=== PATIENT | male | born 1935 | race Caucasian/White ===

== ENCOUNTER 2017-06-17 22:26 | Observation (INO) | payer MEDICARE, OTHER ==
[~2017-06-17 22:26] MED LIST: ASPI81 PO; ATOR20TA42 PO; DIOV80TA4 PO; GLYB1TAB51 PO; LORT5TAB PO; TOPR50TA PO
[2017-06-17 22:28] VITALS: BP 169/83; PULSE 82; RESP 16; TEMP 98.1; O2SAT 96
[2017-06-17 22:37] VITALS: BP 170/79; PULSE 58; RESP 18; O2SAT 96
[2017-06-17 22:40] VITALS: O2SAT 96
[2017-06-17 23:00] VITALS: BP 141/68; PULSE 60; RESP 16; O2SAT 97
[2017-06-17] MEDS ORDERED: PROP10TA6 PO (23:09)
[2017-06-17] MEDS ORDERED: METF850T PO (23:09)
[2017-06-17] MEDS ORDERED: MAGNESIUM PO (23:09)
[2017-06-17] MEDS ORDERED: GLIP10TA6 PO (23:09)
[2017-06-17] MEDS ORDERED: ASPI81CH6 CHEW (23:09)
[2017-06-17] MEDS ORDERED: LOSA100T2 PO (23:09)
[2017-06-17 23:13] LABS: AUTOMATED NEUTROPHIL # 4.2 TH/MM3 (1.8-7.7); BASOPHIL # 0.1 TH/MM3 (0-0.2); BASOPHIL % 0.7 % (0.0-2.0); EOSINOPHIL # 0.5 TH/MM3 (0-0.4); HEMATOCRIT 39.2 % (39.0-51.0); HEMOGLOBIN 13.8 GM/DL (13.0-17.0); LYMPH % 31.2 % (9.0-44.0); LYMPHOCYTE # 2.4 TH/MM3 (1.0-4.8); MEAN CELL VOLUME 90.7 FL (80.0-100.0); MEAN CORPUSCULAR HGB CONC 35.3 % (32.0-36.0); MEAN PLATELET VOLUME 8.1 FL (7.0-11.0); MONO % 8.1 % (0.0-8.0); MONOCYTE # 0.6 TH/MM3 (0-0.9); PLATELET COUNT 272 TH/MM3 (150-450); RED BLOOD COUNT 4.32 MIL/MM3 (4.50-5.90); RED CELL DISTRIBUTION WIDTH 13.4 % (11.6-17.2); WHITE BLOOD COUNT 7.7 TH/MM3 (4.0-11.0)
[2017-06-17 23:18] LABS: PROTHROMBIN TIME - PATIENT 10.2 SEC (9.8-11.6)
--- NOTE | 2017-06-17 23:20 | RADRPT ---
EXAM DATE/TIME: 06/17/2017 22:59 [place] COMPARISON: No previous studies available for comparison. INDICATIONS : Chest pain. MEDICAL HISTORY : None. SURGICAL HISTORY : Coronary artery stent. ENCOUNTER: Initial ACUITY: 1 day PAIN SCORE: 7/10 LOCATION: Bilateral chest FINDINGS: Portable AP view of the chest demonstrates a normal-sized cardiac silhouette. No effusion, consolidat ion, or pneumothorax is visualized. The bones and soft tissues demonstrate no acute abnormality. CONCLUSION: No acute cardiopulmonary abnormality is identified. Cheng Jorge MD on June 17, 2017 at 23:18 Board Certified Radiologist. This report was verified electronically.
--- NOTE | 2017-06-17 23:23 | PD ---
HPI Chief Complaint: Chest Pain Time Seen by Provider: 22:35 Travel History International Travel<30 days: No Contact w/Intl Traveler<30days: No Traveled to known affect area: No History of Present Illness HPI The patient is an 82 year old male who presents to the [facility] emergency department with a history of chest pain that he reports began 45 minutes to 50 minutes prior to arrival. The patient reports that it began after he ate oatmeal. He reports that it is a tightening sensation across the lower anterior chest bilaterally. The patient denies having any new shortness of breath. He reports that he has chronic shortness of breath related to having collapsed lungs bilaterally years ago. He denies having any diaphoresis. He reports that he has had some nausea without vomiting. He reports that he has had nausea 3 times throughout the day today. He denies having any diarrhea. He reports that the pain was initially an 8 out of 10 in severity and now it is a 6 out of 10 in severity. It has been constant since the onset. The patient does have a known history of coronary artery disease. The patient reports having 2 prior MIs in the past. He has also had 2 stents placed previously. This was reportedly in the year 1999. He reports that his last stress test was 2-3 years ago. He is followed by Dr. Blum for his cardiac care. On review systems, the patient denies having any recent fevers, cough, congestion, neck pain, abdominal pain, vomiting, diarrhea, new urinary symptoms, or neurologic symptoms. [facility] Past Medical History Narrative Medical The patient's past medical history is significant for diabetes mellitus, hypertension, hyperlipidemia, history of having a collapsed lung bilaterally, history of coronary artery disease with 2 prior stents placed, history of myocardial infarction. Diabetes: Yes Patient Takes Glucophage: No Diminished Hearing: No Hypertension: Yes Respiratory: Yes (PNEUMOTHORAX X2 ) Tetanus Vaccination: Unknown Influenza Vaccination: Yes Past Surgical History Narrative Surgical The patient's past surgical history is significant for skin cancer resection, coronary artery catheterization with 2 stents placed previously, dental extractions Coronary Stent: Yes Social History Alcohol Use: Yes (1-2 beers per month) Tobacco Use: No (59 YR AGO) Substance Use: No Allergies-Medications (Allergen,Severity, Reaction): Uncoded Allergies: STATINS (Allergy, Unknown, ITCHING, 06/17/17) Reported Meds & Prescriptions Reported Meds & Active Scripts Active Reported [crestor] Metformin (Metformin HCl) 850 Mg Tab 850 Mg PO TIDPC Glipizide 10 Mg Tab 10 Mg PO BIDAC Take 30 minutes before a meal Propranolol (Propranolol HCl) 10 Mg Tab 100 Mg PO TID Losartan-Hydrochlorothiazide 100-25 Mg Tab 1 Tab PO DAILY [Magnesium] 1 Tab PO DAILY Aspirin Low Dose (Aspirin) 81 Mg Chew 81 Mg CHEW DAILY Review of Systems Except as stated in HPI: all other systems reviewed are Neg General / Constitutional: No: Fever Eyes: No: Visual changes HENT: No: Headaches, Rhinorrhea, Congestion Cardiovascular: Positive: Chest Pain or Discomfort Respiratory: Positive: Shortness of Breath (chronic shortness of breath), No: Cough Gastrointestinal: No: Nausea, Vomiting, Diarrhea, Abdominal Pain Genitourinary: No: Dysuria Musculoskeletal: No: Pain Skin: No Rash Neurologic: No: Weakness, Focal Abnormalities, Change in Mentation, Slurred Speech, Sensory Disturbance Psychiatric: No: Depression Endocrine: No: Polydipsia Hematologic/Lymphatic: No: Easy Bruising Physical Exam Narrative General: The patient is a well-developed well-nourished male in no acute distress. Head and Neck exam: Head is normocephalic atraumatic. Eyes: EOMI, pupils are equal round and reactive to light. Nose: Midline septum with pink mucous membranes Mouth: Dentition unremarkable. Moist mucus membranes. Posterior oropharynx is not erythematous. No tonsillar hypertrophy. Uvula midline. Airway patent. Neck: No palpable lymphadenopathy. No nuchal rigidity. No thyromegaly. Cardiovascular: Regular rate and rhythm without murmurs, gallops, or rubs. Lungs: Clear to auscultation bilaterally. No wheezes, rhonchi, or rales. Abdomen: Soft, without tenderness to palpation in all 4 quadrants of the abdomen. No guarding, rebound, or rigidity. Normal bowel sounds are audible. No tenderness on palpation of McBurney's point. Negative Souza's sign. Extremities: No clubbing, cyanosis, or edema. 2+ pulses in all 4 extremities. No calf tenderness on palpation. Back: No spinous process tenderness to palpation. No costovertebral angle tenderness to palpation. Neurologic Exam: Grossly nonfocal. Skin Exam: No rash noted. Intact skin that is warm and dry. Data Data Last Documented VS Vital Signs Date Time Temp Pulse Resp B/P (MAP) Pulse Ox O2 Delivery O2 Flow Rate FiO2 06/18/17 01:00 71 16 92/54 (67) 99 Room Air 06/17/17 22:28 98.1 Orders Orders Electrocardiogram (06/17/17 22:50) Complete Blood Count With Diff (06/17/17 22:50) Comprehensive Metabolic Panel (06/17/17 22:50) Creatine Kinase (Cpk) (06/17/17 22:50) Ckmb (Isoenzyme) Profile (06/17/17 22:50) Troponin I (06/17/17 22:50) B-Type Natriuretic Peptide (06/17/17 22:50) Prothrombin Time / Inr (Pt) (06/17/17 22:50) Act Partial Throm Time (Ptt) (06/17/17 22:50) Lipase (06/17/17 22:50) Urinalysis - C+S If Indicated (06/17/17 22:50) Magnesium (Mg) (06/17/17 22:50) Chest, Single Ap (06/17/17 22:50) Iv Access Insert/Monitor (06/17/17 22:50) Ecg Monitoring (06/17/17 22:50) Oximetry (06/17/17 22:50) Nitroglycerin 2% Oint (Nitroglycerin 2% (06/17/17 23:30) Nitroglycerin Sl (Nitrostat Sl) (06/17/17 23:30) Famotidine Inj (Pepcid Inj) (06/17/17 23:30) Ondansetron Inj (Zofran Inj) (06/17/17 23:30) Activity Bed Rest With Brp (06/18/17 02:00) Vital Signs (Adult) Q4H (06/18/17 02:00) Cardiac Rhythm .As Directed (06/18/17 02:00) Notify Dr: Other .PRN (06/18/17 02:00) Notify Parameters (06/18/17 02:00) Resp Oxygen Nasal Cannula (06/18/17 ) Ckmb (Isoenzyme) Profile (06/18/17 02:00) Ckmb (Isoenzyme) Profile (06/18/17 05:00) Troponin I (06/18/17 02:00) Troponin I (06/18/17 05:00) Electrocardiogram (06/18/17 02:00) Electrocardiogram (06/18/17 05:00) ^ Obtain (06/18/17 02:00) Sodium Chloride 0.9% Flush (Ns Flush) (06/18/17 02:00) Sodium Chloride 0.9% Flush (Ns Flush) (06/18/17 09:00) Commercial Finance Analyst / Telemetry BEV.Q8H (06/18/17 02:00) Admit Order (Ed Use Only) (06/18/17 02:00) Labs Laboratory Tests Test 06/17/17 22:50 06/18/17 02:00 White Blood Count 7.7 TH/MM3 Red Blood Count 4.32 MIL/MM3 Hemoglobin 13.8 GM/DL Hematocrit 39.2 % Mean Corpuscular Volume 90.7 FL Mean Corpuscular Hemoglobin 32.0 PG Mean Corpuscular Hemoglobin Concent 35.3 % Red Cell Distribution Width 13.4 % Platelet Count 272 TH/MM3 Mean Platelet Volume 8.1 FL Neutrophils (%) (Auto) 54.0 % Lymphocytes (%) (Auto) 31.2 % Monocytes (%) (Auto) 8.1 % Eosinophils (%) (Auto) 6.0 % Basophils (%) (Auto) 0.7 % Neutrophils # (Auto) 4.2 TH/MM3 Lymphocytes # (Auto) 2.4 TH/MM3 Monocytes # (Auto) 0.6 TH/MM3 Eosinophils # (Auto) 0.5 TH/MM3 Basophils # (Auto) 0.1 TH/MM3 CBC Comment DIFF FINAL Differential Comment Prothrombin Time 10.2 SEC Prothromb Time International Ratio 1.0 RATIO Activated Partial Thromboplast Time 24.4 SEC Blood Urea Nitrogen 27 MG/DL Creatinine 1.57 MG/DL Random Glucose 185 MG/DL Total Protein 8.0 GM/DL Albumin 3.8 GM/DL Calcium Level 9.3 MG/DL Magnesium Level 1.7 MG/DL Alkaline Phosphatase 99 U/L Aspartate Amino Transf (AST/SGOT) 72 U/L Alanine Aminotransferase (ALT/SGPT) 45 U/L Total Bilirubin 0.4 MG/DL Sodium Level 138 MEQ/L Potassium Level 3.8 MEQ/L Chloride Level 100 MEQ/L Carbon Dioxide Level 28.2 MEQ/L Anion Gap 10 MEQ/L Estimat Glomerular Filtration Rate 43 ML/MIN Total Creatine Kinase 49 U/L Troponin I LESS THAN 0.02 NG/ML B-Type Natriuretic Peptide 23 PG/ML Lipase 160 U/L Urine Color YELLOW Urine Turbidity CLEAR Urine pH 5.0 Urine Specific [place] 1.018 Urine Protein TRACE mg/dL Urine Glucose (UA) 300 mg/dL Urine Ketones NEG mg/dL Urine Occult Blood NEG Urine Nitrite NEG Urine Bilirubin NEG Urine Urobilinogen 2.0 MG/DL Urine Leukocyte Esterase NEG Urine RBC 1 /hpf Urine WBC LESS THAN 1 /hpf Urine Squamous Epithelial Cells <1 /hpf Urine Hyaline Casts 1 /lpf Urine Mucus FEW /lpf Microscopic Urinalysis Comment CULT NOT INDICATED MDM Medical Decision Making Medical Screen Exam Complete: Yes Emergency Medical Condition: Yes Medical Record Reviewed: Yes Interpretation(s) Last Impressions Myocardial Perfusion Scan Nuc Med 06/18/17 0000 Signed Impressions: Service Date/Time: Sunday, June 18, 2017 13:13 - CONCLUSION: 1. Large size moderate to marked severity reversible defect involving the entire anterior wall and potentially the apex. Ischemia is not excluded. RISK CATEGORY: High (>3%% Annual Mortality Rate) Noe Nichole MD Chest X-Ray 06/17/17 2250 Signed Impressions: Service Date/Time: Saturday, June 17, 2017 22:59 - CONCLUSION: No acute cardiopulmonary abnormality is identified. Cheng Jorge MD Differential Diagnosis Acute coronary syndrome, versus dyspepsia, versus acid reflux, versus pancreatitis, versus biliary colic, versus gastritis Narrative Course During the course of the patients emergency department visit, the patients history, examination, and differential diagnosis were reviewed with the patient. The patient was placed on a hall monitor with oximetry and frequent blood pressure monitoring. The patient had IV access obtained and blood work sent for analysis. The patient had an EKG done on arrival that shows a sinus rhythm heart rate of 74, inferior TX that appears to be old with Q-wave in lead 3, aVF, QRS duration is 107 ms, QTC [address] segment elevation is noted. T waves are inverted in V1. The patient was initially provided nitroglycerin 1 inch the chest wall, nitroglycerin sublingual every 5 minutes 3 when necessary chest pain. The patient took 2 adult dosed aspirin prior to arrival. The patient was given famotidine 20 mg IV, Zofran 4 mg IV for nausea. The patients laboratory studies were reviewed and remarkable for A CBC that shows a white count of 7.7, hemoglobin 13.8, platelets 272 with 8.1 monocytes, CMP is remarkable for a BUN of 27, creatinine 1.57, glucose 185, AST 72, cardiac enzymes initial set are within normal limits, BNP is 23, lipase 160. PT 10.2, PTT 24.4. Urinalysis is unremarkable. Radiology studies were reviewed and remarkable for a chest x-ray that shows no acute cardiopulmonary disease. The patients results were discussed with the patient, including the plan of care. I explained that further testing and/ or monitoring is indicated based on the patients history, examination, and/ or laboratory findings. Therefore, I recommended admission for additional evaluation. The patient expressed understanding and was agreeable with this plan. The patient was admitted to the hospital in stable condition and sent to a bed under the care of chest pain center. Diagnosis Primary Impression: Chest pain, rule out acute myocardial infarction Admitting Information Admitting Physician Requests: Neema Oswald MD Jun 17, 2017 23:23
[2017-06-17 23:24] LABS: ALBUMIN 3.8 GM/DL (3.4-5.0); ALT (GPT) 45 U/L (12-78); AST (GOT) 72 U/L (15-37); BICARBONATE 28.2 MEQ/L (21.0-32.0); BLOOD UREA NITROGEN 27 MG/DL (7-18); CALCIUM 9.3 MG/DL (8.5-10.1); CHLORIDE 100 MEQ/L (98-107); CREATININE 1.57 MG/DL (0.60-1.30); GLOMERULAR FILTRATION RATE 43 ML/MIN (>89); GLUCOSE,RANDOM 185 MG/DL (74-106); MAGNESIUM 1.7 MG/DL (1.5-2.5); SODIUM (NA) 138 MEQ/L (136-145)
[2017-06-17 23:28] LABS: ALKALINE PHOSPHATASE 99 U/L (45-117); TOTAL BILIRUBIN ADULT 0.4 MG/DL (0.2-1.0); TROPONIN I LESS THAN 0.02 NG/ML (0.02-0.05)
[2017-06-17] MEDS ORDERED: FAMOTIDINE 20 MG/2 ML VIAL IV PUSH SCH (23:30)
[2017-06-17] MEDS ORDERED: ONDANSETRON HCL 4 MG/2 ML VIAL IV ONE (23:30)
[2017-06-17] MEDS ORDERED: NITROGLYCERIN 2% OINT 1 GM PACKET TOPICAL ONE (23:30)
[2017-06-17] MEDS ORDERED: NITROGLYCERIN 0.4 MG SL 25 TABS/BTL SL PRN (23:30)
[2017-06-18] VITALS (15 sets, daily range): BP systolic 92–139; BP diastolic 54–86; PULSE 60–90; RESP 16–18; TEMP 97.4–98.7; O2SAT 94–99
[2017-06-18] MEDS ORDERED: SODIUM CHLORIDE 0.9% FLUSH 10 ML FLUSH IV FLUSH PRN (02:00)
[2017-06-18 02:36] LABS: BILIRUBIN, URINE NEG (NEG); BLOOD, URINE NEG (NEG); GLUCOSE,URINE 300 mg/dL (NEG); HYALINE CAST, URINE 1 /lpf (RARE); KETONE, URINE NEG (NEG); MUCUS URINE FEW /lpf (OCC); NITRITE,URINE NEG (NEG); SQUAMOUS EPITHELIAL CELL URINE <1 /hpf (0-5); URINE COLOR YELLOW (YELLW/STRAW); URINE LEUKOCYTE ESTERASE NEG (NEG)
[2017-06-18 02:48] LABS: TROPONIN I LESS THAN 0.02 NG/ML (0.02-0.05)
[2017-06-18 05:24] LABS: TROPONIN I LESS THAN 0.02 NG/ML (0.02-0.05)
[2017-06-18] MEDS ORDERED: GLUCAGON 1 MG/ML VIAL OTHER PRN (07:45)
[2017-06-18] MEDS ORDERED: DEXTROSE 50% IN WATER 50 ML VIAL(D50) IV PUSH PRN (07:45)
[2017-06-18] MEDS: INSULIN ASPART SUPPLEMENTAL SCALE SQ SCH ×3 (08:00→21:18)
--- NOTE | 2017-06-18 11:24 | HHI.HP ---
[facility] Primary Care Physician Paramjit Guthrie MD Chief Complaint Chest pain History of Present Illness This is an 82-year-old male that presents to ED with a complaint of developing a discomfort last night. He has history of hypertension, diabetes, and CAD. He states that 3 MIs. He had 2 stents in 1999. He currently follows Dr. Blum and saw her a few months ago. Believes his last stress test was a few years ago that was okay. States that last night while at home he developed a discomfort. Describes the discomfort as a tightness across the entire chest. Seemed to worsen as time went on. He states he was given sublingual nitroglycerin in the ED which did not change his symptoms. States that eventually the symptoms resolved within about 2 hours. He had no associated shortness of breath, nausea, or diaphoresis. States that it does not feel similar to when he needed stents in 1999. Currently denies chest discomfort. Denies recent fevers or chills. Denies recent illness. States he has been compliant with his medications. Review of Systems General: Patient denies fevers, chills recent, and recent travel HEENT: Patient denies headache, sore throat, difficulty swallowing. Cardiovascular: Has the chest discomfort as mentioned above. Denies sensation of heart beating rapidly or irregularly. No syncope. Denies diaphoresis. Respiratory: Denies shortness of breath or inspirational chest discomfort. Denies coughing wheezing or hemoptysis. GI: Patient denies nausea, vomiting, diarrhea, abdominal pain, bloody stools. Musculoskeletal: Patient denies joint pain or edema. Denies calf pain or edema. Neurovascular: Patient denies numbness, tingling, weakness in extremities. Denies headache. Endocrine: Denies polyuria and polydipsia. Hematologic: Denies easy bruising. Skin: Denies rash or itching. Past Family Social History Allergies: Uncoded Allergies: STATINS (Allergy, Unknown, ITCHING, 06/17/17) Past Medical History CAD. Has had 2 stents. Hypertension, diabetes, hyperlipidemia. Past Surgical History Has had cardiac catheterizations. Had stents in 1999. Reported Medications Reported Meds & Active Scripts Active Reported Metformin (Metformin HCl) 850 Mg Tab 850 Mg PO TIDPC Glipizide 10 Mg Tab 10 Mg PO BIDAC Take 30 minutes before a meal Propranolol (Propranolol HCl) 10 Mg Tab 100 Mg PO TID Losartan-Hydrochlorothiazide 100-25 Mg Tab 1 Tab PO DAILY [Magnesium] 1 Tab PO DAILY Aspirin Low Dose (Aspirin) 81 Mg Chew 81 Mg CHEW DAILY Active Ordered Medications Current Medications Medications (Trade) Dose Ordered Sig/Gómez Route Start Time Stop Time Status Last Admin (Nitrostat Sl) 0.4 mg Q5M PRN SL 06/17/17 23:30 06/17/17 23:50 (Pepcid Inj) 20 mg NOW IV PUSH 06/17/17 23:30 06/17/17 23:50 (NS Flush) 2 ml UNSCH PRN IV FLUSH 06/18/17 02:00 (NS Flush) 2 ml BID IV FLUSH 06/18/17 09:00 (D50w (Vial) Inj) 50 ml UNSCH PRN IV PUSH 06/18/17 07:45 (Glucagon Inj) 1 mg UNSCH PRN OTHER 06/18/17 07:45 (NovoLOG SUPPLEMENTAL SCALE) 1 ACHS SLIDING SCALE SQ 06/18/17 08:00 (Inderal) 100 mg TID PO 06/18/17 09:00 UNV Non-Formulary Medication 1 tab DAILY PO 06/18/17 09:00 UNV Family History There is family history of CAD. Social History Quit smoking 60 years ago. States he smoked less than a half a pack a day for 10 years. Has an occasional beer. Denies illicit drugs. He has been for 61 years. Physical Exam Vital Signs Vital Signs Date Time Temp Pulse Resp B/P (MAP) Pulse Ox O2 Delivery O2 Flow Rate FiO2 06/18/17 09:03 96 21 06/18/17 08:00 97.4 67 18 128/66 (86) 96 06/18/17 04:15 97.6 68 18 132/65 (87) 95 06/18/17 03:33 06/18/17 03:00 68 16 138/65 (89) 97 Room Air 06/18/17 01:00 71 16 92/54 (67) 99 Room Air 06/18/17 00:10 63 16 120/58 (78) 98 Room Air 06/18/17 00:00 60 16 104/62 (76) 97 Room Air 06/17/17 23:00 60 16 141/68 (92) 97 Room Air 06/17/17 22:40 96 Room Air 06/17/17 22:37 58 18 170/79 (109) 96 06/17/17 22:28 98.1 82 16 169/83 (111) 96 Room Air Physical Exam GENERAL: This is a well-nourished, well-developed patient, in no apparent distress. Patient speaks in clear complete sentences. Patient is pleasant. HEENT: Head is atraumatic and normocephalic. Neck is supple without lymphadenopathy and trachea is midline. No JVD. Right carotid bruit. CARDIOVASCULAR: Grade 2 systolic murmur left sternal border. Regular rate and rhythm without gallops, or rubs. RESPIRATORY: Clear to auscultation. Breath sounds equal bilaterally. No wheezes , rales, or rhonchi. Chest wall is nontender. No use of accessory muscles. GASTROINTESTINAL: Abdomen is nontender, nondistended. Abdomen soft. No obvious pulsatile mass or bruit. No CVA tenderness. Strong femoral pulses bilaterally. Normal bowel sounds in all quadrants. MUSCULOSKELETAL: Patient is moving upper and lower extremities freely. No calf tenderness or edema, no Homans sign. Strong pulses in upper and lower extremities. NEUROLOGICAL: Patient is alert and oriented. Cranial nerves 2-12 are grossly intact. No focal deficits and speech is clear. SKIN: No rash and turgor is normal. Laboratory Laboratory Tests Test 06/17/17 22:50 06/18/17 02:00 06/18/17 02:15 06/18/17 04:10 White Blood Count 7.7 Red Blood Count 4.32 Hemoglobin 13.8 Hematocrit 39.2 Mean Corpuscular Volume 90.7 Mean Corpuscular Hemoglobin 32.0 Mean Corpuscular Hemoglobin Concent 35.3 Red Cell Distribution Width 13.4 Platelet Count 272 Mean Platelet Volume 8.1 Neutrophils (%) (Auto) 54.0 Lymphocytes (%) (Auto) 31.2 Monocytes (%) (Auto) 8.1 Eosinophils (%) (Auto) 6.0 Basophils (%) (Auto) 0.7 Neutrophils # (Auto) 4.2 Lymphocytes # (Auto) 2.4 Monocytes # (Auto) 0.6 Eosinophils # (Auto) 0.5 Basophils # (Auto) 0.1 CBC Comment DIFF FINAL Differential Comment Prothrombin Time 10.2 Prothromb Time International Ratio 1.0 Activated Partial Thromboplast Time 24.4 Blood Urea Nitrogen 27 Creatinine 1.57 Random Glucose 185 Total Protein 8.0 Albumin 3.8 Calcium Level 9.3 Magnesium Level 1.7 Alkaline Phosphatase 99 Aspartate Amino Transf (AST/SGOT) 72 Alanine Aminotransferase (ALT/SGPT) 45 Total Bilirubin 0.4 Sodium Level 138 Potassium Level 3.8 Chloride Level 100 Carbon Dioxide Level 28.2 Anion Gap 10 Estimat Glomerular Filtration Rate 43 Total Creatine Kinase 49 40 33 Troponin I LESS THAN 0.02 LESS THAN 0.02 LESS THAN 0.02 B-Type Natriuretic Peptide 23 Lipase 160 Urine Color YELLOW Urine Turbidity CLEAR Urine pH 5.0 Urine Specific [place] 1.018 Urine Protein TRACE Urine Glucose (UA) 300 Urine Ketones NEG Urine Occult Blood NEG Urine Nitrite NEG Urine Bilirubin NEG Urine Urobilinogen 2.0 Urine Leukocyte Esterase NEG Urine RBC 1 Urine WBC LESS THAN 1 Urine Squamous Epithelial Cells <1 Urine Hyaline Casts 1 Urine Mucus FEW Microscopic Urinalysis Comment CULT NOT INDICATED Result Diagram: 06/17/17224906/17/172249 Imaging Last 48 hours Impressions Chest X-Ray 06/17/172249 Signed Impressions: Service Date/Time: Saturday, June 17, 2017 22:59 - CONCLUSION: No acute cardiopulmonary abnormality is identified. Cheng Jorge MD Course EKGs are sinus rhythm without significant ST segment depressions or elevations. Caprini VTE Risk Assessment Caprini VTE Risk Assessment: Mod/High Risk (score >= 2) Caprini Risk Assessment Model Point Value = 1 Point Value = 2 Point Value = 3 Point Value = 5 Age 41-60 Minor surgery BMI > 25 kg/m2 Swollen legs Varicose veins or History of unexplained or recurrent spontaneous Oral contraceptives or hormone replacement Sepsis (< 1 month) Serious lung disease, including pneumonia (< 1 month) Abnormal pulmonary function Acute myocardial infarction Congestive heart failure (< 1 month) History of inflammatory bowel disease Medical patient at bed rest Age 61-74 Arthroscopic surgery Major open surgery (> 45 min) Laparoscopic surgery (> 45 min) Malignancy Confined to bed (> 72 hours) Immobilizing plaster cast Central venous access Age >= 75 History of VTE Family history of VTE Factor V Leiden Prothrombin [id number] Lupus anticoagulant Anticardiolipin antibodies Elevated serum homocysteine Heparin-induced thrombocytopenia Other congenital or acquired thrombophilia Stroke (< 1 month) Elective arthroplasty Hip, pelvis, or leg fracture Acute spinal cord injury (< 1 month) Prophylaxis Regimen Total Risk Factor Score Risk Level Prophylaxis Regimen 0-1 Low Early ambulation 2 Moderate Order ONE of the following: *Sequential Compression Device (SCD) *Heparin 5000 units SQ BID 3-4 Higher Order ONE of the following medications: *Heparin 5000 units SQ TID *Enoxaparin/Lovenox 40 mg SQ daily (WT < 150 kg, CrCl > 30 mL/min) *Enoxaparin/Lovenox 30 mg SQ daily (WT < 150 kg, CrCl > 10-29 mL/min) *Enoxaparin/Lovenox 30 mg SQ BID (WT < 150 kg, CrCl > 30 mL/min) AND/OR *Sequential Compression Device (SCD) 5 or more Highest Order ONE of the following medications: *Heparin 5000 units SQ TID (Preferred with Epidurals) *Enoxaparin/Lovenox 40 mg SQ daily (WT < 150 kg, CrCl > 30 mL/min) *Enoxaparin/Lovenox 30 mg SQ daily (WT < 150 kg, CrCl > 10-29 mL/min) *Enoxaparin/Lovenox 30 mg SQ BID (WT < 150 kg, CrCl > 30 mL/min) AND *Sequential Compression Device (SCD) Assessment and Plan Assessment and Plan * Chest pain: Patient has had serial cardiac enzymes and EKGs for ruling out purposes. He has been seen by Dr. Noe Juarez of cardiology in the chest pain center and will undergo a Lexiscan. 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 Return to ED for interval issues. Dr. Blum is aware of patient and she will be notified if stress test is abnormal. * Hypertension: Continue current medication. * Diabetes: Patient will be on sliding scale insulin coverage. Resume medication at discharge. Follow diabetic diet. * Hyperlipidemia: Patient had not been taking statins for a while. States it made him itch. Recently he was placed on Crestor and has been taking it for 1 week and has had no issues. Patient to continue the medication follow-up with PCP. * CAD: This will be reassessed with stress testing. Patient is stable at this time. He is agreeable to this plan. Felipe Taavrez Jun 18, 2017 11:24
[2017-06-18] MEDS: SODIUM CHLORIDE 0.9% FLUSH 10 ML FLUSH IV FLUSH SCH ×2 (11:51→21:00)
[2017-06-18] MEDS ORDERED: LOSARTAN 50 MG TAB PO SCH (12:45)
[2017-06-18] MEDS ORDERED: HYDROCHLOROTHIAZIDE 25 MG TAB PO SCH (12:45)
[2017-06-18] MEDS ORDERED: PROPRANOLOL HCL 10 MG TAB PO SCH (13:00)
[2017-06-18] MEDS ORDERED: REGADENOSON INJ 0.4 MG/5 ML SYR ONE (13:14)
--- NOTE | 2017-06-18 14:28 | EKG ---
Date Performed: 06/18/2017 Time Performed: 02:13:12 PTAGE: 82 years EKG: Sinus rhythm INFERIOR MYOCARDIAL INFARCTION ABNORMAL ECG NO PREVIOUS TRACING DOCTOR: Noe Juaerz Interpretating Date/Time 06/18/2017 14:26:29
--- NOTE | 2017-06-18 14:29 | EKG ---
Date Performed: 06/17/2017 Time Performed: 22:40:28 PTAGE: 82 years EKG: Sinus rhythm INFERIOR MYOCARDIAL INFARCTION ABNORMAL ECG NO PREVIOUS TRACING DOCTOR: Noe Juarez Interpretating Date/Time 06/18/2017 14:27:27
--- NOTE | 2017-06-18 14:30 | EKG ---
Date Performed: 06/18/2017 Time Performed: 05:15:45 PTAGE: 82 years EKG: Sinus rhythm INFERIOR MYOCARDIAL INFARCTION ABNORMAL ECG PREVIOUS TRACING : 06/18/2017 02.13 Since previous tracing, no significant change noted DOCTOR: oNe Juarez Interpretating Date/Time 06/18/2017 14:28:41
--- NOTE | 2017-06-18 14:30 | TR ---
Date Performed: 06/18/2017 Time Performed: 13:32:48 DOCTOR: Noe Juarez DRUG LIST: CLINICAL HISTORY: CHEST PAIN REASON FOR TEST: CHEST PAIN REASON FOR ENDING: OBSERVATION: CONCLUSION: Lexiscan stress test was performed under standard four minute protocol. Radionuclid e was injected one minute prior to ending the test. No electrocardiographic abormalities were present to suggest ischemia. Nuclear imaging and interpretation are pending. COMMENTS:
--- NOTE | 2017-06-18 14:58 | RADRPT ---
EXAM DATE/TIME: 06/18/2017 13:13 [place] COMPARISON: No previous studies available for comparison. INDICATIONS : Substernal chest pain with nausea. Angina. Coronary artery disease. DOSE: 25.5 mCi Tc99m Myoview at stress. 8.5 mCi Tc99m Myoview at rest. 0.4 mg Lexiscan STRESS SYMPTOMS: None noted. EJECTION FRACTION: > 70% MEDICAL HISTORY : Hypertension. Diabetes mellitus type 2. Myocardial infarction. SURGICAL HISTORY : Coronary artery stent. ENCOUNTER: Initial ACUITY: 1 day PAIN SCALE: 6/10 LOCATION: Substernal chest TECHNIQUE: The patient underwent pharmacologic stress with infusion of prescribed dose. Continuous ECG tracing was monitored during stress. Gated SPECT imaging was performed after stress and conventional SPECT i maging was performed at rest. The examination was performed on a SPECT/CT scanner, both attenuation and non-corrected datasets were reviewed. FINDINGS: DISTRIBUTION: The maximum perfused segment at stress is in the septal wall. PERFUSION STUDY: There is a large size moderate to marked severity reversible defect involving the entire anterior wal l. This also extends the apex. Ischemia is not excluded. GATED STUDY: There is intact wall motion and thickening without hypokinetic or dyskinetic segments. CONCLUSION: 1. Large size moderate to marked severity reversible defect involving the entire anterior wall and po tentially the apex. Ischemia is not excluded. RISK CATEGORY: High (>3% Annual Mortality Rate) Noe Nichole MD on June 18, 2017 at 14:52 Board Certified Radiologist. This report was verified electronically.
[2017-06-18] MEDS ORDERED: crestor (15:17)
[2017-06-18] MEDS ORDERED: ASPIRIN 325 MG TAB PO SCH (15:45)
[2017-06-18] MEDS ORDERED: SODIUM CHLOR 0.9% 1000 ML INJ 1,000 ML IV SCH (16:00)
[2017-06-18] MEDS ORDERED: HEPARIN-NS/PF FLUSH BAG 1,000 ML IV FLUSH ONE (16:45)
[2017-06-18] MEDS ORDERED: VERAPAMIL HCL 5 MG/2 ML VIAL ONE (16:45)
[2017-06-18] MEDS ORDERED: HEPARIN SODIUM - IV 10,000 UNITS/10 ML VIAL ONE (16:45)
[2017-06-18] MEDS ORDERED: NITROGLYCERIN INJ 5 ML ONE (16:46)
[2017-06-18] MEDS ORDERED: MIDAZOLAM HCL 2 MG/2 ML VIAL ONE (16:52)
[2017-06-18] MEDS ORDERED: TICAGRELOR 90 MG TAB PO ONE (18:00)
--- NOTE | 2017-06-18 18:12 | CATHPROC ---
[employer] HIS Report Study Information Study Number Admission Scheduled Start Study Start [id number] Jun 18 2017 2:01AM 06/18/2017 Jun 18 2017 4:37PM [place] [facility] Cardiac Catheterization Admit Source Facility Department Emergency department [facility] - Customer Support Coordinator Physician and Clinical Staff Initial MD Waters, Tip Beebe RN, Sarah Yusuf RN Other cathlab, cathlab Recorder Pool Emerson RCIS(BS) Scrub Snehal Cummings RT(R) Procedures Performed Procedure Location (Site) Vessel Name Coronary Angiograms LCA Left Coronary Coronary Angiograms RCA Right Coronary Drug Eluting Inflatio CIRC Prox CIRC L Heart Cath PTCA CIRC Prox CIRC Wire insertion Radial (right) Radial Art. Equipment Time Workers Compensation Coordinator Description Size Mfg Part Number Used/Scraped WIRE, BALANCE MIDDLEWEIGHT [id number] 17:27 [employer] 190CM Used 190CM *[id number] WIRE, BALANCE MIDDLEWEIGHT [id number] 17:24 [employer] 300CM Used 300CM *[id number] WIRE, WHISPER W/HYDROCOAT [id number] 17:35 [employer] 190CM Used 190CM *[id number] TRANSDUCER, TRUWAVE [id number] 16:39 SMALLS ROBERTSON * Used W/STOCKCOCK *[id number] *[id number] 16:39 [employer] INDUSTRIES PACK, CCL CUSTOM * Used *[id number] 16:39 Garpun SUPPORT, ARTERIAL ADULT 34900 *[id number] Used [id number] 17:26 MEDTRONIC BALLOON, 2.5 X 10MM EUPHORA 10MM Used *[id number] BALLOON, 2.75 X 6MM NC [id number] 17:49 MEDTRONIC 6MM Used EUPHORA *[id number] 17:06 MEDTRONIC JR 4.0 DXTERITY CATHETER FR 5 Used *[id number] 17:43 MEDTRONIC STENT, 2.75 12MM JESS 2.75 12MM Used *[id number] 17:23 MEDTRONIC/AVE EBU 3.5 Z2 GUIDE CATHETER FR 6 Used *[id number] 17:20 iPrint 30 ISAIAH INDEFLATOR Used *[id number] BAND, RADIAL COMPRESSION TR [id number] 17:58 [employer] MEDICAL 29CM Used LARGE 29 *[id number] 16:39 [employer] MEDICAL WIRE, EXCHANGE 260CM 3MMJ 260CM Used *[id number] 16:39 NAMIC MANIFOLD, 4 PORT * Used *[id number] 16:39 NYCOMED OMNIPAQUE, 350 MG, 150ML 150ML [id number] Used [id number] 16:39 CENTENO MEDICAL BLANKET,WARM AIR CCL * Used *[id number] SHEATH, FR6 TRANSRADIAL [id number] 16:39 TERPerfectO MEDICAL FR 6 Used SLENDER 10CM *[id number] Equipment Model, Serial, Lot Number and Expiration Data Description Model Number Serial Number Lot Number Expiration Date STENT, 2.75 12MM JESS [id number] 01-11-2019 History: Current Medications Medication Dosage/Unit Route Frequency Last Date/Time Taken ASA Statins (any) Beta Dominga History: Allergies Allergy Reaction STATINS ITCHING History: Risk Factors Family History of Hypertension Dyslipidemia Previous MT Previous Heart Failure Premature CAD No Yes Yes Yes No Prior Valve Prior PCI Prior PCIDate Prior CABG Surgery No Yes 05/12/1999 No Cerebrovascular Peripheral Artery Chronic Lung On Dialysis Diabetes Diabetes Therapy Disease Disease Disease No No No No Yes Oral History: Symptoms/Diagnosis Selection Items Chest pain History: CV Disease Selection Items Known CAD History: Stress Tests Stress or Imaging Studies Performed Yes Standard Exercise Stress Test No Stress Echo No Stress Test SPECT Stress Test SPECT Result Stress Test SPECT Ischemia Risk/Extent Yes Positive Intermediate Stress Test CMR No Cardiac CTA Coronary Calcium Score No No History: Other Disease Selection Items CAD HTN History: MT/CV Data Previous Cath Date 05/12/1999 History: Other Current Smoker Method Quit Packs a Day Years Used Pack Years No Cigarettes 60 Years Ago 1 5 5 Labs Hgb (g/dl) Hct (%) WBC (l/cumm) Platelets (thousands) 11.60-17.00 35.00-51.00 4.00-11.00 150.00-450.00 13.8 39.2 7.7 272 Glucose (mg/dl) BUN (mg/dl) Creatinine (mg/dl) BUN:Creatinine (1:x) 74.00-106.00 7.00-18.00 0.50-1.30 10.00-20.00 185 27 1.5 18 Na (meq/l) K (meq/l) 136.00-145.00 3.50-5.10 138 3.8 INR (PTT:PT) 0.90-1.10 1 Troponin I (ng/ml) CPK (u/l) CPK-MB (ng/ML) 0.02-0.05 26.00-308.00 0.50-3.60 0.02 33 Not Drawn Medication Medication Total Dose (Bolus/Oral) Medication Total Dosage/Unit 1% XYLOCAINE 3 mL BRILINTA 180 mg FENTANYL 25 mcg HEPARIN 5500 units RADIAL COCKTAIL 5 mL (Bolus) VERSED 0.5 mg Medications (Bolus/Oral) Medication Time Given Dosage/Unit Administered By Reason 1% XYLOCAINE 06/18/2017 5:06:50 PM 3 mL Tip Waters 3 mL 1% XYLOCAINE given in lab by Tip Waters in Right Radial via Subcutaneous. VERSED 06/18/2017 5:07:56 PM 0.5 mg Sarah Ya 0.5 mg VERSED given in lab by Sarah Ya RN in Right Forearm via Peripheral IV. Ordered by Tip Mari FENTANYL 06/18/2017 5:08:06 PM 25 mcg Sarah Ya 25 mcg FENTANYL given in lab by Sarah Ya RN in Right Forearm via Peripheral IV. Ordered by Tip Lopes Ntg 200mcg Verapamil 2.5mg Heparin RADIAL COCKTAIL 06/18/2017 5:08:30 PM 5 mL (Bolus) Tip Waters 3000U 5 mL (Bolus) RADIAL COCKTAIL given in lab by Tip Waters in Right Radial via Radial. Using [S olution Name]. Reason: Ntg 200mcg Verapamil 2.5mg Heparin 4000U. HEPARIN 06/18/2017 5:24:34 PM 5500 units Sarah Ya 5500 units HEPARIN given in lab by Sarah Ya RN in Right Forearm via Peripheral IV. Ordered by Tip Waters BRILINTA 06/18/2017 6:05:02 PM 180 mg Sarah Ya 180 mg BRILINTA given in lab by Sarah Ya RN via Oral. Ordered by Tip Waters Medication (Drip) Medication Time Given Dosage/Unit Concentration/Unit Diluent (ml) Solution IV Solutions 06/18/2017 4:37:50 PM 0 mL (IV) 500 NaCl .9 Patient arrived on IV Solutions given by cathlab, cathlab in Right Forearm via Peripheral IV. Pump/Dr ip Flow = 20 ml/hr using NaCl .9. Ordered by Tip Waters Initial Case Assessment Cardiovascular HR Rhythm NIBP Chest Pain 77 nsr 143/88 0 Edema Present Skin color Skin None Normal Warm Dry Circulatory - Right Pulses Dorsalis Pedis Femoral Radial 2 2 2 Scale (0,1,2,3,4,d) Circulatory - Left Pulses Dorsalis Pedis Femoral Radial 2 2 Scale (0,1,2,3,4,d) Neurological State Oriented to time-place- Alert Moves all extremities person Respiration - General Respiration Rate SpO2 (%) (B/min) 15 99 Final Case Assessment Cardiovascular HR Rhythm NIBP Chest Pain 70 nsr 146/86 0 Edema Present Skin color Skin None Normal Warm Dry Circulatory - Right Pulses Dorsalis Pedis Femoral Radial 2 2 2 Scale (0,1,2,3,4,d) Circulatory - Left Pulses Dorsalis Pedis Femoral Radial 2 2 Scale (0,1,2,3,4,d) Neurological State Oriented to time-place- Alert Moves all extremities person Respiration - General Respiration Rate SpO2 (%) (B/min) 15 99 Chronological Log Time Study Chronological Log 16:30:00 Patient arrived via Bed. 16:30:24 Patient Name, D.O.B, / Armband Verified By R.N. 16:30:26 Consent signed by the physician and the patient and verified by the Customer Support Coordinator staff. 16:37:32 Pre-op and post- op instructions given; patient acknowledges understanding of instructions. 16:37:33 Verbal Stimulation=2 Physical Stimulation=2 Airway=2 Respiration=2 TOTAL=8. (0=absent, 1=li mited, 2=present) 16:37:41 Presedation assessment performed by Customer Support Coordinator RN. 16:37:42 Immediate Presedation assesment performed by physician. 16:37:42 Patient has been NPO for More than 6Hrs. 16:37:43 Skin Breakdown- none per patient 16:37:44 Patient Warmer Placed on the Table. 16:37:44 Guicho Prominences Protected 16:37:46 A # 20 IV was noted in the Forearm (right). Grade = 0 Patient arrived on IV Solutions given by cathlab, cathlab in Right Forearm via Peripheral IV. P ump/Drip Flow = 20 ml/hr 16:37:50 using NaCl .9. Ordered by Tip Waters 16:37:50 History and physical on the chart or being dictated. Vitals capture started with the following parameters, Patient=Adult, Interval=5 min, Initial Pr fzpowr=784 mmHg, 16:42:08 Deflation Rate=5 mmHg, Cuff placed on Left Arm 16:42:11 Reference ECG taken 16:43:21 HR=88 bpm, ONEB=055/84 mmhg, SpO2=96.0 %, Resp=14 B/min, Pain=0, Eb=10, Agosto=2 Assessment: Initial Case, HR=77 BPM, Rhythm=nsr, FYDI=111/88 mmhg, Chest Pain=0, Edema=None, Co alessandro=Normal, Skin = Warm, Dry Right Pulses: Rahat Ped=2, Femoral=2, Radial=2 16:44:00 Left Pulses: Rahat Ped=2, Femoral=2 Neurological: State=Alert, Ox3, DE DIOS Respiration: Resp=15 B/min, SpO2=99 % 16:47:45 HR=77 bpm, IYNO=627/88 mmhg, SpO2=97.0 %, Resp=11 B/min, Pain=0, Eb=10, Agosto=2 16:52:44 HR=77 bpm, JNQT=675/84 mmhg, SpO2=96.0 %, Resp=13 B/min, Pain=0, Eb=10, Agosto=2 16:56:10 Right Radial and groin(s) prepped with 2% chlorhexidine, and draped after a 3 min. waiting time. 16:57:43 HR=74 bpm, GFFN=616/89 mmhg, SpO2=97.0 %, Resp=10 B/min, Pain=0, Eb=10, Gaosto=2 16:59:15 MD arrived. 16:59:17 Contrast Scanned 16:59:18 Immediate Presedation assesment performed by physician. 17:02:44 HR=77 bpm, VLRJ=419/92 mmhg, SpO2=97 %, Resp=12 B/min, Pain=0, Eb=10, Agosto=2 17:04:41 Pressure channel 1 zeroed. Time Out. Correct patient, correct procedure, correct physician, power injector not loaded with contrast with surgical 17:06:03 team present. Time Out Concurred by MD and individual staff in procedure. 17:06:23 Case Start 17:06:26 Verbal Stimulation=2 Physical Stimulation=2 Airway=2 Respiration=2 TOTAL=8. (0=absent, 1=li mited, 2=present) 17:06:50 3 mL 1% XYLOCAINE given in lab by Tip Waters in Right Radial via Subcutaneous. 17:07:47 HR=75 bpm, SUKY=216/78 mmhg, SpO2=97.0 %, Resp=17 B/min, Pain=0, Eb=10, Agosto=2 0.5 mg VERSED given in lab by Sarah Ya, RN in Right Forearm via Peripheral IV. Ordered Tip Bee 17:07:56 G. 25 mcg FENTANYL given in lab by Sarah aY, RAHUL in Right Forearm via Peripheral IV. Ordered by Tip Waters 17:08:06 G. 17:08:16 Access site was Right Radial Artery. A SHEATH, FR6 TRANSRADIAL SLENDER 10CM FR 6 was advanced into the Radial (right) using the Perc utaneous 17:08:22 technique. 5 mL (Bolus) RADIAL COCKTAIL given in lab by Tip Waters in Right Radial via Radial. Us ing [Solution Name]. 17:08:30 Reason: Ntg 200mcg Verapamil 2.5mg Heparin 4000U. A JR 4.0 DXTERITY CATHETER FR 5 was advanced over a wire. OMNIPAQUE, 350 MG, 150ML 150ML was us ed for 17:08:47 injections. 17:12:44 HR=91 bpm, RTWY=110/78 mmhg, SpO2=94.0 %, Resp=11 B/min, Pain=0, Eb=10, Agosto=2 Recorded Pressure: LV, HR=93, Condition=Condition 1 17:12:51 (Left Ventricle) LV 113/-1/2 Recorded Pressure: LV, Ao, HR=92, Condition=Condition 1 17:13:05 (Left Ventricle) LV 113/-2/1, (Aorta) Ao 112/66/87 Recorded Pressure: Ao, HR=91, Condition=Condition 1 17:13:16 (Aorta) Ao 108/66/85 17:15:43 The RCA was injected and visualized at various angles. OMNIPAQUE, 350 MG, 150ML 150ML used . After removing the current catheter a JL 3.5 INFINITI CATHETER FR 5 was advanced over a WIRE, E XCHANGE 260CM 17:17:12 3MMJ 260CM. 17:17:41 HR=83 bpm, JVZC=406/73 mmhg, SpO2=96.0 %, Resp=14 B/min, Pain=0, Eb=10, Agosto=2 17:19:08 The LCA was injected and visualized at various angles. OMNIPAQUE, 350 MG, 150ML 150ML used . 17:22:45 HR=74 bpm, BDDJ=504/72 mmhg, SpO2=95.0 %, Resp=10 B/min, Pain=0, Eb=10, Agosto=2 After removing the current catheter a EBU 3.5 Z2 GUIDE CATHETER FR 6 was advanced over a WIRE, EXCHANGE 17:23:48 260CM 3MMJ 260CM. 5500 units HEPARIN given in lab by Sarah Ya, RN in Right Forearm via Peripheral IV. Orde red by Jt, 17:24:34 Tip Brooks 17:27:48 HR=74 bpm, PGTX=626/71 mmhg, SpO2=97.0 %, Resp=10 B/min, Pain=0, Eb=10, Agosto=2 17:28:20 A WIRE, BALANCE MIDDLEWEIGHT 190CM 190CM was inserted via Radial (right). 17:32:47 HR=73 bpm, VFMW=084/78 mmhg, SpO2=95.0 %, Resp=10 B/min, Pain=0, Eb=10, Agosto=2 17:36:53 A WIRE, WHISPER W/HYDROCOAT 190CM 190CM was inserted via Radial (right). 17:37:50 HR=70 bpm, JSLV=821/74 mmhg, SpO2=95 %, Resp=9 B/min, Pain=0, Eb=10, Agosto=2 17:39:47 Interventional wire has crossed the lesion A BALLOON, 2.5 X 10MM EUPHORA 10MM was inserted over WIRE, WHISPER W/HYDROCOAT 190CM 190CM via the 17:39:51 CIRC Prox. 17:40:27 BMW Wire removed 17:41:20 Activated Clotting Time Drawn A BALLOON, 2.5 X 10MM EUPHORA 10MM over a WIRE, WHISPER W/HYDROCOAT 190CM 190CM in the CIRC Pro x 17:41:32 was inflated using a 30 ISAIAH INDEFLATOR at 12 isaiah for 30 sec. 17:42:40 Balloon Removed. 17:42:47 HR=72 bpm, PSRY=200/86 mmhg, SpO2=99.0 %, Resp=11 B/min, Pain=0, Eb=10, Agosto=2 A STENT, 2.75 12MM JESS 2.75 12MM was advanced through a EBU 3.5 Z2 GUIDE CATHETER FR 6 over a WIRE, 17:44:16 WHISPER W/HYDROCOAT 190CM 190CM. 17:45:19 ACT (Normal Range 90-180) = 291 A STENT, 2.75 12MM JESS 2.75 12MM was deployed using a 30 ISAIAH INDEFLATOR at 14 atmospheres for 30 seconds 17:45:26 in the CIRC Prox. 17:46:11 Delivery device removed 17:48:33 HR=70 bpm, OYCK=746/89 mmhg, UrW7=841.0 %, Resp=15 B/min, Pain=0, Eb=10, Agosto=2 A BALLOON, 2.75 X 6MM NC EUPHORA 6MM was inserted over WIRE, WHISPER W/HYDROCOAT 190CM 190CM vi a the 17:49:04 CIRC Prox. 17:51:30 Balloon Removed. 17:52:19 A WIRE, BALANCE MIDDLEWEIGHT 190CM 190CM was inserted via Radial (right). 17:52:25 Interventional wire has crossed the lesion A BALLOON, 2.75 X 6MM NC EUPHORA 6MM was inserted over WIRE, WHISPER W/HYDROCOAT 190CM 190CM vi a the 17:52:50 CIRC Prox. 17:52:55 HR=71 bpm, YTXI=904/82 mmhg, SpO2=99.0 %, Resp=12 B/min 17:53:18 Wire removed A BALLOON, 2.75 X 6MM NC EUPHORA 6MM over a WIRE, WHISPER W/HYDROCOAT 190CM 190CM in the CIRC P nino 17:53:49 was inflated using a 30 ISAIAH INDEFLATOR at 16 isaiah for 16 sec. A BALLOON, 2.75 X 6MM NC EUPHORA 6MM over a WIRE, WHISPER W/HYDROCOAT 190CM 190CM in the CIRC P nino 17:54:34 was inflated using a 30 ISAIAH INDEFLATOR at 16 isaiah for 10 sec. A BALLOON, 2.75 X 6MM NC EUPHORA 6MM over a WIRE, WHISPER W/HYDROCOAT 190CM 190CM in the CIRC P nino 17:55:25 was inflated using a 30 ISAIAH INDEFLATOR at 18 isaiah for 14 sec. 17:56:30 Balloon Removed. 17:57:45 Wire removed 17:57:52 HR=70 bpm, YJRL=175/86 mmhg, SpO2=99.0 %, Resp=12 B/min, Pain=0, Eb=10, Agosto=2 17:58:01 Catheter was removed 17:59:51 Case End Assessment: Final Case, HR=70 BPM, Rhythm=nsr, QNFF=837/86 mmhg, Chest Pain=0, Edema=None, [place] r=Normal, Skin = Warm, Dry Right Pulses: Rahat Ped=2, Femoral=2, Radial=2 18:00:37 Left Pulses: Rahat Ped=2, Femoral=2 Neurological: State=Alert, Ox3, DE DIOS Respiration: Resp=15 B/min, SpO2=99 % 18:00:52 Catheter(s) removed without difficulty Radial Compression Device Used. 12 mLs of air placed in BAND, RADIAL COMPRESSION TR LARGE 29 2 9CM. Affected 18:00:53 hand 99 % O2 saturation. 18:01:02 Sterile dressing applied to site 18:01:03 No case complications noted. 18:01:03 Cine recording checked. 18:01:04 Bedside Report will be given. 18:01:05 Implantable Device card placed in patient's chart. 18:01:06 Contrast Scanned 18:01:07 Verbal Stimulation=2 Physical Stimulation=2 Airway=2 Respiration=2 TOTAL=8. (0=absent, 1=l imited, 2=present) 18:01:15 A Left Heart Cath was performed. 18:02:53 HR=67 bpm, XQRR=970/80 mmhg, SpO2=99.0 %, Resp=12 B/min, Pain=0, Eb=10, Agosto=2 18:05:02 180 mg BRILINTA given in lab by Sarah Ya RN via Oral. Ordered by Tip Waters 18:05:39 Vitals capture stopped. 18:10:59 Patient moved to [facility] End Study - Contrast Media Used In Study Contrast Total Opened (mL) Total Used (mL) Total Wasted (mL) Omnipaque 85 85 0 End Study - Maximum Contrast Load Max Contrast Load (mL) 316.7 End Study - Radiation Exposure Fluoro Time (minutes) 13.6 End Study - Patient Disposition Complications Transferred To Interventional Outcome No Telemetry Bed successful
[2017-06-18] MEDS: SODIUM CHLOR 0.9% 1000 ML INJ 1,000 ML IV SCH (18:33)
[2017-06-18] MEDS ORDERED: oxyCODONE/ACETAMINOPHEN 5 MG/325 MG TAB PO PRN (18:45)
[2017-06-18] MEDS ORDERED: ACETAMINOPHEN 325 MG TAB PO PRN (18:45)
[2017-06-18] MEDS ORDERED: MISC INFORMATION XX ONE (18:45)
[2017-06-18] MEDS ORDERED: MORPHINE SULFATE 4 MG/ML INJ IV PUSH PRN (18:45)
[2017-06-18] MEDS ORDERED: oxyCODONE/ACETAMINOPHEN 10 MG/325 MG TAB PO PRN (18:45)
[2017-06-18] MEDS: PROPRANOLOL HCL 20 MG TAB PO SCH (21:18)
[2017-06-19] VITALS (14 sets, daily range): BP systolic 114–146; BP diastolic 71–88; PULSE 61–88; RESP 16–20; TEMP 97.7; O2SAT 96–97
[2017-06-19] MEDS: SODIUM CHLOR 0.9% 1000 ML INJ 1,000 ML IV SCH (04:33)
[2017-06-19 05:54] LABS: AUTOMATED NEUTROPHIL # 4.5 TH/MM3 (1.8-7.7); BASOPHIL % 0.7 % (0.0-2.0); EOSINOPHIL # 0.4 TH/MM3 (0-0.4); EOSINOPHIL % 5.4 % (0.0-4.0); HEMATOCRIT 39.7 % (39.0-51.0); LYMPHOCYTE # 1.5 TH/MM3 (1.0-4.8); MEAN CELL VOLUME 92.2 FL (80.0-100.0); MEAN CORPUSCULAR HEMOGLOBIN 32.5 PG (27.0-34.0); MEAN CORPUSCULAR HGB CONC 35.2 % (32.0-36.0); MONO % 8.1 % (0.0-8.0); MONOCYTE # 0.6 TH/MM3 (0-0.9); NEUT % 64.8 % (16.0-70.0); PLATELET COUNT 259 TH/MM3 (150-450); RED BLOOD COUNT 4.31 MIL/MM3 (4.50-5.90); RED CELL DISTRIBUTION WIDTH 12.8 % (11.6-17.2)
[2017-06-19 06:01] LABS: CALCIUM 9.6 MG/DL (8.5-10.1); CREATININE 1.53 MG/DL (0.60-1.30)
--- NOTE | 2017-06-19 06:28 | MA ---
cc: TIP GUTIERREZ DO DATE OF PROCEDURE June 18, 2017 PROCEDURE Left heart catheterization, coronary angiogram, [facility] drug-eluting stent (2.75 x 12) to left circumflex, moderate sedation, 50 minutes PREPROCEDURE DIAGNOSIS Abnormal stress test, coronary artery disease, chest pain. POSTPROCEDURE DIAGNOSIS Unstable angina/coronary artery disease status post [place] drug-eluting stent (2.75 x 12) to left circumflex. MEDICATIONS 1. Versed 0.5 mg. 2. Fentanyl 25 mcg. 3. Verapamil 2.5 mg. 4. Nitro 200 mcg. 5. Heparin 9500 units. 6. Brilinta 180 mg. CONTRAST USED 85 cc. FLUOROSCOPY 13.6 minutes. MODERATE SEDATION 50 minutes. ESTIMATED BLOOD LOSS 10 cc. PROCEDURAL SUMMARY Rafael Morales is a pleasant 82-year-old male who sees my partner Dr. Blum in the office and presented with chest pain concerning for coronary insufficiency. He underwent stress testing which was called anterior ischemia. I reviewed the films and overall imaging is poor showing decreased uptake throughout all the fournier in comparison to the rest imaging. Overall I believe it is difficult to ascertain from the imaging if there is truly ischemia in any of the fournier. In discussing with Mr. Morales, his chest pain was definitely concerning and I felt that his next option should be cardiac catheterization. The risks, benefits and alternatives were explained to him and he consented as such. He was brought to lab and prepped in the usual sterile fashion. The right radial artery was accessed using a modified Seldinger technique and placement of a 5/6 Divehi Slender Sheath. This was easily aspirated and flushed. A JR-4 was advanced over a J-wire to the ascending aorta and across the aortic valve for measurement of left ventricular pressure. This was pulled back across the aortic valve showing no significant gradient of aortic stenosis. JR-4 was used for selective angiography of the right coronary artery system. This was exchanged out for a JL-3.5 which was used for selective angiography of the left coronary artery system. Please see intervention below for further notes. FINDINGS LEFT MAIN: Normal-sized vessel with adequate reflux. It bifurcates into an LAD and circumflex. LAD: Normal-sized vessel with mild disease in the proximal portion. The midportion has a stent which is patent with 30% in-stent restenosis. Distal of this there is diffuse 40-50% disease in the tmy-vd-tgvjgg portion of the LAD. The LAD gives off two major diagonals with no significant disease. LEFT CIRCUMFLEX Normal-sized vessel with a 95% stenosis in the proximal portion. It gives off two major obtuse marginals, one at the level of the stenosis and the other distally with no significant disease. RCA: Normal-sized vessel was diffuse 30% disease throughout the proximal portion. The midportion has a stent which is patent with 30% in-stent restenosis. LVEDP: 1. INTERVENTION Stress test showed possible anterior ischemia but the LAD obviously looked like it had diffuse disease distally but not felt to be as significant as the left circumflex by any means. He did have chest pain which was concerning for coronary insufficiency and with the significance of disease of his left circumflex at 95%, I felt that this should be intervened on. An EBU guide was engaged into the left main. A BMW was attempted to advance across the lesion but was unable to due to the transition point on the BMW. So, a moderate support Whisper wire was then advanced into the distal obtuse marginal. A compliant balloon (2.5 x 10) was then inflated over the lesion. An [facility] drug-eluting stent (2.75 x 12) was then inflated over the lesion. I was unable to get a Non-Compliant balloon past the front edge of the stent due to the angle of the takeoff and so a BMW wire was used as a kelsey wire and the Non-Compliant balloon (2.75 x 6) was then advanced and inflated over the length of the stent. Final angiogram shows a well opposed stent with no perforations or dissections and DORA-3 flow down the first obtuse marginal with no disruption of the coronary anatomy. Wire and guide were removed. A radial band was placed over the arteriotomy site for hemostasis. The patient was loaded with 180 mg of Brilinta. 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 IMPRESSION 1. Unstable angina/coronary artery disease status post Corbin drug-eluting stent (2.75 x 12). 2. Abnormal stress test with overall showing possible anterior ischemia, although review of the imaging shows poor uptake throughout most of the fournier and felt that overall this was a poor imaging study to determine his ischemic territories. 3. Diabetes mellitus. 4. Hyperlipidemia. RECOMMENDATIONS 1. Mr. Morales underwent PCI of his left circumflex with a drug-eluting stent and will be placed on aspirin and Brilinta therapy. 2. He is currently on beta luna and statin therapy and this will be continued. 3. We will hold off on adding FREDERIC inhibitor therapy due to his chronic kidney disease. If kidney function is stabilized, this could be reconsidered in the outpatient setting. 4. He will be watched overnight and if stable be discharged home tomorrow with a plan for followup with Dr. Blum in the near future. 5. His metformin will need to be held for 48 hours postprocedure. 6. Further recommendations will be made based on the hospital course. Thank you for allowing me to see Rafael Morales. If there are any questions, please do not hesitate to call. Tip Gutierrez DO VGP/SSB /6:13 PM /6:06 AM
--- NOTE | 2017-06-19 06:44 | MB ---
cc: TRAMAINE WATERS DO DATE OF CONSULTATION June 18, 2017 REASON FOR CONSULTATION Unstable angina, abnormal stress test. HISTORY OF PRESENT ILLNESS Rafael Morales is a pleasant 82-year-old male who sees my partner Dr. Blum in the office and presented to [facility] on June 18, 2017, due to chest pain. He states that last night after eating some oatmeal he sat down and started getting pain across the center his chest which was a tightness. It seemed to worsen as time went on and he eventually took some sublingual nitroglycerin in the emergency room which seemed to make the pain somewhat better. The pain ended up resolving around 2 hours after this while in the emergency room. He denies shortness of breath, nausea or diaphoresis with the episode. In seeing him, he is currently resting without chest pain or shortness of breath. PAST MEDICAL HISTORY 1. Coronary artery disease. 2. Hypertension. 3. Diabetes mellitus. 4. Hyperlipidemia. PAST SURGICAL HISTORY Previous cardiac catheterization (1999) with stenting of his RCA and LAD. ALLERGIES PREVIOUS STATINS, although attempting to take Crestor at this time. MEDICATIONS 1. Propranolol 100 mg t.i.d. 2. Losartan/hydrochlorothiazide 100/25 mg daily. 3. Aspirin 81 mg daily. 4. Metformin 850 mg t.i.d. 5. Glipizide 100 mg b.i.d. 6. Crestor unknown dose. FAMILY HISTORY Denies premature coronary artery disease or sudden cardiac within the family. SOCIAL HISTORY The patient previously smoked but quit 60 years ago. He smoked less than half a pack per day for 10 years. He occasionally will drink a beer. He denies any drug abuse. REVIEW OF SYSTEMS 14-systems were reviewed including osteopathic pertinent positives and negatives above, otherwise negative. PHYSICAL EXAMINATION VITAL SIGNS: Temperature 97.8, heart rate 70, blood pressure 123/71, respirations 18, pulse ox 94% on room air. IN GENERAL: The patient appears well, in no acute distress. Alert, awake and oriented x3. Extraocular muscles intact. Mucous membranes moist. NECK: Supple. No JVD at 45 degrees. No carotid bruits heard bilaterally. Carotid upstroke is brisk in nature. HEART: Regular rate and rhythm. Positive first and second heart sounds with no noted murmurs, gallops or rubs. LUNGS: Clear to auscultation bilaterally. No wheezes, rales or rhonchi. Abdomen: Soft, nontender, nondistended. No organomegaly noted. EXTREMITIES: No clubbing, cyanosis or edema. Femoral and distal pulses intact bilaterally. NEUROLOGICALLY: No focal deficits. SKIN: Warm, dry and intact. OSTEOPATHIC: No kyphoscoliosis, lordosis or paraspinal tender points. LABORATORY FINDINGS Hemoglobin 13.8, hematocrit 39.2, platelets 272. Potassium 3.8, BUN 27, creatinine 1.57. Troponin negative x3. IMPRESSIONS 1. Chest pain concerning for coronary insufficiency. 2. History of coronary artery disease. 3. Abnormal stress test. 4. Hypertension. 5. Diabetes mellitus. 6. Hyperlipidemia. 7. Chronic kidney disease verses acute kidney injury. RECOMMENDATIONS 1. Mr. Morales presented with what sounded like unstable angina with significant chest pain at rest. He did undergo stress testing and overall stress testing is poor, imaging showing decreased uptake throughout the whole left ventricle in comparison to the rest testing. Overall this was called anterior ischemia and I see what they are discussing but I find it difficult to determine any ischemia based on this as I think it is overall a poor imaging study. 2. Because of this, I will recommend cardiac catheterization as he has what sounds like significant chest pain and a stress test which overall I think it is difficult to diagnose ischemia. The risks, benefits and alternatives were explained to him and he consented as such. 3. We do not have a previous creatinine here. I attempted to call Dr. Guthrie, his primary care physician, to get a previous creatinine but they were closed at the time. I did get a previous creatinine from around a year ago from our office where his creatinine was around 1.4 and so I believe this is most likely his baseline. He will be lightly hydrated. 4. His metformin will need to be held 48 hours postprocedure. 5. Further recommendations will be made based on the hospital course. Thank you for allowing me to see Rafael Morales. If there are any questions, sujit do not hesitate to call. Tramaine Waters DO VGP/SSB /6:25 PM /6:17 AM
[2017-06-19] MEDS: INSULIN ASPART SUPPLEMENTAL SCALE SQ SCH (08:00)
[2017-06-19] MEDS ORDERED: TICAGRELOR 90 MG TAB PO SCH (09:00)
[2017-06-19] MEDS ORDERED: ASPIRIN 81 MG CHEW TAB CHEW SCH (09:00)
[2017-06-19] MEDS: SODIUM CHLORIDE 0.9% FLUSH 10 ML FLUSH IV FLUSH SCH (09:48)
[2017-06-19] MEDS: PROPRANOLOL HCL 20 MG TAB PO SCH (09:52)
[2017-06-19] MEDS ORDERED: BRIL90TA PO (11:10)
--- NOTE | 2017-06-19 11:15 | HHI.DS ---
Discharge Summary Admission Date Jun 18, 2017 at 02:01 Discharge Date: Jun 19, 2017 Admitting Diagnosis cp r/o MS (1) Unstable angina ICD Code: I20.0 - Unstable angina (2) Coronary artery disease ICD Code: I25.10 - Atherosclerotic heart disease of [place] coronary artery without angina pectoris Procedures Heart catheterization Brief History - From Admission This is an 82-year-old male that presents to ED with a complaint of developing a discomfort last night. He has history of hypertension, diabetes, and CAD. He states that 3 MIs. He had 2 stents in 1999. He currently follows Dr. Blum and saw her a few months ago. Believes his last stress test was a few years ago that was okay. States that last night while at home he developed a discomfort. Describes the discomfort as a tightness across the entire chest. Seemed to worsen as time went on. He states he was given sublingual nitroglycerin in the ED which did not change his symptoms. States that eventually the symptoms resolved within about 2 hours. He had no associated shortness of breath, nausea, or diaphoresis. States that it does not feel similar to when he needed stents in 1999. Currently denies chest discomfort. Denies recent fevers or chills. Denies recent illness. States he has been compliant with his medications. CBC/BMP: 06/19/17 0435 06/19/17 0435 Significant Findings Laboratory Tests Test 06/17/17 22:50 06/18/17 02:00 06/18/17 02:15 06/18/17 04:10 Red Blood Count 4.32 MIL/MM3 (4.50-5.90) Monocytes (%) (Auto) 8.1 % (0.0-8.0) Eosinophils (%) (Auto) 6.0 % (0.0-4.0) Eosinophils # (Auto) 0.5 TH/MM3 (0-0.4) Blood Urea Nitrogen 27 MG/DL (7-18) Creatinine 1.57 MG/DL (0.60-1.30) Random Glucose 185 MG/DL (74-106) Aspartate Amino Transf (AST/SGOT) 72 U/L (15-37) Estimat Glomerular Filtration Rate 43 ML/MIN (>89) Troponin I LESS THAN 0.02 NG/ML LESS THAN 0.02 NG/ML LESS THAN 0.02 NG/ML Urine Glucose (UA) 300 mg/dL (NEG) Urine Mucus FEW /lpf (OCC) Total Creatine Kinase 33 U/L (39-308) Test 06/19/17 04:35 Red Blood Count 4.31 MIL/MM3 (4.50-5.90) Monocytes (%) (Auto) 8.1 % (0.0-8.0) Eosinophils (%) (Auto) 5.4 % (0.0-4.0) Blood Urea Nitrogen 25 MG/DL (7-18) Creatinine 1.53 MG/DL (0.60-1.30) Random Glucose 242 MG/DL (74-106) Estimat Glomerular Filtration Rate 44 ML/MIN (>89) Hospital Course Andrew is an 82-year-old male. He was admitted secondary to unstable angina. He has a history of 2 stents placed in year 1999. Stress testing was suspicious for ischemia. He had a cardiac heart catheter here and this demonstrated no focal defect but diffuse coronary artery disease with patent stents. He was placed on Proventil and is continued on aspirin, statin, beta luna. Patient symptoms are now resolved and he's been cleared by cardiology for discharge to home today. Patient is medically stable and cleared for discharge home today. Pt Condition on Discharge: Stable Discharge Disposition: Discharge Home Discharge Time: <= 30 minutes Discharge Instructions DIET: Follow Instructions for: Heart Healthy Diet Activities you can perform: Regular-No Restrictions Follow up Referrals: Cardiology - 2 Weeks PCP Follow-up - 2 Weeks New Medications: Ticagrelor (Brilinta) 90 Mg Tab 90 MG PO BID for Blood Clot Prevention, #60 TAB Continued Medications: Aspirin (Aspirin Low Dose) 81 Mg Chew 81 MG CHEW DAILY, TAB 0 Refills Glipizide (Glipizide) 10 Mg Tab 10 MG PO BIDAC for Blood Sugar Management, #60 TAB 0 Refills Take 30 minutes before a meal Losartan-Hydrochlorothiazide (Losartan-Hydrochlorothiazide) 100-25 Mg Tab 1 TAB PO DAILY for Blood Pressure Management, #30 TAB 0 Refills Metformin (Metformin) 850 Mg Tab 850 MG PO TIDPC for Blood Sugar Management, TAB 0 Refills Propranolol (Propranolol) 10 Mg Tab 100 MG PO TID, #60 TAB 0 Refills [crestor] () [Magnesium] () 1 TAB PO DAILY Derrek Rodriguez MD Jun 19, 2017 11:15
[2017-06-19] MEDS ORDERED: ROSU40 PO (11:45)
--- NOTE | 2017-06-19 11:47 | PD.CARD.PN ---
Subjective Subjective Remarks No events overnight Doing well, no complaints Objective Medications Current Medications Medications (Trade) Dose Ordered Sig/Gómez Route Start Time Stop Time Status Last Admin (Nitrostat Sl) 0.4 mg Q5M PRN SL 06/17/17 23:30 06/17/17 23:50 (Pepcid Inj) 20 mg NOW IV PUSH 06/17/17 23:30 06/17/17 23:50 (NS Flush) 2 ml UNSCH PRN IV FLUSH 06/18/17 02:00 (NS Flush) 2 ml BID IV FLUSH 06/18/17 09:00 06/19/17 09:48 (D50w (Vial) Inj) 50 ml UNSCH PRN IV PUSH 06/18/17 07:45 (Glucagon Inj) 1 mg UNSCH PRN OTHER 06/18/17 07:45 (NovoLOG SUPPLEMENTAL SCALE) 1 ACHS SLIDING SCALE SQ 06/18/17 08:00 06/19/17 08:00 (Cozaar) 100 mg DAILY PO 06/18/17 12:45 Future Hold 06/18/17 15:24 (Hydrodiuril) 25 mg DAILY PO 06/18/17 12:45 Future Hold 06/18/17 15:24 (Inderal) 100 mg TID PO 06/18/17 18:00 06/19/17 09:52 (Tylenol) 325 mg Q4H PRN PO 06/18/17 18:45 (Percocet 5-325 Mg) 1 tab Q4H PRN PO 06/18/17 18:45 (Percocet 10-325 Mg) 1 tab Q4H PRN PO 06/18/17 18:45 (Morphine Inj) 2 mg Q30M PRN IV PUSH 06/18/17 18:45 (Brilinta) 90 mg BID PO 06/19/17 09:00 06/19/17 09:47 (Aspirin Chew) 81 mg DAILY CHEW 06/19/17 09:00 06/19/17 09:47 Vital Signs / I&O Vital Signs Date Time Temp Pulse Resp B/P (MAP) Pulse Ox O2 Delivery O2 Flow Rate FiO2 06/19/17 07:49 68 16 114/76 (89) 97 06/19/17 06:04 63 06/19/17 05:01 61 06/19/17 04:00 64 06/19/17 03:00 97.7 64 145/88 (107) 96 06/19/17 03:00 63 06/19/17 02:00 66 06/19/17 01:00 62 06/19/17 00:16 97.7 67 146/82 (103) 96 06/19/17 00:00 88 06/18/17 23:00 63 06/18/17 22:00 74 06/18/17 21:00 90 06/18/17 20:00 84 06/18/17 19:00 76 06/18/17 19:00 98.4 89 139/86 (103) 96 06/18/17 18:23 68 06/18/17 18:17 98.7 74 18 130/69 (89) 97 06/18/17 12:32 97.8 70 18 123/71 (88) 94 I/O 06/18/17 06/18/17 06/18/17 06/19/17 06/19/17 06/19/17 07:00 15:00 23:00 07:00 15:00 23:00 Intake Total 0 ml 480 ml Output Total 750 ml 950 ml Balance -750 ml -470 ml Intake Oral 0 ml 480 ml Output Urine Total 750 ml 950 ml Physical Exam GENERAL: NAD, AAOx3 SKIN: Warm and dry. HEAD: Atraumatic. Normocephalic. EYES: Pupils equal and round. No scleral icterus. No injection or drainage. ENT: No nasal bleeding or discharge. Mucous membranes pink and moist. NECK: Trachea midline. No JVD. CARDIOVASCULAR: Regular rate and rhythm. RESPIRATORY: No accessory muscle use. Clear to auscultation. Breath sounds equal bilaterally. GASTROINTESTINAL: Abdomen soft, non-tender, nondistended. Hepatic and splenic margins not palpable. MUSCULOSKELETAL: Extremities without clubbing, cyanosis, or edema. No obvious deformities. Right radial no hematoma, neurovascularly intact NEUROLOGICAL: Awake and alert. No obvious cranial nerve deficits. Motor grossly within normal limits. Five out of 5 muscle strength in the arms and legs. Normal speech. PSYCHIATRIC: Appropriate mood and affect; insight and judgment normal. Laboratory Laboratory Tests Test 06/19/17 04:35 White Blood Count 7.0 TH/MM3 Red Blood Count 4.31 MIL/MM3 Hemoglobin 14.0 GM/DL Hematocrit 39.7 % Mean Corpuscular Volume 92.2 FL Mean Corpuscular Hemoglobin 32.5 PG Mean Corpuscular Hemoglobin Concent 35.2 % Red Cell Distribution Width 12.8 % Platelet Count 259 TH/MM3 Mean Platelet Volume 8.0 FL Neutrophils (%) (Auto) 64.8 % Lymphocytes (%) (Auto) 21.0 % Monocytes (%) (Auto) 8.1 % Eosinophils (%) (Auto) 5.4 % Basophils (%) (Auto) 0.7 % Neutrophils # (Auto) 4.5 TH/MM3 Lymphocytes # (Auto) 1.5 TH/MM3 Monocytes # (Auto) 0.6 TH/MM3 Eosinophils # (Auto) 0.4 TH/MM3 Basophils # (Auto) 0.0 TH/MM3 CBC Comment DIFF FINAL Differential Comment Blood Urea Nitrogen 25 MG/DL Creatinine 1.53 MG/DL Random Glucose 242 MG/DL Calcium Level 9.6 MG/DL Sodium Level 137 MEQ/L Potassium Level 3.8 MEQ/L Chloride Level 100 MEQ/L Carbon Dioxide Level 32.0 MEQ/L Anion Gap 5 MEQ/L Estimat Glomerular Filtration Rate 44 ML/MIN Assessment and Plan Problem List: (1) HTN (hypertension) ICD Codes: I10 - Essential (primary) hypertension (2) HLD (hyperlipidemia) ICD Codes: E78.5 - Hyperlipidemia, unspecified (3) CKD (chronic kidney disease) ICD Codes: N18.9 - Chronic kidney disease, unspecified (4) Coronary artery disease ICD Codes: I25.10 - Atherosclerotic heart disease of [place] coronary artery without angina pectoris (5) Unstable angina ICD Codes: I20.0 - Unstable angina Assessment and Plan 1) PCI of LCx ASA/Brilinta Con't BB/Statin Currently on ARB, will have to watch Creatinine outpt with PCP 2) DM Hold metformin until tomorrow 3) If Brilinta too expensive will call Dr. CURRY or myself to change to Plavix 4) Cardiovascularly stable for discharge Will follow up with Dr. CURRY in 2-4 weeks Tip Waters DO Jun 19, 2017 11:47
== END 2017-06-19 13:58 | disposition home or self-care (01) ==
LOC: NEPE 22:26 → NEDA 06-18 02:01 → NEDH 06-18 06:01 → NEPGCP 06-18 11:56 → HCIS 06-18 16:11
PROVIDERS: ADMIT Hospitalist; ATTEND Hospitalist
DX: I25.110 Atherosclerotic heart disease of native coronary artery with unstable angina pectoris (principal); I21.19 ST elevation (STEMI) myocardial infarction involving other coronary artery of inferior wall; I12.9 Hypertensive chronic kidney disease with stage 1 through stage 4 chronic kidney disease, or unspecified chronic kidney disease; N18.9 Chronic kidney disease, unspecified; E11.22 Type 2 diabetes mellitus with diabetic chronic kidney disease; E78.5 Hyperlipidemia, unspecified; I25.2 Old myocardial infarction; Z87.891 Personal history of nicotine dependence; Z79.84 Long term (current) use of oral hypoglycemic drugs; Z79.82 Long term (current) use of aspirin
CPT/HCPCS: 71045; 78452; 80048; 80053; 81001; 82550; 82948; 83690; 83735; 83880; 84484; 85002; 85025; 85610; 85730; 92928; 93005; 93017; 93458; 96372; 96374; 96375; 99152; 99153; 99285; A9502; C1725; C1769; C1874; C1887; C1893; G0378; J1644; J1815; J2250; J2405; J2785; J3010; J7030

== ENCOUNTER 2017-12-03 10:55 | Observation (INO) ==
[2017-12-03 11:48] LABS: Baso # (Auto) 0.1 th/mm3 (0.0-0.2); Baso % (Auto) 0.6 % (0.0-2.0); Eos # (Auto) 1.2 th/mm3 (0.0-0.4); Eos % (Auto) 10.5 % (0.0-4.0); Hematocrit 35.7 % (39.0-51.0); Hemoglobin 12.2 gm/dL (13.0-17.0); Lymph # (Auto) 1.3 th/mm3 (1.0-4.8); Lymph % (Auto) 11.6 % (9.0-44.0); Mean Corpuscular HGB Conc 34.1 % (32.0-36.0); Mean Corpuscular Hemoglobin 30.9 pg (27.0-34.0); Mean Corpuscular Volume 90.6 fL (80.0-100.0); Mean Platelet Volume 7.4 fL (7.0-11.0); Mono # (Auto) 0.8 th/mm3 (0.0-0.9); Neut # (Auto) 8.1 th/mm3 (1.8-7.7); Neut % (Auto) 70.3 % (16.0-70.0); Platelet Count 362 th/mm3 (150-450); Red Blood Count 3.94 mil/mm3 (4.50-5.90); Red Cell Distribution Width 12.8 % (11.6-17.2); White Blood Count 11.5 th/mm3 (4.0-11.0)
--- NOTE | 2017-12-03 11:59 | ED ---
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 Patient states that symptoms came on gradually. He states that he has been feeling "just more tired than usual." He states that he can only walk about 50 feet before losing his breath. He states that his blood glucose usually runs around 110 but in the last week or so it has been around 200. He denies headaches, dizziness, chest pain, palpitations, abdominal pain, nausea, vomiting, changes in bowel habits, dysuria, leg pain or back pain. He has a 37-[id number]-iyol smoking history, quit 60 years ago. He endorses compliance with his daily medications. He saw his primary care last week and states that the lab work "all came back fine." He is followed by Dr. Blum, cardiology. He is followed by Dr. Guthrie, primary care provider. He states that he has had the pneumonia vaccine and he did receive this years flu vaccine. Related Data Home Medications Medication Instructions Recorded Confirmed aspirin [Aspirin Low Dose] 81 mg PO DAILY 12/03/17 12/03/17 clopidogrel [Plavix] 75 mg PO DAILY 12/03/17 12/03/17 glipizide 10 mg PO BID 12/03/17 12/03/17 losartan-hydrochlorothiazide 1 tab PO DAILY 12/03/17 12/03/17 metformin 850 mg PO TID 12/03/17 12/03/17 multivitamin 1 tab PO DAILY 12/03/17 12/03/17 propranolol 120 mg PO DAILY 12/03/17 12/03/17 tamsulosin 12/03/17 12/03/17 Allergies Allergy/AdvReac Type Severity Reaction Status Date / Time No Known Allergies Allergy Unverified 12/03/17 17:30 Review of Systems Except as stated in HPI: all other systems reviewed are negative [facility] Medical History Medical History CAD (coronary artery disease) (Acute) Diabetes (Acute) HBP (high blood pressure) (Acute) Family History Family History Mother Cardiac abnormality Father Emphysema lung Social History Social History Substance History: No History of Abuse Second Hand Smoke Exposure: No Smoking Status: Former smoker Tobacco Type: Cigarettes How Often Do You Have a Drink Containing Alcohol: 2 to 4 times a month Recent Travel in [facility] within the Last 8 Weeks: No Recent Out of Country Travel within the Last 8 Weeks: No Exam Narrative Exam Narrative: GENERAL: Well-nourished, well-developed, pleasant white male in no acute distress. SKIN: Focused skin assessment warm/dry. HEAD: Atraumatic. Normocephalic. EYES: Pupils equal and round. No scleral icterus. No injection or drainage. ENT: No nasal bleeding or discharge. Mucous membranes pink and moist. NECK: Trachea midline. No JVD. CARDIOVASCULAR: Regular rate and rhythm. No murmur appreciated. RESPIRATORY: No accessory muscle use. Clear to auscultation bilaterally. Breath sounds diminished in the upper lobes bilaterally. GASTROINTESTINAL: Abdomen soft, non-tender, nondistended. Hepatic and splenic margins not palpable. MUSCULOSKELETAL: No obvious deformities. No clubbing. No cyanosis. No edema. Walks with a normal gait. Homans sign negative bilaterally. NEUROLOGICAL: Awake and alert. No obvious cranial nerve deficits. Motor grossly within normal limits. Normal speech. PSYCHIATRIC: Appropriate mood and affect; insight and judgment normal. 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 Symptoms onset gradually. Patient's afebrile, BP 106/58, respiratory rate 22 and O2 sats 96% on room air on presentation. On exam there are decreased breath sounds in the upper lobes of the lungs bilaterally but exam is otherwise reassuring. EKG: Rate 79, sinus rhythm. LA interval 167, QRS 107, QTc 395 ms. Normal axis. Q waves in 2 3 aVF, similar to previous EKG of 06/29. Reviewed by Dr. Hickey. Troponin negative 1. CXR: Right upper lobe infiltrate most characteristic of pneumonia. Mild patchy opacity left lung base per radiology read. D dimer: 0.46 BNP: 24 CBC: WBC 11.5. Hemoglobin 12.2. INR 1.0. CMP: BUN 34, creatinine 2.08. Record review reveals BUN of 25 with creatinine 1.53 on 06/19/17. Blood cultures were obtained. Patient was administered 1 L normal saline, 1 g Rocephin and 500 mg azithromycin IV. I discussed the patient, workup and plan with Dr. Hickey who is in agreement with observation and admission. I discussed the results of the workup with the patient and his . They are agreeable to the plan. I spoke with who agrees to accept the patient to the medicine service. Please see medicine notes for disposition. Differential Diagnosis Differential Diagnosis: PNA versus PE versus anemia versus metabolic derangement versus other Medical Records Medical records reviewed: Yes I reviewed the patient's medical records. Heart cath on 06/18/17 reveals diffuse CAD without focal deficit and patent stents. Lab Data Result diagrams: 12/04/17 07:10 12/04/17 16:07 Lab Results 12/03/17 12/03/17 12/03/17 Range/Units 11:19 11:19 11:19 WBC 11.5 H (4.0-11.0) th/mm3 RBC 3.94 L (4.50-5.90) mil/mm3 Hgb 12.2 L (13.0-17.0) gm/dL Hct 35.7 L (39.0-51.0) % MCV 90.6 (80.0-100.0) fL MCH 30.9 (27.0-34.0) pg MCHC 34.1 (32.0-36.0) % RDW 12.8 (11.6-17.2) % Plt Count 362 (150-450) th/mm3 MPV 7.4 (7.0-11.0) fL Neut % (Auto) 70.3 H (16.0-70.0) % Lymph % (Auto) 11.6 (9.0-44.0) % Bent % (Auto) 7.0 (0.0-8.0) % Eos % (Auto) 10.5 H (0.0-4.0) % Baso % (Auto) 0.6 (0.0-2.0) % Neut # (Auto) 8.1 H (1.8-7.7) th/mm3 Lymph # (Auto) 1.3 (1.0-4.8) th/mm3 Bent # (Auto) 0.8 (0.0-0.9) th/mm3 Eos # (Auto) 1.2 H (0.0-0.4) th/mm3 Baso # (Auto) 0.1 (0.0-0.2) th/mm3 WBC Differential . Differential Comment Auto diff final D-Dimer Quant (PE/DVT) (0.00-0.50) mg/L FEU Sodium 135 L (136-145) meq/L Potassium 4.3 (3.5-5.1) meq/L Chloride 100 (98-107) meq/L Carbon Dioxide 26.5 (21.0-32.0) meq/L Anion Gap 9 (5-15) meq/L BUN 34 H (7-18) mg/dL Creatinine 2.08 H (0.60-1.30) mg/dL Estimated GFR 31 L (>89) mL/min POC Glucose (68-110) mg/dl Random Glucose 257 H (74-106) mg/dL Hemoglobin A1c (4.3-6.0) % Calcium 9.6 (8.5-10.1) mg/dL Total Bilirubin 0.5 (0.2-1.0) mg/dL AST 16 (15-37) U/L ALT 28 (12-78) U/L Alkaline Phosphatase 102 (45-117) U/L Troponin I Less than 0.02 L (0.02-0.05) ng/mL B-Natriuretic Peptide 24 (0-100) pg/mL Total Protein 8.4 H (6.4-8.2) g/dL Albumin 3.1 L (3.4-5.0) g/dL 12/03/17 12/03/17 12/03/17 Range/Units 12:30 20:25 21:15 WBC (4.0-11.0) th/mm3 RBC (4.50-5.90) mil/mm3 Hgb (13.0-17.0) gm/dL Hct (39.0-51.0) % MCV (80.0-100.0) fL MCH (27.0-34.0) pg MCHC (32.0-36.0) % RDW (11.6-17.2) % Plt Count (150-450) th/mm3 MPV (7.0-11.0) fL Neut % (Auto) (16.0-70.0) % Lymph % (Auto) (9.0-44.0) % Bent % (Auto) (0.0-8.0) % Eos % (Auto) (0.0-4.0) % Baso % (Auto) (0.0-2.0) % Neut # (Auto) (1.8-7.7) th/mm3 Lymph # (Auto) (1.0-4.8) th/mm3 Bent # (Auto) (0.0-0.9) th/mm3 Eos # (Auto) (0.0-0.4) th/mm3 Baso # (Auto) (0.0-0.2) th/mm3 WBC Differential Differential Comment D-Dimer Quant (PE/DVT) 0.46 (0.00-0.50) mg/L FEU Sodium 136 (136-145) meq/L Potassium 4.4 (3.5-5.1) meq/L Chloride 101 (98-107) meq/L Carbon Dioxide 27.1 (21.0-32.0) meq/L Anion Gap 8 (5-15) meq/L BUN 31 H (7-18) mg/dL Creatinine 1.80 H (0.60-1.30) mg/dL Estimated GFR 36 L (>89) mL/min POC Glucose 289 H (68-110) mg/dl Random Glucose 351 H (74-106) mg/dL Hemoglobin A1c (4.3-6.0) % Calcium 8.8 D (8.5-10.1) mg/dL Total Bilirubin (0.2-1.0) mg/dL AST (15-37) U/L ALT (12-78) U/L Alkaline Phosphatase (45-117) U/L Troponin I (0.02-0.05) ng/mL B-Natriuretic Peptide (0-100) pg/mL Total Protein (6.4-8.2) g/dL Albumin (3.4-5.0) g/dL 12/04/17 12/04/17 12/04/17 Range/Units 03:14 07:10 07:10 WBC 11.9 H (4.0-11.0) th/mm3 RBC 3.84 L (4.50-5.90) mil/mm3 Hgb 11.7 L (13.0-17.0) gm/dL Hct 34.3 L (39.0-51.0) % MCV 89.4 (80.0-100.0) fL MCH 30.5 (27.0-34.0) pg MCHC 34.1 (32.0-36.0) % RDW 12.5 (11.6-17.2) % Plt Count 348 (150-450) th/mm3 MPV 7.3 (7.0-11.0) fL Neut % (Auto) 65.8 (16.0-70.0) % Lymph % (Auto) 16.0 (9.0-44.0) % Bent % (Auto) 8.4 H (0.0-8.0) % Eos % (Auto) 9.3 H (0.0-4.0) % Baso % (Auto) 0.5 (0.0-2.0) % Neut # (Auto) 7.8 H (1.8-7.7) th/mm3 Lymph # (Auto) 1.9 (1.0-4.8) th/mm3 Bent # (Auto) 1.0 H (0.0-0.9) th/mm3 Eos # (Auto) 1.1 H (0.0-0.4) th/mm3 Baso # (Auto) 0.1 (0.0-0.2) th/mm3 WBC Differential . Differential Comment Auto diff final D-Dimer Quant (PE/DVT) (0.00-0.50) mg/L FEU Sodium 137 (136-145) meq/L Potassium 4.1 (3.5-5.1) meq/L Chloride 101 (98-107) meq/L Carbon Dioxide 27.6 (21.0-32.0) meq/L Anion Gap 8 (5-15) meq/L BUN 23 H (7-18) mg/dL Creatinine 1.55 H (0.60-1.30) mg/dL Estimated GFR 43 L (>89) mL/min POC Glucose 183 H (68-110) mg/dl Random Glucose 168 H D (74-106) mg/dL Hemoglobin A1c (4.3-6.0) % Calcium 9.1 (8.5-10.1) mg/dL Total Bilirubin 0.4 (0.2-1.0) mg/dL AST 18 (15-37) U/L ALT 31 (12-78) U/L Alkaline Phosphatase 95 (45-117) U/L Troponin I (0.02-0.05) ng/mL B-Natriuretic Peptide (0-100) pg/mL Total Protein 8.0 (6.4-8.2) g/dL Albumin 2.8 L (3.4-5.0) g/dL 12/04/17 12/04/17 12/04/17 Range/Units 08:45 13:02 16:07 WBC (4.0-11.0) th/mm3 RBC (4.50-5.90) mil/mm3 Hgb (13.0-17.0) gm/dL Hct (39.0-51.0) % MCV (80.0-100.0) fL MCH (27.0-34.0) pg MCHC (32.0-36.0) % RDW (11.6-17.2) % Plt Count (150-450) th/mm3 MPV (7.0-11.0) fL Neut % (Auto) (16.0-70.0) % Lymph % (Auto) (9.0-44.0) % Bent % (Auto) (0.0-8.0) % Eos % (Auto) (0.0-4.0) % Baso % (Auto) (0.0-2.0) % Neut # (Auto) (1.8-7.7) th/mm3 Lymph # (Auto) (1.0-4.8) th/mm3 Bent # (Auto) (0.0-0.9) th/mm3 Eos # (Auto) (0.0-0.4) th/mm3 Baso # (Auto) (0.0-0.2) th/mm3 WBC Differential Differential Comment D-Dimer Quant (PE/DVT) (0.00-0.50) mg/L FEU Sodium 139 (136-145) meq/L Potassium 4.3 (3.5-5.1) meq/L Chloride 104 (98-107) meq/L Carbon Dioxide 28.1 (21.0-32.0) meq/L Anion Gap 7 (5-15) meq/L BUN 24 H (7-18) mg/dL Creatinine 1.63 H (0.60-1.30) mg/dL Estimated GFR 41 L (>89) mL/min POC Glucose 249 H 329 H (68-110) mg/dl Random Glucose 243 H (74-106) mg/dL Hemoglobin A1c (4.3-6.0) % Calcium 8.7 (8.5-10.1) mg/dL Total Bilirubin (0.2-1.0) mg/dL AST (15-37) U/L ALT (12-78) U/L Alkaline Phosphatase (45-117) U/L Troponin I (0.02-0.05) ng/mL B-Natriuretic Peptide (0-100) pg/mL Total Protein (6.4-8.2) g/dL Albumin (3.4-5.0) g/dL 12/04/17 12/04/17 Range/Units 16:07 18:21 WBC (4.0-11.0) th/mm3 RBC (4.50-5.90) mil/mm3 Hgb (13.0-17.0) gm/dL Hct (39.0-51.0) % MCV (80.0-100.0) fL MCH (27.0-34.0) pg MCHC (32.0-36.0) % RDW (11.6-17.2) % Plt Count (150-450) th/mm3 MPV (7.0-11.0) fL Neut % (Auto) (16.0-70.0) % Lymph % (Auto) (9.0-44.0) % Bent % (Auto) (0.0-8.0) % Eos % (Auto) (0.0-4.0) % Baso % (Auto) (0.0-2.0) % Neut # (Auto) (1.8-7.7) th/mm3 Lymph # (Auto) (1.0-4.8) th/mm3 Bent # (Auto) (0.0-0.9) th/mm3 Eos # (Auto) (0.0-0.4) th/mm3 Baso # (Auto) (0.0-0.2) th/mm3 WBC Differential Differential Comment D-Dimer Quant (PE/DVT) (0.00-0.50) mg/L FEU Sodium (136-145) meq/L Potassium (3.5-5.1) meq/L Chloride (98-107) meq/L Carbon Dioxide (21.0-32.0) meq/L Anion Gap (5-15) meq/L BUN (7-18) mg/dL Creatinine (0.60-1.30) mg/dL Estimated GFR (>89) mL/min POC Glucose 183 H (68-110) mg/dl Random Glucose (74-106) mg/dL Hemoglobin A1c 8.9 H (4.3-6.0) % Calcium (8.5-10.1) mg/dL Total Bilirubin (0.2-1.0) mg/dL AST (15-37) U/L ALT (12-78) U/L Alkaline Phosphatase (45-117) U/L Troponin I (0.02-0.05) ng/mL B-Natriuretic Peptide (0-100) pg/mL Total Protein (6.4-8.2) g/dL Albumin (3.4-5.0) g/dL Imaging Data Radiologist's impression: Chest X-Ray 12/03/17 11:15 CONCLUSION: 1. New infiltrate in the right upper lobe most characteristic of pneumonia. 2. Mild patchy opacity at the left lung base. Discharge Plan Discharge Disposition Patient Disposition: 30 Still Patient Discharge Details Diagnosis: Community acquired pneumonia Physicians Team ED Provider: Korina Hickey ED Midlevel Provider: Silvina Garcia Primary Care Provider: Paramjit Guthrie Attending Provider: Cynthia Townsend ED Status: Left Department Discharge Information Discharge Date/Time: 12/03/17 17:05
--- NOTE | 2017-12-03 12:10 | XR ---
EXAM DATE: 12/03/2017 12:05 PM EDT AGE/SEX: 82 years / Male INDICATIONS: . Shortness of breath. CLINICAL DATA: This is the patient's initial encounter. Patient reports that signs and symptoms have been present for 1 month and indicates a pain score of 0/10. MEDICAL/SURGICAL HISTORY: Hypertension. Collapse of left lung. . Stents. COMPARISON: [facility] – [place], CHEST SINGLE AP, 06/17/2017. . FINDINGS: PA and lateral views the chest were obtained and demonstrate new patchy infiltrate in the right upper lobe. There is mild patchy opacity in the left lung base. There is no effusion. The heart size remai ns within normal limits. CONCLUSION: 1. New infiltrate in the right upper lobe most characteristic of pneumonia. 2. Mild patchy opacity at the left lung base. Electronically signed by: Jose M Ware MD 12/03/2017 12:09 PM EDT
[2017-12-03 12:21] LABS: Anion Gap 9 meq/L (5-15); Blood Urea Nitrogen 34 mg/dL (7-18); Carbon Dioxide 26.5 meq/L (21.0-32.0); Chloride 100 meq/L (98-107); Potassium 4.3 meq/L (3.5-5.1); Sodium 135 meq/L (136-145)
[2017-12-03 12:22] LABS: Alanine Aminotransferase 28 U/L (12-78); Albumin 3.1 g/dL (3.4-5.0); Alkaline Phosphatase 102 U/L (45-117); Aspartate Aminotransferase 16 U/L (15-37); Calcium 9.6 mg/dL (8.5-10.1); Glomerular Filtration Rate 31 mL/min (>89); Glucose,Random 257 mg/dL (74-106); Total Protein 8.4 g/dL (6.4-8.2)
[2017-12-03] MEDS ORDERED: Azithromycin Inj 500 MG in Sodium Chlor 0.9% Inj 250 ML IV.SIG ONE (12:23)
[2017-12-03] MEDS ORDERED: Sod Chloride 0.9% Inj 1,000 ML IV.SIG ONE (12:23)
[2017-12-03] MEDS ORDERED: Acetaminophen 325 MG Tablet PO PRN (14:39)
[2017-12-03] MEDS ORDERED: Dextrose 50% in Water 50 ML Vial IV.PUSH PRN (14:45)
[2017-12-03] MEDS: Sod Chloride 0.9% Inj 1,000 ML IV.CONT SCH ×2 (15:00→23:28)
[2017-12-03] MEDS: Insulin NovoLOG Aspart Correctional Sugar Inj SQ SCH ×2 (17:08→20:47)
--- NOTE | 2017-12-03 19:09 | ECG ---
Date Performed: 12/03/2017 Time Performed: 11:34:20 PTAGE: 82 years EKG: Sinus rhythm INFERIOR MYOCARDIAL INFARCTION ABNORMAL ECG Since the PREVIOUS TRACING , no significant change noted DOCTOR: George Erwin Interpretating Date/Time 12/03/2017 19:08:15
--- NOTE | 2017-12-03 20:31 | P.HPIM ---
History of Present Illness Service: [facility] Primary Care Physician: Paramjit Guthrie MD Chief Complaint: shortness of breath, chills History of Present Illness: Mr. Morales 82 yo with PMH CAD (prior stenting), HTN, DM, HTN who presents to [facility] with shortness of breath and chills for the past 1.5 weeks. Patient states that he started feeling chills and sweating last week when driving back from visiting his son. Over the past week, patient started feeling more short of breath. Due to these symptoms, patient obtained labs with his PCP several days prior which were reassuring. Due to persistent and worsening shortness of breath and chills, he decided to seek care. Patient states that his cough is nonproductive. He elinor not mention specific sick contacts. He reports prior "collapsed lung" years prior but only a distant smoking history when he quit at age ~21. Patient has not had recent pneumonia; he reports receiving typical vaccines for his age. Regarding patient's cardiac history, he reports prior stenting but no recent chest pain. He does not get leg swelling. Patient reports taking ASA, Plavix, Propanolol, and ARB/HCTZ, but not a statin. Patient also reports difficulty with urinating unless he takes Tamsulosin ( supplemented history). Patient does not report headache, visual changes, abnormal bowel movements, urinary changes. Patient has still had normal appetite until he felt poorly. - Diagnosis (1) CAD (coronary artery disease) (2) T2DM (type 2 diabetes mellitus) (3) Community acquired pneumonia Review of Systems All other systems reviewed negative except as stated in HPI Constitutional: Reports chills, Reports fatigue, Reports malaise Cardiovascular: Denies chest pain, Denies chest pain with activity Respiratory: Reports shortness of breath, Reports wheezing Musculoskeletal: Reports body aches, Denies abnormal walking Neurologic: Denies frequent falls, Denies headache(s) Hematologic/Lymphatic: Denies easy bleeding, Denies easy bruising PMFSH - History History Provided By: Patient - Medical History Medical History: Medical History (Last Updated 12/03/17 @ 17:31 by Yu Joseph RN) CAD (coronary artery disease) Diabetes HBP (high blood pressure) Myocardial infarction - Surgical History Surgical History: Surgical History (Last Reviewed 12/03/17 @ 17:31 by Yu Joseph RN) History of heart artery stent - Family History Family History: Family History (Last Updated 12/03/17 @ 20:39 by Peter Grove MD) Mother Cardiac abnormality Father Emphysema lung - Tobacco History Second Hand Smoke Exposure: No Tobacco Use In Past 30 Days: No Smoking Status: Former smoker Tobacco Type: Cigarettes - Alcohol History How Often Do You Have a Drink Containing Alcohol: 2 to 4 times a month - Substance Use History Substance History: No History of Abuse - Travel History Recent Travel in the [place] Within the Last 8 Weeks: No Recent Travel Out of the Country Within the Last 8 Weeks: No - Immunization History Tetanus Immunization: >5 Years Hx Influenza Vaccine This Season: Yes Medications and Allergies Active Medications: Active Medications Acetaminophen (Tylenol) 650 mg PO Q4H PRN PRN Reason: Temp > 100.4 Aspirin (Ecotrin) 81 mg PO DAILY [facility] Clopidogrel Bisulfate (Plavix) 75 mg PO DAILY [facility] Dextrose (D50w Vial) 50 ml IV.PUSH UNSCH PRN PRN Reason: PER HYPOGLYCEMIA PROTOCOL Enoxaparin Sodium (Lovenox Inj) 30 mg SQ Q24H [facility] Glipizide (Glucotrol) 10 mg PO BID [facility] Glucagon (Glucagon Inj) 1 mg OTHER PRN PRN PRN Reason: for Hypoglycemia Protocol Hydrochlorothiazide (Hydrodiuril) 25 mg PO DAILY [facility] Sodium Chloride (Ns Inj) 1,000 mls @ 125 mls/hr IV.CONT .Q8H ANETA Last Admin: 12/03/17 15:00 Dose: 125 mls/hr Azithromycin 250 mg/ Sodium (Chloride) 250 mls @ 250 mls/hr IV.SIG Q24H [facility] Ceftriaxone Sodium 1,000 mg/ (Sodium Chloride) 100 mls @ 200 mls/hr IV.SIG Q24H [facility] Insulin Aspart (Novolog Insulin Correctional Sugar Inj) 0 unit SQ ACHS AND 3AM ANETA; Protocol Last Admin: 12/03/17 17:08 Dose: 1 unit Losartan Potassium (Cozaar) 100 mg PO DAILY [facility] Multivitamins (Theragran) 1 tab PO DAILY [facility] Propranolol HCl (Inderal La) 120 mg PO DAILY [facility] Senna/Docusate Sodium (Grace-Colace) 1 tab PO BID [facility] Tamsulosin HCl (Flomax) 0.4 mg PO DAILY [facility] Allergies Allergy/AdvReac Type Severity Reaction Status Date / Time No Known Allergies Allergy Unverified 12/03/17 17:30 Home Medications Medication Instructions Recorded Confirmed Type aspirin [Aspirin Low Dose] 81 mg PO DAILY 12/03/17 12/03/17 History clopidogrel [Plavix] 75 mg PO DAILY 12/03/17 12/03/17 History glipizide 10 mg PO BID 12/03/17 12/03/17 History losartan-hydrochlorothiazide 1 tab PO DAILY 12/03/17 12/03/17 History metformin 850 mg PO TID 12/03/17 12/03/17 History multivitamin 1 tab PO DAILY 12/03/17 12/03/17 History propranolol 120 mg PO DAILY 12/03/17 12/03/17 History tamsulosin 12/03/17 12/03/17 History Exam Vital signs: Vital Signs 12/03/17 11:03 12/03/17 11:14 12/03/17 11:15 Temperature 97.6 F 97.8 F Pulse Rate 85 77 79 Respiratory Rate 22 22 Blood Pressure 121/58 L 106/58 L Pulse Oximetry 96 96 97 12/03/17 13:40 12/03/17 14:33 12/03/17 14:37 Temperature 98.0 F 97.9 F Pulse Rate 70 74 Respiratory Rate 20 18 Blood Pressure 111/60 118/60 Pulse Oximetry 98 98 97 12/03/17 16:54 12/03/17 18:11 12/03/17 19:46 Temperature 97.8 F Pulse Rate 76 77 85 Respiratory Rate 20 18 Blood Pressure 128/80 140/67 Pulse Oximetry 98 97 Intake & Output 12/03/17 12/03/17 12/04/17 06:59 18:59 06:59 Intake Total 1350 / 1350 Output Total 900 / 900 Balance 450 / 450 Weight 87.997 kg Intake: IV 1350 / 1350 Azithromycin Inj 500 MG In NS 250 / 250 Inj 250 ML @ 250 mls/hr IV.SIG ONCE ONE Rx#:[id number] NS Inj 1,000 ML @ Wide Open IV. 1000 / 1000 SIG BOLUS ONE Rx#:[id number] Rocephin Inj 1,000 MG In NS Inj 100 / 100 100 ML @ 200 mls/hr IV.SIG ONCE ONE Rx#:[id number] Output: Urine 900 / 900 Other: # Voids 1 Date of Last Bowel Movement 12/03/17 Narrative: General: No acute distress Skin: No visible lesions Neck: no appreciated thyromegaly HEENT: EOMI; PERRLA. Throat clear; normal oral mucosa. Nose w/o drainage Lymph: no appreciated cervical or supraclavicular lymphadenopathy Pulmonary: CTAB but decreased breath sounds; no obvious asymmetry. Normal rate CV: Regular rate and rhythm. Normal peripheral perfusion Abdomen: Soft, nontender, nondistended MSK: Grossly normal motor function and range of motion. Patient seen ambulating ; seems generally stable without antalgia Neuro: Grossly normal CN. grossly normal peripheral motor/sensory function Results - Labs CBC & Chem 7: 12/03/17 11:19 12/03/17 11:19 Labs: Short CBC 12/03/17 Range/Units 11:19 WBC 11.5 H (4.0-11.0) th/mm3 Hgb 12.2 L (13.0-17.0) gm/dL Hct 35.7 L (39.0-51.0) % Plt Count 362 (150-450) th/mm3 BMP 12/03/17 11:19 Sodium 135 L Potassium 4.3 Chloride 100 Carbon Dioxide 26.5 BUN 34 H Creatinine 2.08 H Calcium 9.6 Cardiac Enzymes 12/03/17 Range/Units 11:19 Troponin I Less than 0.02 L (0.02-0.05) ng/mL Liver Function 12/03/17 Range/Units 11:19 Total Bilirubin 0.5 (0.2-1.0) mg/dL AST 16 (15-37) U/L ALT 28 (12-78) U/L Alkaline Phosphatase 102 (45-117) U/L Albumin 3.1 L (3.4-5.0) g/dL - Imaging Impressions Chest X-Ray 12/03/17 11:15 CONCLUSION: 1. New infiltrate in the right upper lobe most characteristic of pneumonia. 2. Mild patchy opacity at the left lung base. Caprini VTE Risk Assessment Caprini VTE Risk Assessment: Moderate/High Risk (score >= 2) Caprini Risk Assessment Model: Point Value = 1 Point Value = 2 Point Value = 3 Point Value = 5 Age 41-60 Minor surgery BMI > 25 kg/m2 Swollen legs Varicose veins or History of unexplained or recurrent spontaneous Oral contraceptives or hormone replacement Sepsis (< 1 month) Serious lung disease, including pneumonia (< 1 month) Abnormal pulmonary function Acute myocardial infarction Congestive heart failure (< 1 month) History of inflammatory bowel disease Medical patient at bed rest Age 61-74 Arthroscopic surgery Major open surgery (> 45 min) Laparoscopic surgery (> 45 min) Malignancy Confined to bed (> 72 hours) Immobilizing plaster cast Central venous access Age >= 75 History of VTE Family history of VTE Factor V Leiden Prothrombin [id number] Lupus anticoagulant Anticardiolipin antibodies Elevated serum homocysteine Heparin-induced thrombocytopenia Other congenital or acquired thrombophilia Stroke (< 1 month) Elective arthroplasty Hip, pelvis, or leg fracture Acute spinal cord injury (< 1 month) Prophylaxis Regimen: Total Risk Factor Score Risk Level Prophylaxis Regimen 0-1 Low Early ambulation 2 Moderate Order ONE of the following: *Sequential Compression Device (SCD) *Heparin 5000 units SQ BID 3-4 Higher Order ONE of the following medications: *Heparin 5000 units SQ TID *Enoxaparin/Lovenox 40 mg SQ daily (WT < 150 kg, CrCl > 30 mL/min) *Enoxaparin/Lovenox 30 mg SQ daily (WT < 150 kg, CrCl > 10-29 mL/min) *Enoxaparin/Lovenox 30 mg SQ BID (WT < 150 kg, CrCl > 30 mL/min) AND/OR *Sequential Compression Device (SCD) 5 or more Highest Order ONE of the following medications: *Heparin 5000 units SQ TID (Preferred with Epidurals) *Enoxaparin/Lovenox 40 mg SQ daily (WT < 150 kg, CrCl > 30 mL/min) *Enoxaparin/Lovenox 30 mg SQ daily (WT < 150 kg, CrCl > 10-29 mL/min) *Enoxaparin/Lovenox 30 mg SQ BID (WT < 150 kg, CrCl > 30 mL/min) AND *Sequential Compression Device (SCD) Assessment and Plan - Assessment (1) CAD (coronary artery disease) Code(s): I25.10 - Atherosclerotic heart disease of [place] coronary artery without angina pectoris Status: Acute (2) T2DM (type 2 diabetes mellitus) Code(s): E11.9 - Type 2 diabetes mellitus without complications Status: Acute (3) Community acquired pneumonia Code(s): J18.9 - Pneumonia, unspecified organism Status: Acute - Plan Mr. Morales is a 82 yo M with PMH CAD, HTN, T2DM who presents with symptoms suggestive of pneumonia: Pneumonia Impression: Shortness of breath, cough, chills in association with lung infiltrate. Prior collapsed young and very distant tobacco abuse; likely noncontributory to baseline pulmonary status. report of Albuterol usage previously in EMR CXR on admission- new infiltrate in right upper lobe most characteristic of pneumonia. Mild patchy opacity at left lung base Labs: WBC 11.5 (70% neutrophils). D-dimer 0.46. Troponin 0.02. -Continue to monitor saturations and give O2 as needed -Sputum culture ordered -Urine legionella and strep pneumo antigens ordered --Will continue empiric antibiotics -Rocephin and Azithromycin -Will give incentive spirometry -Will give PRN Duonebs since prior Albuterol use in EMR Cardiac CAD Impression: No symptoms at this time. Per EMR, cath in 06/2017 with diffuse coronary disease with patent stents; also prior stenting in 1999. No prior echo available in [facility] -Continue home Brilinta 90mg BID -Aspirin 81mg, Losartan/HCTZ -Was on statin at home; will clarify -Will monitor on telemetry HTN Impression: Normal BP/hypotensive on admission -Will monitor and continue home medications CKD w/ JAKY Impression: Cr 2.08; baseline ~1.5 per EMR 06/2017. -Will give IV NS at 125ml/hr and watch for signs of fluid overload -Will repeat BMP BPH Impression: reported difficulty voiding until taking Tamsulosin -Restarted Tamsulosin Endocrine Impression: Glucose 257 on admission. On home Metformin -Will give SS Novolog while inpatient -Continue home Glipizide 10mg BID PT Consulted DVT PPX -Will give Enoxaparin 30mg daily Code Status: Full code H&P: Quality - VTE Deep Vein Thrombosis/Pulmonary Embolism Present on Admission: No (3) Community acquired pneumonia Qualifiers: Laterality: right Lung location: upper lobe of lung Qualified Code(s): J18.1 - Lobar pneumonia, unspecified organism
[2017-12-03] MEDS: Enoxaparin Inj 30 MG/0.3 ML Syringe SQ SCH (20:46)
[2017-12-03] MEDS: Senna/Docusate Sodium 8.6/50 MG Tablet PO SCH (20:48)
[2017-12-03] MEDS: glipiZIDE 10 MG Tablet PO SCH (21:32)
[2017-12-03 22:06] LABS: Calcium 8.8 mg/dL (8.5-10.1); Carbon Dioxide 27.1 meq/L (21.0-32.0); Potassium 4.4 meq/L (3.5-5.1)
[2017-12-04] MEDS: Insulin NovoLOG Aspart Correctional Sugar Inj SQ SCH ×5 (03:23→22:41)
[2017-12-04 07:39] LABS: Baso # (Auto) 0.1 th/mm3 (0.0-0.2); Baso % (Auto) 0.5 % (0.0-2.0); Eos # (Auto) 1.1 th/mm3 (0.0-0.4); Eos % (Auto) 9.3 % (0.0-4.0); Hematocrit 34.3 % (39.0-51.0); Hemoglobin 11.7 gm/dL (13.0-17.0); Lymph # (Auto) 1.9 th/mm3 (1.0-4.8); Mean Corpuscular HGB Conc 34.1 % (32.0-36.0); Mean Corpuscular Hemoglobin 30.5 pg (27.0-34.0); Mean Corpuscular Volume 89.4 fL (80.0-100.0); Mean Platelet Volume 7.3 fL (7.0-11.0); Mono % (Auto) 8.4 % (0.0-8.0); Neut # (Auto) 7.8 th/mm3 (1.8-7.7); Neut % (Auto) 65.8 % (16.0-70.0); Platelet Count 348 th/mm3 (150-450); Red Blood Count 3.84 mil/mm3 (4.50-5.90); Red Cell Distribution Width 12.5 % (11.6-17.2); White Blood Count 11.9 th/mm3 (4.0-11.0)
[2017-12-04 07:58] LABS: Alanine Aminotransferase 31 U/L (12-78); Albumin 2.8 g/dL (3.4-5.0); Anion Gap 8 meq/L (5-15); Aspartate Aminotransferase 18 U/L (15-37); Blood Urea Nitrogen 23 mg/dL (7-18); Calcium 9.1 mg/dL (8.5-10.1); Carbon Dioxide 27.6 meq/L (21.0-32.0); Chloride 101 meq/L (98-107); Glomerular Filtration Rate 43 mL/min (>89); Glucose,Random 168 mg/dL (74-106); Potassium 4.1 meq/L (3.5-5.1); Sodium 137 meq/L (136-145)
[2017-12-04 08:09] LABS: Alkaline Phosphatase 95 U/L (45-117)
[2017-12-04] MEDS: hydroCHLOROthiazide 25 MG Tablet PO SCH (08:49)
[2017-12-04] MEDS: glipiZIDE 10 MG Tablet PO SCH ×2 (08:49→21:12)
[2017-12-04] MEDS: Senna/Docusate Sodium 8.6/50 MG Tablet PO SCH ×2 (08:50→20:57)
[2017-12-04] MEDS ORDERED: Non-Formulary Drug (Losartan-Hydrochlorothiazide [Losartan-Hydrochlorothiazide] 1 TAB) PO SCH (09:00)
[2017-12-04] MEDS: Sod Chloride 0.9% Inj 1,000 ML IV.CONT SCH ×3 (09:23→21:14)
--- NOTE | 2017-12-04 09:58 | P.PN ---
Subjective Interval history: Follow-up visit community-acquired pneumonia. Patient seen and examined today. at the bedside. Reports she is doing fairly well. States that he has no shortness of breath. Able to tolerate sitting up and eating breakfast. Denies pain and discomfort. Denies SOB/ dyspnea. Denies chest pain, palpitations, headaches, dizziness. Denies fevers, n/v/d. Denies dysuria. Physical Exam Vital signs: Vital Signs 12/03/17 11:03 12/03/17 11:14 12/03/17 11:15 Temperature 97.6 F 97.8 F Pulse Rate 85 77 79 Respiratory Rate 22 22 Blood Pressure 121/58 L 106/58 L Pulse Oximetry 96 96 97 12/03/17 13:40 12/03/17 14:33 12/03/17 14:37 Temperature 98.0 F 97.9 F Pulse Rate 70 74 Respiratory Rate 20 18 Blood Pressure 111/60 118/60 Pulse Oximetry 98 98 97 12/03/17 16:54 12/03/17 18:11 12/03/17 19:46 Temperature 97.8 F Pulse Rate 76 77 85 Respiratory Rate 20 18 Blood Pressure 128/80 140/67 Pulse Oximetry 98 97 12/03/17 23:35 12/03/17 23:41 12/04/17 03:40 Temperature 99.2 F 99.6 F Pulse Rate 81 60 Respiratory Rate 18 18 Blood Pressure 132/71 127/66 Pulse Oximetry 94 L 94 L 95 12/04/17 08:00 Temperature 98.1 F Pulse Rate 81 Respiratory Rate 18 Blood Pressure 135/63 Pulse Oximetry 94 L Intake & Output 12/03/17 12/04/17 12/04/17 18:59 06:59 18:59 Intake Total 1350 / 1350 1120 / 1120 1000 / 1000 Output Total 900 / 900 500 / 500 Balance 450 / 450 620 / 620 1000 / 1000 Weight 87.997 kg 87.997 kg Intake: IV 1350 / 1350 1000 / 1000 1000 / 1000 NS Inj 1,000 ML @ 125 mls/hr IV 1000 / 1000 1000 / 1000 .CONT .Q8H ANETA Rx#:[id number] Azithromycin Inj 500 MG In NS 250 / 250 Inj 250 ML @ 250 mls/hr IV.SIG ONCE ONE Rx#:[id number] NS Inj 1,000 ML @ Wide Open IV. 1000 / 1000 SIG BOLUS ONE Rx#:[id number] Rocephin Inj 1,000 MG In NS Inj 100 / 100 100 ML @ 200 mls/hr IV.SIG ONCE ONE Rx#:[id number] Oral 120 / 120 Output: Urine 900 / 900 500 / 500 Other: # Voids 1 Date of Last Bowel Movement 12/03/17 Narrative: GENERAL: This is a well-nourished, well-developed patient, in no apparent distress. SKIN: Warm and dry HEENT: Normocephalic. Pupils equal round and reactive. Nose without bleeding. Airway patent. NECK: Trachea midline. CARDIOVASCULAR: Regular rate and rhythm without murmurs, gallops, or rubs. RESPIRATORY: Decreased breath sounds. No wheezes, rales, or rhonchi. GASTROINTESTINAL: Abdomen soft, non-tender, nondistended. Bowel Sounds normoactive x4. MUSCULOSKELETAL: Extremities without clubbing, cyanosis, or edema. NEUROLOGICAL: Awake and alert. Oriented to place, person. No focal neuro deficit. Moves all extremities. Normal speech. Results - Labs CBC & Chem 7: 12/04/17 07:10 12/04/17 07:10 Laboratory Results - last 24 hr 12/03/17 12/03/17 12/03/17 11:19 11:19 11:19 WBC 11.5 H RBC 3.94 L Hgb 12.2 L Hct 35.7 L MCV 90.6 MCH 30.9 MCHC 34.1 RDW 12.8 Plt Count 362 MPV 7.4 Neut % (Auto) 70.3 H Lymph % (Auto) 11.6 Nance % (Auto) 7.0 Eos % (Auto) 10.5 H Baso % (Auto) 0.6 Neut # (Auto) 8.1 H Lymph # (Auto) 1.3 Nance # (Auto) 0.8 Eos # (Auto) 1.2 H Baso # (Auto) 0.1 WBC Differential . Differential Comment Auto diff final D-Dimer Quant (PE/DVT) Sodium 135 L Potassium 4.3 Chloride 100 Carbon Dioxide 26.5 Anion Gap 9 BUN 34 H Creatinine 2.08 H Estimated GFR 31 L POC Glucose Random Glucose 257 H Calcium 9.6 Total Bilirubin 0.5 AST 16 ALT 28 Alkaline Phosphatase 102 Troponin I Less than 0.02 L B-Natriuretic Peptide 24 Total Protein 8.4 H Albumin 3.1 L 07/25/18 07/25/18 07/25/18 12:30 20:25 21:15 WBC RBC Hgb Hct MCV MCH MCHC RDW Plt Count MPV Neut % (Auto) Lymph % (Auto) Nance % (Auto) Eos % (Auto) Baso % (Auto) Neut # (Auto) Lymph # (Auto) Nance # (Auto) Eos # (Auto) Baso # (Auto) WBC Differential Differential Comment D-Dimer Quant (PE/DVT) 0.46 Sodium 136 Potassium 4.4 Chloride 101 Carbon Dioxide 27.1 Anion Gap 8 BUN 31 H Creatinine 1.80 H Estimated GFR 36 L POC Glucose 289 H Random Glucose 351 H Calcium 8.8 D Total Bilirubin AST ALT Alkaline Phosphatase Troponin I B-Natriuretic Peptide Total Protein Albumin 12/04/17 12/04/17 12/04/17 03:14 07:10 07:10 WBC 11.9 H RBC 3.84 L Hgb 11.7 L Hct 34.3 L MCV 89.4 MCH 30.5 MCHC 34.1 RDW 12.5 Plt Count 348 MPV 7.3 Neut % (Auto) 65.8 Lymph % (Auto) 16.0 Nance % (Auto) 8.4 H Eos % (Auto) 9.3 H Baso % (Auto) 0.5 Neut # (Auto) 7.8 H Lymph # (Auto) 1.9 Nance # (Auto) 1.0 H Eos # (Auto) 1.1 H Baso # (Auto) 0.1 WBC Differential . Differential Comment Auto diff final D-Dimer Quant (PE/DVT) Sodium 137 Potassium 4.1 Chloride 101 Carbon Dioxide 27.6 Anion Gap 8 BUN 23 H Creatinine 1.55 H Estimated GFR 43 L POC Glucose 183 H Random Glucose 168 H D Calcium 9.1 Total Bilirubin 0.4 AST 18 ALT 31 Alkaline Phosphatase 95 Troponin I B-Natriuretic Peptide Total Protein 8.0 Albumin 2.8 L 12/04/17 08:45 WBC RBC Hgb Hct MCV MCH MCHC RDW Plt Count MPV Neut % (Auto) Lymph % (Auto) Nance % (Auto) Eos % (Auto) Baso % (Auto) Neut # (Auto) Lymph # (Auto) Nance # (Auto) Eos # (Auto) Baso # (Auto) WBC Differential Differential Comment D-Dimer Quant (PE/DVT) Sodium Potassium Chloride Carbon Dioxide Anion Gap BUN Creatinine Estimated GFR POC Glucose 249 H Random Glucose Calcium Total Bilirubin AST ALT Alkaline Phosphatase Troponin I B-Natriuretic Peptide Total Protein Albumin - Imaging Impressions Chest X-Ray 12/03/17 11:15 CONCLUSION: 1. New infiltrate in the right upper lobe most characteristic of pneumonia. 2. Mild patchy opacity at the left lung base. Assessment and Plan - Assessment (1) CAD (coronary artery disease) Code(s): I25.10 - Atherosclerotic heart disease of [place] coronary artery without angina pectoris Status: Acute (2) T2DM (type 2 diabetes mellitus) Code(s): E11.9 - Type 2 diabetes mellitus without complications Status: Acute (3) Community acquired pneumonia Code(s): J18.9 - Pneumonia, unspecified organism Status: Acute - Plan 82 yo with PMH CAD (prior stenting), HTN, DM, HTN who presents to [place] ED with shortness of breath and chills for the past 1.5 weeks. Community-acquired pneumonia -Initial symptomatology include shortness of breath, cough, chills -History of collapsed lung, history of tobacco abuse -Chest x-ray showed new infiltrate in right upper lobe most characteristic of pneumonia. Mild patchy opacity at left lung base -Continue IV ceftriaxone, IV azithromycin -Duo nebs as needed, scheduled -Symbicort, Mucinex -Incentive spirometry -Supplemental oxygen if needed, keep O2 sat greater than 90% -Urine Legionella, urine strep, Sputum culture ordered, follow-up results -Physical therapy eval and treat -If results of been negative, patient significantly improve the switch over to p.o. antibiotics HTN, controlled CAD, hx -Continue home medication losartan, hydrochlorothiazide, aspirin -Monitor BP trend Acute kidney injury on chronic kidney disease -Baseline reviewed per EMR -IV fluids for hydration -Improving creatinine -Monitor renal indicis BPH -Continue tamsulosin DM 2 -Hold off home medication metformin for now, elevated creatinine -Insulin sliding scale. Monitor Accu-Cheks -Patient is eating well, continue glipizide twice daily DVT prop Lovenox Code Status: Full code Discussed Condition With: Patient, nursing, Dr. Townsend Discharge Planning: Plan to Dc home when clinically improved (3) Community acquired pneumonia Qualifiers: Laterality: right Lung location: upper lobe of lung Qualified Code(s): J18.1 - Lobar pneumonia, unspecified organism
[2017-12-04] MEDS ORDERED: Azithromycin Inj 250 MG in Sodium Chlor 0.9% Inj 250 ML IV.SIG SCH (13:00)
[2017-12-04 17:30] LABS: Calcium 8.7 mg/dL (8.5-10.1); Carbon Dioxide 28.1 meq/L (21.0-32.0); Potassium 4.3 meq/L (3.5-5.1)
[2017-12-04 17:59] LABS: Hemoglobin A1c 8.9 % (4.3-6.0)
[2017-12-04] MEDS: Enoxaparin Inj 30 MG/0.3 ML Syringe SQ SCH (20:58)
[2017-12-04] MEDS: guaiFENesin 600 MG ER Tablet PO SCH (20:58)
[2017-12-05] MEDS: Insulin NovoLOG Aspart Correctional Sugar Inj SQ SCH ×2 (03:31→08:43)
[2017-12-05 07:44] LABS: Baso % (Auto) 0.5 % (0.0-2.0); Eos # (Auto) 1.2 th/mm3 (0.0-0.4); Eos % (Auto) 14.1 % (0.0-4.0); Hemoglobin 10.9 gm/dL (13.0-17.0); Lymph # (Auto) 1.6 th/mm3 (1.0-4.8); Lymph % (Auto) 18.6 % (9.0-44.0); Mean Corpuscular HGB Conc 35.1 % (32.0-36.0); Mean Corpuscular Hemoglobin 30.9 pg (27.0-34.0); Mean Corpuscular Volume 88.1 fL (80.0-100.0); Mean Platelet Volume 7.4 fL (7.0-11.0); Mono # (Auto) 0.7 th/mm3 (0.0-0.9); Mono % (Auto) 8.4 % (0.0-8.0); Neut # (Auto) 4.9 th/mm3 (1.8-7.7); Neut % (Auto) 58.4 % (16.0-70.0); Platelet Count 296 th/mm3 (150-450); Red Blood Count 3.52 mil/mm3 (4.50-5.90); Red Cell Distribution Width 12.7 % (11.6-17.2); White Blood Count 8.4 th/mm3 (4.0-11.0)
--- NOTE | 2017-12-05 08:31 | P.PN ---
Subjective Interval history: Follow-up pneumonia Physical Exam Vital signs: Vital Signs 12/04/17 12:00 12/04/17 14:32 12/04/17 15:36 Temperature 97.7 F 97.7 F Pulse Rate 63 65 75 Respiratory Rate 18 16 Blood Pressure 125/64 118/64 Pulse Oximetry 96 96 12/04/17 19:22 12/04/17 23:21 12/05/17 03:23 Temperature 98.3 F 99.1 F 98.6 F Pulse Rate 66 65 83 Respiratory Rate 20 19 18 Blood Pressure 114/57 L 135/71 133/69 Pulse Oximetry 95 94 L 95 12/05/17 04:00 12/05/17 08:00 12/05/17 08:05 Temperature 98.6 F 98.4 F Pulse Rate 83 68 66 Respiratory Rate 18 18 Blood Pressure 133/69 120/68 Pulse Oximetry 95 Intake & Output 12/04/17 12/05/17 12/05/17 18:59 06:59 18:59 Intake Total 1350 / 1350 Balance 1350 / 1350 Intake: IV 1350 / 1350 NS Inj 1,000 ML @ 125 mls/hr IV 1000 / 1000 .CONT .Q8H ANETA Rx#:[id number] Azithromycin Inj 250 MG In NS 250 / 250 Inj 250 ML @ 250 mls/hr IV.SIG Q24H ANETA Rx#:[id number] Rocephin Inj 1,000 MG In NS Inj 100 / 100 100 ML @ 200 mls/hr IV.SIG Q24H ANETA Rx#:[id number] Other: # Voids 9 Date of Last Bowel Movement 12/03/17 12/03/17 Narrative: GENERAL: This is a well-nourished, well-developed patient, in no apparent distress. SKIN: Warm and dry CARDIOVASCULAR: Regular rate and rhythm without murmurs, gallops, or rubs. RESPIRATORY: Decreased breath sounds. No wheezes, rales, or rhonchi. GASTROINTESTINAL: Abdomen soft, non-tender, nondistended. Bowel Sounds normoactive x4. MUSCULOSKELETAL: Extremities without clubbing, cyanosis, or edema. NEUROLOGICAL: Awake and alert. Oriented to place, person. No focal neuro deficit. Moves all extremities. Normal speech. Results - Labs CBC & Chem 7: 12/05/17 06:19 12/04/17 16:07 Laboratory Results - last 24 hr 12/04/17 12/04/17 12/04/17 08:45 13:02 16:07 WBC RBC Hgb Hct MCV MCH MCHC RDW Plt Count MPV Neut % (Auto) Lymph % (Auto) [place] % (Auto) Eos % (Auto) Baso % (Auto) Neut # (Auto) Lymph # (Auto) [place] # (Auto) Eos # (Auto) Baso # (Auto) WBC Differential Differential Comment Sodium 139 Potassium 4.3 Chloride 104 Carbon Dioxide 28.1 Anion Gap 7 BUN 24 H Creatinine 1.63 H Estimated GFR 41 L POC Glucose 249 H 329 H Random Glucose 243 H Hemoglobin A1c Calcium 8.7 12/04/17 12/04/17 12/04/17 16:07 18:21 20:54 WBC RBC Hgb Hct MCV MCH MCHC RDW Plt Count MPV Neut % (Auto) Lymph % (Auto) [place] % (Auto) Eos % (Auto) Baso % (Auto) Neut # (Auto) Lymph # (Auto) [place] # (Auto) Eos # (Auto) Baso # (Auto) WBC Differential Differential Comment Sodium Potassium Chloride Carbon Dioxide Anion Gap BUN Creatinine Estimated GFR POC Glucose 183 H 240 H Random Glucose Hemoglobin A1c 8.9 H Calcium 12/05/17 12/05/17 12/05/17 03:21 06:19 08:05 WBC 8.4 RBC 3.52 L Hgb 10.9 L Hct 31.0 L MCV 88.1 MCH 30.9 MCHC 35.1 RDW 12.7 Plt Count 296 MPV 7.4 Neut % (Auto) 58.4 Lymph % (Auto) 18.6 Baker % (Auto) 8.4 H Eos % (Auto) 14.1 H Baso % (Auto) 0.5 Neut # (Auto) 4.9 Lymph # (Auto) 1.6 Baker # (Auto) 0.7 Eos # (Auto) 1.2 H Baso # (Auto) 0.0 WBC Differential . Differential Comment Auto diff final Sodium Potassium Chloride Carbon Dioxide Anion Gap BUN Creatinine Estimated GFR POC Glucose 141 H 147 H Random Glucose Hemoglobin A1c Calcium Microbiology 12/03/17 11:45 Blood - Line Aerobic Blood Culture - Preliminary No growth in 1 day 12/03/17 11:45 Blood - Line Anaerobic Blood Culture - Preliminary No growth in 1 day 12/03/17 12:30 Blood - Line Aerobic Blood Culture - Preliminary No growth in 1 day 12/03/17 12:30 Blood - Line Anaerobic Blood Culture - Preliminary No growth in 1 day - Imaging ITS Impressions Chest X-Ray 12/03/17 11:15 CONCLUSION: 1. New infiltrate in the right upper lobe most characteristic of pneumonia. 2. Mild patchy opacity at the left lung base. - Procedures none Assessment and Plan - Assessment (1) CAD (coronary artery disease) Code(s): I25.10 - Atherosclerotic heart disease of [place] coronary artery without angina pectoris Status: Acute (2) T2DM (type 2 diabetes mellitus) Code(s): E11.9 - Type 2 diabetes mellitus without complications Status: Acute (3) Community acquired pneumonia Code(s): J18.9 - Pneumonia, unspecified organism Status: Acute - Plan 82 yo with PMH CAD (prior stenting), HTN, DM, HTN who presents to [facility] ED with shortness of breath and chills for the past 1.5 weeks. Community-acquired pneumonia -Initial symptomatology include shortness of breath, cough, chills -History of collapsed lung, history of tobacco abuse -Chest x-ray showed new infiltrate in right upper lobe most characteristic of pneumonia. Mild patchy opacity at left lung base -Continue IV ceftriaxone, IV azithromycin since 12/04 -Duo nebs as needed, scheduled -Symbicort, Mucinex -Incentive spirometry -Supplemental oxygen if needed, keep O2 sat greater than 90% -Urine Legionella, urine strep, Sputum culture ordered, follow-up results -Physical therapy eval and treat no HC recommended -If results of been negative, patient significantly improve the switch over to p.o. antibiotics HTN, controlled CAD, hx -Continue home medication losartan, hydrochlorothiazide, aspirin -Monitor BP trend Chronic kidney disease stage 3 -dc IV fluids for hydration -Improving creatinine -Monitor renal indicis BPH -Continue tamsulosin DM 2 -Hold off home medication metformin for now, elevated creatinine -Insulin sliding scale. Monitor Accu-Cheks -Patient is eating well, continue glipizide twice daily. Uncontrolled a1c 8.9 diabetic education DVT prop Lovenox (3) Community acquired pneumonia Qualifiers: Laterality: right Lung location: upper lobe of lung Qualified Code(s): J18.1 - Lobar pneumonia, unspecified organism
[2017-12-05 08:39] LABS: Carbon Dioxide 28.8 meq/L (21.0-32.0); Potassium 3.9 meq/L (3.5-5.1)
[2017-12-05] MEDS: Senna/Docusate Sodium 8.6/50 MG Tablet PO SCH (08:42)
[2017-12-05] MEDS: guaiFENesin 600 MG ER Tablet PO SCH (08:42)
[2017-12-05] MEDS: hydroCHLOROthiazide 25 MG Tablet PO SCH (08:42)
[2017-12-05] MEDS: glipiZIDE 10 MG Tablet PO SCH (08:42)
[2017-12-05] MEDS: Sod Chloride 0.9% Inj 1,000 ML IV.CONT SCH (08:43)
[2017-12-05] MEDS ORDERED: Azithromycin 250 MG Tablet PO SCH (12:00)
--- NOTE | 2017-12-05 12:08 | P.DS ---
Date of admission: 12/03/17 13:53 Primary care physician: Paramjit Guthrie MD Brief History from admission: Mr. Morales 82 yo with PMH CAD (prior stenting), HTN, DM, HTN who presents to [facility] with shortness of breath and chills for the past 1.5 weeks. Patient states that he started feeling chills and sweating last week when driving back from visiting his son. Over the past week, patient started feeling more short of breath. Due to these symptoms, patient obtained labs with his PCP several days prior which were reassuring. Due to persistent and worsening shortness of breath and chills, he decided to seek care. Patient states that his cough is nonproductive. He elinor not mention specific sick contacts. He reports prior "collapsed lung" years prior but only a distant smoking history when he quit at age ~21. Patient has not had recent pneumonia; he reports receiving typical vaccines for his age. Regarding patient's cardiac history, he reports prior stenting but no recent chest pain. He does not get leg swelling. Patient reports taking ASA, Plavix, Propanolol, and ARB/HCTZ, but not a statin. Patient also reports difficulty with urinating unless he takes Tamsulosin ( supplemented history). Patient does not report headache, visual changes, abnormal bowel movements, urinary changes. Patient has still had normal appetite until he felt poorly. DS: Diagnosis - Discharge Diagnosis (1) CAD (coronary artery disease) Status: Acute (2) T2DM (type 2 diabetes mellitus) Status: Acute (3) Community acquired pneumonia Status: Acute DS: Medications - Discharge Medications Prescriptions: azithromycin 250 mg PO DAILY #2 tab cefuroxime axetil 500 mg PO Q12HR #9 tab DS: Summary Hospital Course: 82 yo with PMH CAD (prior stenting), HTN, DM, HTN who presents to [facility] ED with shortness of breath and chills for the past 1.5 weeks. Community-acquired pneumonia. He is clinically stable ambulating with good exercise tolerance on room air. Switch to p.o. Ceftin and Zithromax total of 7 day treatment. Blood cultures negative. Repeat chest x-ray in 6 weeks. HTN, controlled CAD, hx -Continue home medication losartan, hydrochlorothiazide, aspirin -Monitor BP trend Chronic kidney disease stage 3. Stable BPH. Stable continue tamsulosin DM 2. Uncontrolled A1c 8.9. Provided diabetic education. Increase glipizide to 50 mg twice a day. Discontinue metformin secondary to chronic kidney disease. Outpatient follow-up DVT prop Lovenox - Time Spent with Patient Total time spent providing and/or coordinating discharge services: Greater than 30 minutes - Quality: VTE Deep Vein Thrombosis/Pulmonary Embolism Present on Admission: No Exam Vital signs: Vital Signs 12/04/17 14:32 12/04/17 15:36 12/04/17 19:22 Temperature 97.7 F 98.3 F Pulse Rate 65 75 66 Respiratory Rate 16 20 Blood Pressure 118/64 114/57 L Pulse Oximetry 96 95 12/04/17 23:21 12/05/17 03:23 12/05/17 04:00 Temperature 99.1 F 98.6 F 98.6 F Pulse Rate 65 83 83 Respiratory Rate 19 18 18 Blood Pressure 135/71 133/69 133/69 Pulse Oximetry 94 L 95 12/05/17 08:00 12/05/17 08:05 Temperature 98.4 F Pulse Rate 68 66 Respiratory Rate 18 Blood Pressure 120/68 Pulse Oximetry 95 Intake & Output 12/04/17 12/05/17 12/05/17 18:59 06:59 18:59 Intake Total 1350 / 1350 1000 / 1000 Balance 1350 / 1350 1000 / 1000 Intake: IV 1350 / 1350 1000 / 1000 NS Inj 1,000 ML @ 125 mls/hr IV 1000 / 1000 1000 / 1000 .CONT .Q8H ANETA Rx#:[id number] Azithromycin Inj 250 MG In NS 250 / 250 Inj 250 ML @ 250 mls/hr IV.SIG Q24H ANETA Rx#:[id number] Rocephin Inj 1,000 MG In NS Inj 100 / 100 100 ML @ 200 mls/hr IV.SIG Q24H ANETA Rx#:[id number] Other: # Voids 9 Date of Last Bowel Movement 12/03/17 12/03/17 Narrative: GENERAL: This is a well-nourished, well-developed patient, in no apparent distress. SKIN: Warm and dry CARDIOVASCULAR: Regular rate and rhythm without murmurs, gallops, or rubs. RESPIRATORY: Decreased breath sounds. No wheezes, rales, or rhonchi. GASTROINTESTINAL: Abdomen soft, non-tender, nondistended. Bowel Sounds normoactive x4. MUSCULOSKELETAL: Extremities without clubbing, cyanosis, or edema. NEUROLOGICAL: Awake and alert. Oriented to place, person. No focal neuro deficit. Moves all extremities. Normal speech. Results Procedures completed during hospitalization: none Labs on day of discharge: Labs from last 24 hours 12/05/17 12/05/17 12/05/17 08:05 06:19 06:19 WBC 8.4 RBC 3.52 L Hgb 10.9 L Hct 31.0 L MCV 88.1 MCH 30.9 MCHC 35.1 RDW 12.7 Plt Count 296 MPV 7.4 Neut % (Auto) 58.4 Lymph % (Auto) 18.6 [place] % (Auto) 8.4 H Eos % (Auto) 14.1 H Baso % (Auto) 0.5 Neut # (Auto) 4.9 Lymph # (Auto) 1.6 [place] # (Auto) 0.7 Eos # (Auto) 1.2 H Baso # (Auto) 0.0 WBC Differential . Differential Comment Auto diff final Sodium 141 Potassium 3.9 Chloride 106 Carbon Dioxide 28.8 Anion Gap 6 BUN 21 H Creatinine 1.39 H Estimated GFR 49 L POC Glucose 147 H Random Glucose 127 H D Hemoglobin A1c Calcium 9.0 12/05/17 12/04/17 12/04/17 03:21 20:54 18:21 WBC RBC Hgb Hct MCV MCH MCHC RDW Plt Count MPV Neut % (Auto) Lymph % (Auto) [place] % (Auto) Eos % (Auto) Baso % (Auto) Neut # (Auto) Lymph # (Auto) [place] # (Auto) Eos # (Auto) Baso # (Auto) WBC Differential Differential Comment Sodium Potassium Chloride Carbon Dioxide Anion Gap BUN Creatinine Estimated GFR POC Glucose 141 H 240 H 183 H Random Glucose Hemoglobin A1c Calcium 12/04/17 12/04/17 12/04/17 16:07 16:07 13:02 WBC RBC Hgb Hct MCV MCH MCHC RDW Plt Count MPV Neut % (Auto) Lymph % (Auto) [place] % (Auto) Eos % (Auto) Baso % (Auto) Neut # (Auto) Lymph # (Auto) [place] # (Auto) Eos # (Auto) Baso # (Auto) WBC Differential Differential Comment Sodium 139 Potassium 4.3 Chloride 104 Carbon Dioxide 28.1 Anion Gap 7 BUN 24 H Creatinine 1.63 H Estimated GFR 41 L POC Glucose 329 H Random Glucose 243 H Hemoglobin A1c 8.9 H Calcium 8.7 Preliminary micro results at discharge 12/03/17 11:45 Aerobic Blood Culture - Preliminary Blood - Line No growth in 2 days Anaerobic Blood Culture - Preliminary No growth in 2 days 12/03/17 12:30 Aerobic Blood Culture - Preliminary Blood - Line No growth in 2 days Anaerobic Blood Culture - Preliminary No growth in 2 days - Impressions ITS Impressions Chest X-Ray 12/03/17 11:15 CONCLUSION: 1. New infiltrate in the right upper lobe most characteristic of pneumonia. 2. Mild patchy opacity at the left lung base. Discharge Plan - Discharge Disposition Patient Disposition: Discharge Home - Discharge Condition Condition: Stable - Discharge Order Discharge Orders: Discharge Order (Routine); Ordered 12/05/17 Ordered By: Eyad Cintron - Physicians Team Primary Care Provider: Paramjit Guthrie Attending Provider: Eyad Cintron Other Providers: Ethel Davenport
== END 2017-12-05 13:20 | disposition home or self-care (01) ==
LOC: NEDA 10:55 → NEPHCDU 10:55 → NEPE 10:55 → NEPHCDU 17:05
PROVIDERS: ADMIT Internal Medicine; ATTEND Internal Medicine

== ENCOUNTER 2018-07-09 16:43 | Inpatient (IN) ==
--- NOTE | 2018-07-09 16:59 | ED ---
HPI General Chief Complaint: Chest Pain Stated Complaint: Stemi Alert Time Seen by Provider: 07/09/18 16:53 Source: patient Mode of arrival: EMS Limitations: no limitations History of Present Illness HPI narrative: The patient a 83-year-old male who presents to the emergency department via EMS as a STEMI alert. The patient states he developed chest pain earlier today after he went bowling and went out to lunch. The patient returned home, was sitting down watching TV an hour after he returned home when he developed chest pain. The chest pain was substernal, described as heaviness and pressure, and radiated to the jaw. The patient denied any nausea , vomiting, diaphoresis or shortness of breath. However, the patient states the pain felt similar to a previous heart attack. The patient states he had a stent placed in [facility] that occluded after discharge and had to be flown back to the hospital for the occlusion to be fixed. 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 The patient took an aspirin at home and a nitroglycerin at home, was also administered one nitroglycerin by EMS prior to arrival. The patient's pain has improved, is down to a 3/10 from an initial 7/10. The patient denies any history of pulmonary embolism or DVT. Symptoms are moderate and have improved after nitroglycerin. The patient does have a history of hypertension, hyperlipidemia, diabetes, and coronary artery disease with prior stent placement. MD complaint: Reports chest pain STEMI Alert: No Onset (ago): hour(s) Duration: constant Onset: during rest Pain location: Reports substernal Severity: moderate Severity scale (1-10): 7 Quality: Reports heaviness Pain radiation: Reports jaw/teeth Relieving factors: nitroglycerin Exacerbating factors: nothing Context: Reports other Treatments prior to arrival chest pain: Reports aspirin and nitroglycerin Related Data Home Medications Medication Instructions Recorded Confirmed aspirin [Aspirin Low Dose] 81 mg PO DAILY 12/03/17 07/09/18 losartan-hydrochlorothiazide 1 tab PO DAILY 12/03/17 07/09/18 multivitamin 1 tab PO DAILY 12/03/17 07/09/18 propranolol 100 mg PO DAILY 12/03/17 07/09/18 metformin 850 mg PO TID 07/09/18 07/09/18 Previous Rx's Medication Instructions Recorded glipizide 15 mg PO BID #90 tab 12/05/17 Allergies Allergy/AdvReac Type Severity Reaction Status Date / Time No Known Allergies Allergy Verified 04/17/18 22:12 Review of Systems ROS: all other systems reviewed are negative [facility] Medical History Medical History CAD (coronary artery disease) (Acute) Diabetes (Acute) HBP (high blood pressure) (Acute) Myocardial infarction (Acute) Surgical History Surgical History History of heart artery stent (Acute) Family History Family History Mother Cardiac abnormality Father Emphysema lung Social History Social History Substance History: No History of Abuse Second Hand Smoke Exposure: No Smoking Status: Former smoker Tobacco Type: Cigarettes How Often Do You Have a Drink Containing Alcohol: 4 or more times a week Recent Travel in [facility] within the Last 8 Weeks: No Recent Out of Country Travel within the Last 8 Weeks: No Exam Narrative Exam Narrative: GENERAL: Awake, alert, very pleasant 83-year-old male who appears his stated age and is in mature distress. SKIN: Focused skin assessment warm/dry. HEAD: Atraumatic. Normocephalic. EYES: Pupils equal and round. No scleral icterus. No injection or drainage. ENT: No nasal bleeding or discharge. Mucous membranes pink and moist. NECK: Trachea midline. No JVD. CARDIOVASCULAR: Regular rate and rhythm. No murmur appreciated. RESPIRATORY: No accessory muscle use. Clear to auscultation. Breath sounds equal bilaterally. GASTROINTESTINAL: Abdomen soft, non-tender, nondistended. No epigastric tenderness. No guarding or rigidity. MUSCULOSKELETAL: No obvious deformities. No clubbing. No cyanosis. No edema. NEUROLOGICAL: Awake and alert. No obvious cranial nerve deficits. Motor grossly within normal limits. Normal speech. PSYCHIATRIC: Appropriate mood and affect; insight and judgment normal. Course Initial Documented Vital Signs Pulse Oximetry 98 07/09/18 17:00 Last Documented Vital Signs Temperature 98.7 F 07/09/18 17:03 Pulse Rate 88 07/09/18 17:03 Respiratory Rate 17 07/09/18 17:03 Blood Pressure 119/56 L 07/09/18 17:03 Pulse Oximetry 98 07/09/18 17:03 Critical Care Time Critical Care Time: Yes Total Critical Care Time: 40 Attestation: Aggregate critical care time was 40 minutes. Time to perform other separately billable procedures was not included in the critical care time. My time did not include minutes spent treating any other patients simultaneously or on activities that did not directly contribute to the patient's treatment. The services I provided to this patient were to treat and/or prevent clinically significant deterioration that could result in: Arrhythmia, dysrhythmia, cardiomyopathy, pulmonary edema, congestive heart failure, sudden . I provided critical care services requiring my management, as noted below: Chart data review, documentation time, medication orders and management, vital sign assessments/reviewing monitor data, ordering and reviewing lab tests, ordering and interpreting/reviewing x-rays and diagnostic studies, care of the patient and discussion of the patient with the admitting physicians. Medical Decision Making MDM Narrative Medical decision making narrative: IV was established, labs are drawn and sent, and the patient was placed on cardiac telemetry monitoring and continuous pulse oximetry monitoring. Immediate EKG was performed which reveals sinus rhythm with frequent PVCs and Q waves in lead II, III, and aVF. However, there was no significant ST elevation noted, no evidence of STEMI on EKG performed in the emergency department. The patient's symptoms have also improved from a pain 7/ 10 to a 3/10. The patient was administered Nitropaste in the emergency department and moved to echo room 49. The patient's chest x-ray is unremarkable. Creatinine is mildly elevated at 1.99. The patient's troponin was elevated at 0.22. I reviewed the EMR, the patient underwent cardiac catheterization June [address] Waters who placed a stent. Therefore, a call was placed to Dr. Waters, I discussed the patient with Dr. Sosa. After discussion was agreed the patient would be placed on a heparin drip, admitted to [facility], and have routine consult to Dr. Waters will be placed. I discussed the patient with Dr. Townsend who agrees with admission. Medical Screen Exam Complete: Yes Emergency Medical Condition: Yes Differential Diagnosis Differential Diagnosis: Differential diagnosis includes angina, ACS, STEMI, GERD , esophageal spasm, aortic dissection, pulmonary embolism, gastritis, pancreatitis. Lab Data Result diagrams: 07/09/18 16:49 07/09/18 16:49 Lab Results 07/09/18 07/09/18 07/09/18 Range/Units 16:49 16:49 16:49 WBC 6.3 (4.0-11.0) th/mm3 RBC 3.94 L (4.50-5.90) mil/mm3 Hgb 12.7 L (13.0-17.0) gm/dL Hct 36.2 L (39.0-51.0) % MCV 91.8 (80.0-100.0) fL MCH 32.3 (27.0-34.0) pg MCHC 35.2 (32.0-36.0) % RDW 13.7 (11.6-17.2) % Plt Count 224 (150-450) th/mm3 MPV 7.7 (7.0-11.0) fL Neut % (Auto) 51.3 (16.0-70.0) % Lymph % (Auto) 27.4 (9.0-44.0) % [place] % (Auto) 8.6 H (0.0-8.0) % Eos % (Auto) 11.7 H (0.0-4.0) % Baso % (Auto) 1.0 (0.0-2.0) % Neut # (Auto) 3.2 (1.8-7.7) th/mm3 Lymph # (Auto) 1.7 (1.0-4.8) th/mm3 [place] # (Auto) 0.5 (0.0-0.9) th/mm3 Eos # (Auto) 0.7 H (0.0-0.4) th/mm3 Baso # (Auto) 0.1 (0.0-0.2) th/mm3 WBC Differential . Differential Comment Auto diff final PT 10.6 (9.8-11.6) sec INR 1.0 Ratio APTT 26.4 (23.4-31.7) sec Sodium 138 (136-145) meq/L Potassium 4.2 (3.5-5.1) meq/L Chloride 102 (98-107) meq/L Carbon Dioxide 26.4 (21.0-32.0) meq/L Anion Gap 10 (5-15) meq/L BUN 32 H (7-18) mg/dL Creatinine 1.99 H (0.60-1.30) mg/dL Estimated GFR 32 L (>89) mL/min Random Glucose 359 H (74-106) mg/dL Calcium 8.7 (8.5-10.1) mg/dL Magnesium 2.0 (1.5-2.5) mg/dL Total Bilirubin 0.3 (0.2-1.0) mg/dL AST 13 L (15-37) U/L ALT 17 (12-78) U/L Alkaline Phosphatase 90 (45-117) U/L Total Creatine Kinase 51 (39-308) U/L Troponin I 0.22 H (0.02-0.05) ng/mL B-Natriuretic Peptide (0-100) pg/mL Total Protein 7.5 (6.4-8.2) g/dL Albumin 3.5 (3.4-5.0) g/dL Lipase 157 (73-393) U/L 07/09/18 Range/Units 16:49 WBC (4.0-11.0) th/mm3 RBC (4.50-5.90) mil/mm3 Hgb (13.0-17.0) gm/dL Hct (39.0-51.0) % MCV (80.0-100.0) fL MCH (27.0-34.0) pg MCHC (32.0-36.0) % RDW (11.6-17.2) % Plt Count (150-450) th/mm3 MPV (7.0-11.0) fL Neut % (Auto) (16.0-70.0) % Lymph % (Auto) (9.0-44.0) % [place] % (Auto) (0.0-8.0) % Eos % (Auto) (0.0-4.0) % Baso % (Auto) (0.0-2.0) % Neut # (Auto) (1.8-7.7) th/mm3 Lymph # (Auto) (1.0-4.8) th/mm3 [place] # (Auto) (0.0-0.9) th/mm3 Eos # (Auto) (0.0-0.4) th/mm3 Baso # (Auto) (0.0-0.2) th/mm3 WBC Differential Differential Comment PT (9.8-11.6) sec INR Ratio APTT (23.4-31.7) sec Sodium (136-145) meq/L Potassium (3.5-5.1) meq/L Chloride (98-107) meq/L Carbon Dioxide (21.0-32.0) meq/L Anion Gap (5-15) meq/L BUN (7-18) mg/dL Creatinine (0.60-1.30) mg/dL Estimated GFR (>89) mL/min Random Glucose (74-106) mg/dL Calcium (8.5-10.1) mg/dL Magnesium (1.5-2.5) mg/dL Total Bilirubin (0.2-1.0) mg/dL AST (15-37) U/L ALT (12-78) U/L Alkaline Phosphatase (45-117) U/L Total Creatine Kinase (39-308) U/L Troponin I (0.02-0.05) ng/mL B-Natriuretic Peptide 64 (0-100) pg/mL Total Protein (6.4-8.2) g/dL Albumin (3.4-5.0) g/dL Lipase (73-393) U/L Imaging Data Radiologist's impression: Chest X-Ray 07/09/18 16:53 CONCLUSION: 1. Mild cardiomegaly. 2. No focal infiltrate or pulmonary vascular congestion. ECG Data EKG Prior to Arrival: No Attestation: I personally reviewed and interpreted this ECG as follows: Interpretation: EKG revealed sinus rhythm with frequent PVC. Q waves noted in lead II, III, and aVF. No acute ST elevation noted. Discharge Plan Discharge Disposition Patient Disposition: ED Admit(ED Internal Use Only) Discharge Condition Condition: Stable Discharge Order Discharge Orders: ED Use Only Admit Order (Routine); Ordered 07/09/18 Ordered By: Rajat Mcdowell Discharge Details Diagnosis: Non-ST elevation [place] (NSTEMI), Chronic kidney disease (CKD) Physicians Team ED Provider: Rajat Mcdowell Primary Care Provider: Paramjit Guthrie Rxs /Orders / Referrals /Forms Prescriptions: No Action multivitamin Tablet 1 tab PO DAILY RF: 0 aspirin [Aspirin Low Dose] 81 mg Tablet,Delayed Release (Dr/Ec) 81 mg PO DAILY RF: 0 losartan-hydrochlorothiazide 100-25 mg Tablet 1 tab PO DAILY RF: 0 propranolol 120 mg Capsule,Extended Release 24 Hr 100 mg PO DAILY RF: 0 glipizide 10 mg Tablet 15 mg PO BID Qty: 90 RF: 0 metformin 850 mg Tablet 850 mg PO TID RF: 0 Discharge Instructions Patient Printed Instructions: Chest Pain (ED) Discharge Interventions Interventions: Vital Signs Last Done: 07/09/18 17:03 Status ED Status: Admitted Patient
[2018-07-09 17:04] LABS: Baso # (Auto) 0.1 th/mm3 (0.0-0.2); Eos # (Auto) 0.7 th/mm3 (0.0-0.4); Eos % (Auto) 11.7 % (0.0-4.0); Hematocrit 36.2 % (39.0-51.0); Hemoglobin 12.7 gm/dL (13.0-17.0); Lymph # (Auto) 1.7 th/mm3 (1.0-4.8); Lymph % (Auto) 27.4 % (9.0-44.0); Mean Corpuscular HGB Conc 35.2 % (32.0-36.0); Mean Corpuscular Hemoglobin 32.3 pg (27.0-34.0); Mean Corpuscular Volume 91.8 fL (80.0-100.0); Mean Platelet Volume 7.7 fL (7.0-11.0); Mono # (Auto) 0.5 th/mm3 (0.0-0.9); Mono % (Auto) 8.6 % (0.0-8.0); Neut # (Auto) 3.2 th/mm3 (1.8-7.7); Neut % (Auto) 51.3 % (16.0-70.0); Platelet Count 224 th/mm3 (150-450); Red Blood Count 3.94 mil/mm3 (4.50-5.90); Red Cell Distribution Width 13.7 % (11.6-17.2); White Blood Count 6.3 th/mm3 (4.0-11.0)
[2018-07-09 17:14] LABS: Activated Partial Thrombo Time 26.4 sec (23.4-31.7); Prothrombin Time 10.6 sec (9.8-11.6)
--- NOTE | 2018-07-09 17:17 | XR ---
EXAM DATE: 07/09/2018 5:10 PM EST AGE/SEX: 83 years / Male INDICATIONS: Chest pain. CLINICAL DATA: This is the patient's initial encounter. Patient reports that signs and symptoms have been present for 1 day and indicates a pain score of 5/10. MEDICAL/SURGICAL HISTORY: None. None. COMPARISON: [facility] [place]ST 1V SINGLE AP, 04/17/2018. . FINDINGS: The heart is mildly prominent. The pulmonary vascular pattern is normal. The lungs are clear. CONCLUSION: 1. Mild cardiomegaly. 2. No focal infiltrate or pulmonary vascular congestion. Electronically signed by: Rui Gill MD Board Certified Radiologist 07/09/2018 5:15 PM EST
[2018-07-09 17:25] LABS: Alanine Aminotransferase 17 U/L (12-78); Albumin 3.5 g/dL (3.4-5.0); Anion Gap 10 meq/L (5-15); Aspartate Aminotransferase 13 U/L (15-37); Blood Urea Nitrogen 32 mg/dL (7-18); Calcium 8.7 mg/dL (8.5-10.1); Carbon Dioxide 26.4 meq/L (21.0-32.0); Chloride 102 meq/L (98-107); Glomerular Filtration Rate 32 mL/min (>89); Glucose,Random 359 mg/dL (74-106); Lipase 157 U/L (73-393); Potassium 4.2 meq/L (3.5-5.1); Sodium 138 meq/L (136-145)
[2018-07-09 17:29] LABS: Alkaline Phosphatase 90 U/L (45-117); Total Protein 7.5 g/dL (6.4-8.2); Troponin I 0.22 ng/mL (0.02-0.05)
[2018-07-09 17:32] LABS: Creatine Kinase 51 U/L (39-308)
[2018-07-09] MEDS ORDERED: Heparin 10,000 UNITS/10 ML Vial (for IV use) IV.PUSH STA (17:48)
[2018-07-09] MEDS ORDERED: Heparin Drip 25,000 UNIT/250 ML BAG IV.CONT PRN (18:07)
[2018-07-09] MEDS ORDERED: Sod Chloride 0.9% Inj 1,000 ML IV.CONT SCH (18:43)
[2018-07-09] MEDS ORDERED: Dextrose 50% in Water 50 ML Vial IV.PUSH PRN (18:44)
--- NOTE | 2018-07-09 18:53 | P.HPIM ---
History of Present Illness Primary Care Physician: Paramjit Guthrie MD Chief Complaint: Chest pain History of Present Illness: 83-year-old white male with a history of coronary artery disease, diabetes mellitus, ucr-qwyiodg-ebvkrwali, hypertension who presented to emergency room after he developed acute onset of substernal chest pain when he returned home from a bowling trip while he was sitting in the recliner. He describes the pain as a pressure-like pain with radiation to his jaw with a 8 out of 10 in intensity with no association with nausea, diaphoresis nor shortness of breath. He reports his pain was similar to the pain he has had in the past when he had a heart attack. His then gave him 2 aspirins and then called a neighbor to attempt to transport him to the nearest emergency room however secondary to worsening of the chest pain, they pulled aside and called for 911 in which EVAC responded and gave him nitro spray which did relieve the pain. Currently patient states that he is chest pain-free. He had a cardiac catheterization with stent placement with Dr. Waters back in June 2017. He states that initially he could not afford the Brilinta and medication was changed to Plavix. His last fill of the Plavix in March 08 after reviewing external medication data and since then has not been taking this medicine since May of this year. He denies any symptoms of orthopnea, paroxysmal nocturnal dyspnea, nor lower extremity edema. Inpatient Certification Inpatient Certification: I certify that the inpatient services were ordered in accordance with Medicare regulations governing the order. This includes certification that hospital inpatient services are reasonable and necessary and in the case of services not specified as inpatient-only under 42 CFR 419.22(n), that they are appropriately provided as inpatient services in accordance to with the 2-midnight benchmark under 43 CFR 412.3(e) Estimated Total Length of Stay (Days): 3 Plans for Post Hospital Care: Not yet determined Review of Systems Constitutional: Reports as per HPI, Denies chills, Denies fever(s) and Denies headache(s) Eyes: Denies blurry vision, Denies change in vision and Denies eye pain Ears, Nose, Mouth, and Throat: Denies abnormal hearing, Denies headache(s), Denies mouth pain, Denies nasal congestion, Denies neck pain and Denies sore throat Cardiovascular: Reports as per HPI, Reports chest pain, Denies pedal edema, Denies palpitations, Denies dyspnea, Denies orthopnea and Denies paroxysmal nocturnal dyspnea Respiratory: Denies cough, Denies dyspnea and Denies wheezing Gastrointestinal: Denies abdominal pain, Denies constipation, Denies loose stools, Denies nausea and Denies vomiting Musculoskeletal: Denies back pain, Denies myalgias, Denies arthralgias, Denies neck pain and Denies numbness Skin/Breast: Denies new lesions and Denies rash Neurologic: Denies abnormal hearing, Denies headache(s), Denies focal weakness, Denies memory loss and Denies numbness Psychiatric: Denies anxiety, Denies depression and Denies memory loss Endocrine: Denies cold intolerance, Denies heat intolerance and Denies palpitations Hematologic/Lymphatic: Denies easy bleeding and Denies easy bruising [facility] Medical History Medical History CAD (coronary artery disease) (Chronic) Diabetes (Chronic) HBP (high blood pressure) (Chronic) Myocardial infarction (Chronic) Surgical History Surgical History History of heart artery stent (Chronic) Social History Social History Substance History: No History of Abuse Second Hand Smoke Exposure: No Smoking Status: Former smoker Tobacco Type: Cigarettes How Often Do You Have a Drink Containing Alcohol: 2 to 3 times a week Recent Travel in [facility] within the Last 8 Weeks: No Recent Out of Country Travel within the Last 8 Weeks: No Immunization History Tetanus Immunization: <5 Years Medications and Allergies Allergies Allergy/AdvReac Type Severity Reaction Status Date / Time No Known Allergies Allergy Verified 04/17/18 22:12 Home Medications Medication Instructions Recorded Confirmed Type aspirin [Aspirin Low Dose] 81 mg PO DAILY 12/03/17 07/09/18 History losartan-hydrochlorothiazide 1 tab PO DAILY 12/03/17 07/09/18 History multivitamin 1 tab PO DAILY 12/03/17 07/09/18 History propranolol 100 mg PO DAILY 12/03/17 07/09/18 History glipizide 10 mg PO TID 07/09/18 07/09/18 History metformin 850 mg PO TID 07/09/18 07/09/18 History Active Medications: Active Medications Aspirin (Ecotrin) 325 mg PO DAILY ANETA Dextrose (D50w Vial) 50 ml IV.PUSH UNSCH PRN PRN Reason: PER HYPOGLYCEMIA PROTOCOL Glucagon (Glucagon Inj) 1 mg OTHER PRN PRN PRN Reason: for Hypoglycemia Protocol Heparin Sodium (Porcine) (Heparin Inj) 2,500 units IV.PUSH UNSCH PRN PRN Reason: aPTT 25-39 Heparin Sodium/Dextrose (Heparin/D5w 25,000 U/250 Ml) 25,000 unit in 250 mls @ 0 mls/hr IV.CONT TITRATE PRN; Protocol PRN Reason: Per Protocol Sodium Chloride (Ns Inj) 1,000 mls @ 100 mls/hr IV.CONT .Q10H ANETA Stop: 07/10/18 04:42 Insulin Aspart (Novolog Insulin Correctional Sugar Inj) 0 unit SQ ACHS ANETA; Protocol Nitroglycerin (Nitro-Bid 2% Oint) 1 inch TOPICAL Q6HR ANETA Non-Formulary Medication (Multivitamin [Multivitamin]) 1 tab PO DAILY ANETA Sodium Chloride (Ns Flush) 2 ml IV.FLUSH UNSCH PRN PRN Reason: FLUSH AFTER USING IV ACCESS Sodium Chloride (Ns Inj) 2 ml IV.FLUSH BID ANETA Sodium Chloride (Ns Inj) 2 ml IV.FLUSH UNSCH PRN PRN Reason: FLUSH AFTER USING IV ACCESS Physical Exam Vital signs: Vital Signs 07/09/18 17:00 07/09/18 17:03 07/09/18 17:10 Temperature 98.7 F Pulse Rate 88 Respiratory Rate 17 Blood Pressure 119/56 L Pulse Oximetry 98 98 98 Intake & Output 07/08/18 07/09/18 07/09/18 18:59 06:59 18:59 Weight 89.811 kg Narrative: GENERAL: Well-nourished well-developed white male no acute distress laying in bed SKIN: Warm and dry. HEAD: Atraumatic. Normocephalic. EYES: Pupils equal and round. No scleral icterus. No injection or drainage. ENT: No nasal bleeding or discharge. Mucous membranes pink and moist. NECK: Trachea midline. No JVD. CARDIOVASCULAR: Regular rate and rhythm. RESPIRATORY: No accessory muscle use. Clear to auscultation. Breath sounds equal bilaterally. GASTROINTESTINAL: Abdomen soft, non-tender, nondistended. Normoactive bowel sounds MUSCULOSKELETAL: Extremities without clubbing, cyanosis, or edema. No obvious deformities. NEUROLOGICAL: Awake and alert to person place and time. No obvious cranial nerve deficits. Motor grossly within normal limits. Five out of 5 muscle strength in the arms and legs. Normal speech. PSYCHIATRIC: Appropriate mood and affect; insight and judgment normal. Results Labs CBC & Chem 7: 07/10/18 05:48 07/10/18 05:48 Imaging Impressions Chest X-Ray 07/09/18 16:53 CONCLUSION: 1. Mild cardiomegaly. 2. No focal infiltrate or pulmonary vascular congestion. ECG Interpretation: EKG reveals sinus rhythm with Q waves in 2 3 and aVF and no ST wave elevation Caprini VTE Risk Assessment Caprini VTE Risk Assessment: Moderate/High Risk (score >= 2) Caprini Risk Assessment Model: Point Value = 1 Point Value = 2 Point Value = 3 Point Value = 5 Age 41-60 Minor surgery BMI > 25 kg/m2 Swollen legs Varicose veins or History of unexplained or recurrent spontaneous Oral contraceptives or hormone replacement Sepsis (< 1 month) Serious lung disease, including pneumonia (< 1 month) Abnormal pulmonary function Acute myocardial infarction Congestive heart failure (< 1 month) History of inflammatory bowel disease Medical patient at bed rest Age 61-74 Arthroscopic surgery Major open surgery (> 45 min) Laparoscopic surgery (> 45 min) Malignancy Confined to bed (> 72 hours) Immobilizing plaster cast Central venous access Age >= 75 History of VTE Family history of VTE Factor V Leiden Prothrombin [id number] Lupus anticoagulant Anticardiolipin antibodies Elevated serum homocysteine Heparin-induced thrombocytopenia Other congenital or acquired thrombophilia Stroke (< 1 month) Elective arthroplasty Hip, pelvis, or leg fracture Acute spinal cord injury (< 1 month) Prophylaxis Regimen: Total Risk Factor Score Risk Level Prophylaxis Regimen 0-1 Low Early ambulation 2 Moderate Order ONE of the following: *Sequential Compression Device (SCD) *Heparin 5000 units SQ BID 3-4 Higher Order ONE of the following medications: *Heparin 5000 units SQ TID *Enoxaparin/Lovenox 40 mg SQ daily (WT < 150 kg, CrCl > 30 mL/min) *Enoxaparin/Lovenox 30 mg SQ daily (WT < 150 kg, CrCl > 10-29 mL/min) *Enoxaparin/Lovenox 30 mg SQ BID (WT < 150 kg, CrCl > 30 mL/min) AND/OR *Sequential Compression Device (SCD) 5 or more Highest Order ONE of the following medications: *Heparin 5000 units SQ TID (Preferred with Epidurals) *Enoxaparin/Lovenox 40 mg SQ daily (WT < 150 kg, CrCl > 30 mL/min) *Enoxaparin/Lovenox 30 mg SQ daily (WT < 150 kg, CrCl > 10-29 mL/min) *Enoxaparin/Lovenox 30 mg SQ BID (WT < 150 kg, CrCl > 30 mL/min) AND *Sequential Compression Device (SCD) Assessment and Plan Plan 83-year-old white male with a history of coronary artery disease, non-insulin- dependent diabetes mellitus, hypertension presents with acute chest pain Non-ST elevation myocardial infarction -heparin drip has been initiated. Aspirin, Lopressor, Nitropaste, check fasting lipid profile and start statin. Patient currently not taking Plavix, had a previous cardiac catheterization done June 2017. We will consult his resources representative Dr. Waters for further recommendations. Hypertension hold losartan HCTZ secondary to acute kidney injury superimposed on chronic kidney disease stage III, continue beta-luna Acute kidney injury superimposed on chronic kidney disease stage IIIstop metformin, hold losartan HCTZ. IV fluid hydration overnight and repeat creatinine in the morning. Avoid nephrotoxins. Zjv-sdcrehy-mqvuyfxhi diabetes mellituscontinue monitor blood sugar with sliding scale insulin. Stop metformin secondary to chronic kidney disease. Restart glipizide in the morning if diet can be resumed if no interventions planned. DVT prophylaxisheparin
[2018-07-09] MEDS ORDERED: glipiZIDE 5 MG Tablet PO ONE (19:07)
--- NOTE | 2018-07-09 21:20 | ECG ---
Date Performed: 07/09/2018 Time Performed: 16:45:50 PTAGE: 83 years EKG: Sinus rhythm WITH FREQUENT VENTRICULAR PREMATURE COMPLEXES INFERIOR MYOCARDIAL INFARCTION ABNORMAL ECG INTERPRETA TION BASED ON A DEFAULT AGE OF 90 YEARS NO PREVIOUS TRACING DOCTOR: Roberto Sosa Interpretating Date/Time 07/09/2018 21:18:40
[2018-07-09] MEDS: Insulin NovoLOG Aspart Correctional Sugar Inj SQ SCH (22:58)
[2018-07-09] MEDS: Metoprolol Tartrate 25 MG Tablet PO SCH (22:59)
[2018-07-09] MEDS ORDERED: Heparin 10,000 UNITS/10 ML Vial (for IV use) IV.PUSH PRN (23:48)
[2018-07-10 06:12] LABS: Hematocrit 33.3 % (39.0-51.0); Mean Corpuscular HGB Conc 35.9 % (32.0-36.0); Mean Corpuscular Hemoglobin 32.3 pg (27.0-34.0); Mean Corpuscular Volume 89.9 fL (80.0-100.0); Mean Platelet Volume 7.8 fL (7.0-11.0); Platelet Count 190 th/mm3 (150-450); Red Blood Count 3.71 mil/mm3 (4.50-5.90); Red Cell Distribution Width 13.6 % (11.6-17.2); White Blood Count 6.5 th/mm3 (4.0-11.0)
[2018-07-10 06:43] LABS: Calcium 9.3 mg/dL (8.5-10.1)
[2018-07-10 06:47] LABS: Chol/HDL Ratio 2.43 Ratio; HDL Cholesterol 35.8 mg/dL (40.0-60.0); Troponin I 0.34 ng/mL (0.02-0.05)
[2018-07-10] MEDS: Insulin NovoLOG Aspart Correctional Sugar Inj SQ SCH ×4 (08:15→21:51)
[2018-07-10] MEDS: Metoprolol Tartrate 25 MG Tablet PO SCH ×2 (08:16→21:50)
[2018-07-10] MEDS ORDERED: Heparin/NS PF Inj 1,000 ML ONE (09:28)
[2018-07-10] MEDS ORDERED: fentaNYL Citrate Inj 100 MCG/2 ML Ampul ONE (09:28)
[2018-07-10] MEDS ORDERED: Heparin 10,000 UNITS/10 ML Vial (for IV use) ONE (09:29)
[2018-07-10] MEDS ORDERED: Iohexol 350 MG/ML 100 ML Vial (for Cath Lab) IVCONTRAST ONE (10:00)
[2018-07-10] MEDS ORDERED: Misc Info for Pharmacy OTHER STA (10:53)
--- NOTE | 2018-07-10 11:11 | ECG ---
Date Performed: 07/10/2018 Time Performed: 06:14:44 PTAGE: 83 years EKG: Sinus rhythm Inferior infarct - age undetermined Abnormal ECG PREVIOUS TRACING : 07/09/2018 23.05 No significant change from previous tracing noted. DOCTOR: Roberto Sosa Interpretating Date/Time 07/10/2018 11:10:14
--- NOTE | 2018-07-10 11:12 | ECG ---
Date Performed: 07/09/2018 Time Performed: 23:05:28 PTAGE: 83 years EKG: Sinus rhythm Inferior infarct - age undetermined Abnormal ECG PREVIOUS TRACING : 07/09/2018 16.45 Compared to previous tracing, PVCs are no longer present. DOCTOR: Roberto Sosa Interpretating Date/Time 07/10/2018 11:10:47
--- NOTE | 2018-07-10 17:57 | P.PNIM ---
Subjective Interval history: Patient says he is feeling well. Denies any chest pain or shortness of breath currently. Physical Exam Vital signs: Vital Signs 07/09/18 18:56 07/09/18 19:00 07/09/18 20:00 Temperature 97.3 F L Pulse Rate 66 67 67 Respiratory Rate 21 16 16 Blood Pressure 109/62 109/62 113/55 L Pulse Oximetry 99 98 96 07/10/18 00:00 07/10/18 04:00 07/10/18 07:45 Temperature 97.7 F 97.6 F Pulse Rate 63 68 Respiratory Rate 16 16 Blood Pressure 111/64 136/71 Pulse Oximetry 95 98 95 07/10/18 08:00 07/10/18 08:10 07/10/18 10:49 Temperature 97.6 F Pulse Rate 64 61 Respiratory Rate 20 Blood Pressure 121/72 Pulse Oximetry 96 99 Intake & Output 07/09/18 07/10/18 07/10/18 18:59 06:59 18:59 Output Total 250 / 250 Balance -250 / -250 Weight 89.811 kg 87.4 kg Output: Urine 250 / 250 Other: Date of Last Bowel Movement 07/09/18 07/09/18 Weight On Admission 87.4 kg Narrative: GENERAL: Patient lying in bed. Appears comfortable. SKIN: Warm and dry. HEAD: Normocephalic. EYES: No scleral icterus. No injection or drainage. NECK: Supple, trachea midline. No JVD. CARDIOVASCULAR: Regular rate and rhythm without murmurs, gallops, or rubs. RESPIRATORY: Breath sounds equal bilaterally. No accessory muscle use. GASTROINTESTINAL: Abdomen soft, non-tender, nondistended. MUSCULOSKELETAL: No cyanosis, or edema. BACK: Nontender without obvious deformity. No CVA tenderness. Results Labs CBC & Chem 7: 07/10/18 05:48 07/10/18 05:48 Assessment and Plan Plan 83-year-old white male with a history of coronary artery disease, non-insulin- dependent diabetes mellitus, hypertension presents with acute chest pain //Non-ST elevation myocardial infarction -heparin drip has been initiated. Aspirin, Lopressor, Nitropaste, check fasting lipid profile and start statin. Patient currently not taking Plavix, had a previous cardiac catheterization done June 2017. We will consult his back tender fourdrinier Dr. Waters for further recommendations. = Status post cardiac catheterization with stenting. Discussed with cardiology. Continue Plavix. Hopefully discharge tomorrow when cleared by cardiology. //Hypertension hold losartan HCTZ secondary to acute kidney injury superimposed on chronic kidney disease stage III, continue beta-luna -Blood pressure acceptable off of ARB. Continue to monitor. //Acute kidney injury superimposed on chronic kidney disease stage IIIstop metformin, hold losartan HCTZ. IV fluid hydration overnight and repeat creatinine in the morning. Avoid nephrotoxins. = Creatinine improving. //Rut-aazezbr-gqkyhtfep diabetes mellituscontinue monitor blood sugar with sliding scale insulin. Stop metformin secondary to chronic kidney disease. Restart glipizide in the morning if diet can be resumed if no interventions planned. DVT prophylaxisheparin Disposition. Plan for discharge tomorrow morning. Patient would like prescription for Plavix called to [facility] pharmacy. Progress Note: Quality VTE Deep Vein Thrombosis/Pulmonary Embolism Present on Admission: No
--- NOTE | 2018-07-11 02:52 | MB ---
cc: Tip Waters DO DATE: 07/10/2018 REASON FOR CONSULTATION: NSTEMI. HISTORY OF PRESENT ILLNESS: Rafael Morales is a pleasant 83-year-old male, whom I see in the office and presented to [facility] due to substernal chest pain. He had returned home from a bowling trip and was sitting in his recliner. He started noticing pressure on his chest, radiating to his jaw, and was 8/10 in intensity. He denies any other symptoms with this. The pain is similar to when he has had a heart attack in the past. His gave him 2 aspirins and a neighbor started driving him to the Emergency Room. As the chest pain was worsening, they called 911 and pulled off to the side of the road. He was given a nitro spray, which did relieve the pain. In seeing him, he currently is hemodynamically stable without chest pain. He previously had a stent placed by myself in June of 2017. He is not currently on Plavix and this is because the is having trouble with vision and apparently they ran out of the medication and she did not realize it. PAST MEDICAL HISTORY: 1. Coronary artery disease. 2. Diabetes. 3. Hypertension. 4. Myocardial infarction. PAST SURGICAL HISTORY: Cardiac catheterization (06/18/2017): Left main normal. LAD mid portion stent 30% in-stent restenosis with distal to this 40%-50%. Left circumflex 95%. RCA 30%. Underwent PCI of left circumflex with an [place] drug-eluting stent (2.75 x 12). ALLERGIES: NO KNOWN DRUG ALLERGIES. MEDICATIONS: 1. Losartan/hydrochlorothiazide 10/25 mg daily. 2. Aspirin 81 mg daily. 3. Propranolol 100 mg daily. 4. Metformin 850 mg t.i.d. 5. Glipizide 10 mg t.i.d. FAMILY HISTORY: Denies sudden cardiac within the family. SOCIAL HISTORY: The patient denies current tobacco, alcohol or drug abuse. He is a former smoker. REVIEW OF SYSTEMS: Fourteen systems were reviewed including osteopathic. Pertinent positives and negatives above, otherwise negative. PHYSICAL EXAMINATION: VITAL SIGNS: Temperature 97.6, heart rate 64, blood pressure 121/72, respirations 20, pulse oximetry 96% on room air. GENERAL: The patient appears well, in no acute distress, alert, awake and oriented x 3. HEENT: Extraocular muscles intact. Mucous membranes moist. NECK: Supple. No JVD at 45 degrees. No carotid bruits heard bilaterally. Carotid upstroke is brisk in nature. HEART: Regular rate and rhythm. Positive first and second heart sounds with no noted murmurs, gallops or rubs. LUNGS: Clear to auscultation bilaterally. No wheezes, rales or rhonchi. ABDOMEN: Soft, nontender, nondistended. No organomegaly noted. EXTREMITIES: Show no clubbing, cyanosis or edema. Femoral and distal pulses intact bilaterally. NEUROLOGIC: No focal deficits. SKIN: Warm, dry and intact. OSTEOPATHIC: No kyphoscoliosis, lordosis or paraspinal tender points. LABORATORY DATA: Hemoglobin 12.0, hematocrit 33.3, platelets 190. Potassium 4.0, BUN 32, creatinine 1.68. Troponin 0.34. Electrocardiogram (07/10/2018 at 0614 hours): Sinus rhythm, possible inferior infarct, age undetermined. IMPRESSIONS: 1. Non-ST elevation myocardial infarction. 2. Chest pain concerning for coronary insufficiency. 3. Coronary artery disease with previous stent placement. 4. Chronic kidney disease. 5. Diabetes mellitus. RECOMMENDATIONS: 1. Mr. Morales presented with chest pain concerning for coronary insufficiency as well as an elevated troponin. 2. Because of this, we recommended cardiac catheterization. Risks, benefits and alternatives have been explained to him and he consented to such. 3. He is currently off Plavix and this is due to his having trouble with vision and becoming more blind. She admits that she did not realize they had run out of Plavix and never got it refilled. 4. Further recommendations will be made based on the hospital course. Thank you for allowing me to see Rafael Morales. If there are any questions, please do not hesitate to call. DO MARY Zavaleta/zenaida , 01:58 AM , 02:10 AM
--- NOTE | 2018-07-11 03:04 | MA ---
cc: Tip Waters DO DATE: 07/10/2018 PROCEDURE: Left heart catheterization, coronary angiogram, moderate sedation 38 minutes, Xience Alpine drug-eluting stent (3 x 18) to right coronary artery. PREPROCEDURE DIAGNOSES: Non-ST elevation myocardial infarction, coronary artery disease, chest pain concerning for coronary insufficiency. POSTPROCEDURE DIAGNOSIS: Non-ST elevation myocardial infarction, status post a Xience Alpine drug-eluting stent (3 x 18). MEDICATIONS: Versed 0.5 mg, fentanyl 25 mcg, nitro 200 mcg, heparin 8700 units, Plavix 600 mg. CONTRAST USED: 90 mL. FLUOROSCOPY: 7.4 minutes. MODERATE SEDATION: 38 minutes. FRAILTY SCORE: 5. ESTIMATED BLOOD LOSS: 10 mL. PROCEDURAL SUMMARY: Rafael Morales is a pleasant 83-year-old male who presented to [place] due to chest pain. He was found to have an elevated troponin and because of this, recommended cardiac catheterization. Risks, benefits and alternatives were explained to him and he consented to such. He was brought to the lab and prepped in the usual sterile fashion. The right radial artery was accessed using modified Seldinger technique and placement of a 5/6 [place] slender sheath. This was easily aspirated and flushed. JR4 was advanced over a J-wire to the ascending aorta and across the aortic valve for measurement of left ventricular pressure. This was pulled back across the aortic valve showing no significant gradient of aortic stenosis. JR4 was used for selective angiography of the right coronary artery system. This was exchanged out for a JL3.5, which was used for selective angiography of the left coronary artery system. Please see notes below for intervention. FINDINGS: LEFT MAIN: Normal-sized vessel with adequate reflux. It bifurcates into an LAD and circumflex. LAD: Normal size vessel with previous stent in the mid portion, which has 30%-40% in-stent restenosis. Distal to this, the vessel has 50% stenosis. It gives off 2 major diagonals with the first one being larger and no significant disease. The second one has 40% ostial stenosis. LEFT CIRCUMFLEX: Moderate size vessel with a stent in the mid portion and no significant in-stent restenosis. It gives off 2 obtuse marginals with the first one having 30%-40% ostial stenosis. Second one shows no significant disease. RCA: Moderate size vessel with a 99% proximal stenosis. Distally, it supplies a PDA and small posterolateral branch. LVEDP 6. INTERVENTION: Due to the patient's symptoms as well as elevated troponin, I felt that his RCA needed to be fixed at this time. A JR4 guide was engaged in the RCA. Additional heparin was given as an anticoagulant. A BMW wire was advanced in the distal RCA. A compliant balloon (2.75 x 15) was used to predilate the lesion. A Xience Alpine drug-eluting stent (3 x 18) was then placed over the lesion and deployed. A noncompliant balloon (3 x 12) was used to post-dilate the stent. Final angiogram shows a well-opposed stent with no perforations or dissections. The guide was removed. Radial band was placed over the arteriotomy site for hemostasis. The patient was given 600 mg of Plavix. 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 INTERVENTIONAL DATA: Vessel RCA, lesion length 15, pre-DORA 3, post-DORA 3, post-stenosis 0. IMPRESSIONS: 1. Non-ST elevation myocardial infarction. 2. Coronary artery disease, status post Xience Alpine drug-eluting stent (3 x 18) to proximal right coronary artery. RECOMMENDATIONS: 1. Mr. Morales underwent PCI as above and will be recommended aspirin and Plavix therapy. 2. He will continue on his beta luna and this will not be changed to metoprolol as he uses this also for tremors and has felt that propranolol helps him more. 3. He will continue on statin therapy. 4. We will not start him on FREDERIC inhibitor therapy due to his acute kidney injury on chronic kidney disease. 5. If stable, in the morning, we will plan to discharge home. Thank you for allowing me to see Rafael Morales. If there are any questions, please do not hesitate to call. DO KING ZavaletaP/zenaida , 02:06 AM , 02:19 AM
[2018-07-11 06:12] LABS: Baso % (Auto) 0.4 % (0.0-2.0); Eos # (Auto) 0.6 th/mm3 (0.0-0.4); Eos % (Auto) 9.4 % (0.0-4.0); Hematocrit 35.9 % (39.0-51.0); Hemoglobin 12.7 gm/dL (13.0-17.0); Lymph # (Auto) 1.2 th/mm3 (1.0-4.8); Lymph % (Auto) 16.7 % (9.0-44.0); Mean Corpuscular HGB Conc 35.2 % (32.0-36.0); Mean Corpuscular Hemoglobin 31.9 pg (27.0-34.0); Mean Corpuscular Volume 90.6 fL (80.0-100.0); Mean Platelet Volume 8.1 fL (7.0-11.0); Mono # (Auto) 0.6 th/mm3 (0.0-0.9); Neut # (Auto) 4.5 th/mm3 (1.8-7.7); Neut % (Auto) 65.5 % (16.0-70.0); Platelet Count 211 th/mm3 (150-450); Red Blood Count 3.97 mil/mm3 (4.50-5.90); Red Cell Distribution Width 13.8 % (11.6-17.2); White Blood Count 6.9 th/mm3 (4.0-11.0)
[2018-07-11 06:37] LABS: Calcium 8.8 mg/dL (8.5-10.1); Carbon Dioxide 28.7 meq/L (21.0-32.0); Potassium 3.6 meq/L (3.5-5.1)
[2018-07-11 08:14] VITALS: BP 142/80; RESP 16; TEMP 97.5; O2SAT 95
[2018-07-11] MEDS: Insulin NovoLOG Aspart Correctional Sugar Inj SQ SCH (08:18)
[2018-07-11] MEDS: Metoprolol Tartrate 25 MG Tablet PO SCH (08:19)
--- NOTE | 2018-07-11 11:25 | P.DS ---
DS: Providers Date of admission: 07/09/18 18:13 Primary care physician: Paramjit Guthrie MD Consults: 07/09/18 18:12 Consult to Cardiology Routine Consulting Provider: Tip Waters Does the patient have a Freight Router who follows them?: Yes Preferred Sliver Cutter:: Tip Waters Reason for Consultation: NSTEMI Notified:: Service Spoke with:: Tomasa Date Notified:: 07/09/18 Time Notified:: 18:16 Ordering Provider: SHELTON 07/10/18 08:53 HUB Only Consult Order Routine Consulting Provider: Ethel Davenport Brief History from admission: 83-year-old white male with a history of coronary artery disease, diabetes mellitus, [id number], hypertension who presented to emergency room after he developed acute onset of substernal chest pain when he returned home from a bowling trip while he was sitting in the recliner. He describes the pain as a pressure-like pain with radiation to his jaw with a 8 out of 10 in intensity with no association with nausea, diaphoresis nor shortness of breath. He reports his pain was similar to the pain he has had in the past when he had a heart attack. His then gave him 2 aspirins and then called a neighbor to attempt to transport him to the nearest emergency room however secondary to worsening of the chest pain, they pulled aside and called for 911 in which EVAC responded and gave him nitro spray which did relieve the pain. Currently patient states that he is chest pain-free. He had a cardiac catheterization with stent placement with Dr. Waters back in June 2017. He states that initially he could not afford the Brilinta and medication was changed to Plavix. His last fill of the Plavix in March 08 after reviewing external medication data and since then has not been taking this medicine since May of this year. He denies any symptoms of orthopnea, paroxysmal nocturnal dyspnea, nor lower extremity edema. DS: Summary 83-year-old white male with a history of coronary artery disease, non-insulin- dependent diabetes mellitus, hypertension presents with acute chest pain Non-ST elevation myocardial infarction -heparin drip has been initiated. Aspirin, Lopressor, Nitropaste, check fasting lipid profile and start statin. Patient currently not taking Plavix, had a previous cardiac catheterization done June 2017. We will consult his quality assurance supervisor final Dr. Waters for further recommendations. s/p LENCHO to RCA by Dr Colon Discussed with cardiology Dr Colon. Continue Plavix and ASA. Will continue on Propranolol due to help with tremors and not change to Metoprolol. Continue statin. No FREDERIC-I at this time with his CKD with mild JAKY Hypertension hold losartan HCTZ secondary to acute kidney injury superimposed on chronic kidney disease stage III, continue beta-luna -Blood pressure acceptable off of ARB. Continue to monitor. Acute kidney injury superimposed on chronic kidney disease stage IIIstop metformin, hold losartan HCTZ. IV fluid hydration overnight and repeat creatinine in the morning. Avoid nephrotoxins. = Creatinine improving. [id number] diabetes mellituscontinue monitor blood sugar with sliding scale insulin. Stop metformin secondary to chronic kidney disease. Restart glipizide in the morning if diet can be resumed if no interventions planned. Patient improved significantly. He is ambulating in the room without any problems. Feels comfortable to go home. Is cleared by cardiology for discharge. Patient is discharged home in stable condition to follow-up with PCP and consultants as outpatient. Time Spent with Patient Total time spent providing and/or coordinating discharge services: . 30 min Quality: VTE Deep Vein Thrombosis/Pulmonary Embolism Present on Admission: No Exam Narrative Exam Narrative: GENERAL: Patient is a pleasant 83 yo male, appear in nad, able to ambulate without problems SKIN: Warm and dry. HEAD: Normocephalic. EYES: No scleral icterus. No injection or drainage. NECK: Supple, trachea midline. No JVD. CARDIOVASCULAR: Regular rate and rhythm without murmurs, gallops, or rubs. RESPIRATORY: Breath sounds equal bilaterally. No accessory muscle use. GASTROINTESTINAL: Abdomen soft, non-tender, nondistended. MUSCULOSKELETAL: No cyanosis, or edema. BACK: Nontender without obvious deformity. No CVA tenderness. Results Labs on day of discharge: Labs from last 24 hours 07/11/18 07/11/18 07/10/18 05:15 05:15 21:12 WBC 6.9 RBC 3.97 L Hgb 12.7 L Hct 35.9 L MCV 90.6 MCH 31.9 MCHC 35.2 RDW 13.8 Plt Count 211 MPV 8.1 Neut % (Auto) 65.5 Lymph % (Auto) 16.7 Mccormick % (Auto) 8.0 Eos % (Auto) 9.4 H Baso % (Auto) 0.4 Neut # (Auto) 4.5 Lymph # (Auto) 1.2 Mccormick # (Auto) 0.6 Eos # (Auto) 0.6 H Baso # (Auto) 0.0 WBC Differential . Differential Comment Auto diff final Sodium 140 Potassium 3.6 Chloride 105 Carbon Dioxide 28.7 Anion Gap 6 BUN 25 H Creatinine 1.46 H Estimated GFR 46 L POC Glucose 265 H Random Glucose 138 H Calcium 8.8 07/10/18 18:21 WBC RBC Hgb Hct MCV MCH MCHC RDW Plt Count MPV Neut % (Auto) Lymph % (Auto) Mccormick % (Auto) Eos % (Auto) Baso % (Auto) Neut # (Auto) Lymph # (Auto) Mccormick # (Auto) Eos # (Auto) Baso # (Auto) WBC Differential Differential Comment Sodium Potassium Chloride Carbon Dioxide Anion Gap BUN Creatinine Estimated GFR POC Glucose 335 H Random Glucose Calcium Impressions ITS Impressions Chest X-Ray 07/09/18 16:53 CONCLUSION: 1. Mild cardiomegaly. 2. No focal infiltrate or pulmonary vascular congestion. Discharge Plan Discharge Disposition Patient Disposition: Discharge Home Discharge Condition Condition: Stable Discharge Order Discharge Orders: Discharge Order (Routine); Ordered 07/11/18 Ordered By: Jessica Gruber Discharge Details Anticipated Discharge Date: 07/11/18 Physicians Team Primary Care Provider: Paramjit Guthrie Attending Provider: Jessica Gruber Other Providers: Tip Waters ; Ethel Davenport Rxs /Orders / Referrals /Forms Prescriptions: New clopidogrel [Plavix] 75 mg Tablet 75 mg PO DAILY Qty: 30 RF: 0 atorvastatin 40 mg Tablet 40 mg PO HS Qty: 30 RF: 0 Continue multivitamin Tablet 1 tab PO DAILY RF: 0 aspirin [Aspirin Low Dose] 81 mg Tablet,Delayed Release (Dr/Ec) 81 mg PO DAILY RF: 0 losartan-hydrochlorothiazide 100-25 mg Tablet 1 tab PO DAILY RF: 0 propranolol 120 mg Capsule,Extended Release 24 Hr 100 mg PO DAILY RF: 0 metformin 850 mg Tablet 850 mg PO TID RF: 0 glipizide 10 mg tablet 10 mg PO TID RF: 0 Referrals: Paramjit Guthrie MD [Primary Care Provider] - See Instructions ( Please call the physician's office to book the appointment to be seen within 2-3 days[].) Tip Waters, DO [Physician] - See Instructions ( Please call the physician's office to book the appointment to be seen within [1-2 weeks ].) Discharge Instructions Patient Printed Instructions: Atorvastatin (By mouth), Clopidogrel (By mouth), Heart Attack (DC), Coronary Artery Disease (DC), Chest Pain (ED), Hypertension ( DC), Heart Catheterization (DC) Status ED Status: Left Department Discharge Information Discharge Date/Time: 07/11/18 12:12
[2018-07-11 11:29] VITALS: PULSE 64
--- NOTE | 2018-07-11 15:23 | P.PNCA ---
Subjective Interval history: No events overnight No further chest pain Medications and Allergies Allergies Allergy/AdvReac Type Severity Reaction Status Date / Time No Known Allergies Allergy Verified 04/17/18 22:12 Home Medications Medication Instructions Recorded Confirmed Type aspirin [Aspirin Low Dose] 81 mg PO DAILY 12/03/17 07/09/18 History losartan-hydrochlorothiazide 1 tab PO DAILY 12/03/17 07/09/18 History multivitamin 1 tab PO DAILY 12/03/17 07/09/18 History propranolol 100 mg PO DAILY 12/03/17 07/09/18 History glipizide 10 mg PO TID 07/09/18 07/09/18 History metformin 850 mg PO TID 07/09/18 07/09/18 History Physical Exam Vital signs: Vital Signs 07/10/18 16:00 07/10/18 17:00 07/10/18 18:00 Temperature Pulse Rate 64 72 84 Respiratory Rate 16 Blood Pressure 137/67 Pulse Oximetry 96 07/10/18 18:39 07/10/18 19:00 07/10/18 20:00 Temperature 98.3 F Pulse Rate 69 68 Respiratory Rate 18 Blood Pressure 150/84 H Pulse Oximetry 99 95 07/10/18 21:00 07/10/18 22:00 07/10/18 23:00 Temperature Pulse Rate 70 82 69 Respiratory Rate Blood Pressure Pulse Oximetry 07/11/18 00:00 07/11/18 01:00 07/11/18 02:00 Temperature Pulse Rate 66 64 80 Respiratory Rate 18 Blood Pressure 135/74 Pulse Oximetry 96 07/11/18 03:00 07/11/18 04:00 07/11/18 05:00 Temperature Pulse Rate 65 62 70 Respiratory Rate 18 Blood Pressure 134/73 Pulse Oximetry 96 07/11/18 06:00 07/11/18 07:00 07/11/18 08:00 Temperature Pulse Rate 65 71 66 Respiratory Rate Blood Pressure Pulse Oximetry 07/11/18 08:11 07/11/18 08:14 07/11/18 09:00 Temperature 97.5 F L Pulse Rate 67 76 Respiratory Rate 16 Blood Pressure 142/80 H Pulse Oximetry 95 95 07/11/18 09:42 07/11/18 10:00 07/11/18 11:00 Temperature Pulse Rate 62 64 Respiratory Rate Blood Pressure Pulse Oximetry 95 Intake & Output 07/10/18 07/11/18 07/11/18 18:59 06:59 18:59 Intake Total 1490 / 1490 240 / 240 Output Total 1250 / 1250 700 / 700 220 / 220 Balance -1250 / -1250 790 / 790 Weight 85 kg Intake: IV 1250 / 1250 Oral 240 / 240 240 / 240 Output: Urine 1250 / 1250 700 / 700 220 / 220 Other: Date of Last Bowel Movement 07/09/18 07/09/18 07/09/18 # Bowel Movements 0 Narrative: GENERAL: NAD, AAOx3 SKIN: Warm and dry. HEAD: Atraumatic. Normocephalic. EYES: Pupils equal and round. No scleral icterus. No injection or drainage. ENT: No nasal bleeding or discharge. Mucous membranes pink and moist. NECK: Trachea midline. No JVD. CARDIOVASCULAR: Regular rate and rhythm. RESPIRATORY: No accessory muscle use. Clear to auscultation. Breath sounds equal bilaterally. GASTROINTESTINAL: Abdomen soft, non-tender, nondistended. Hepatic and splenic margins not palpable. MUSCULOSKELETAL: Extremities without clubbing, cyanosis, or edema. No obvious deformities. NEUROLOGICAL: Awake and alert. No obvious cranial nerve deficits. Motor grossly within normal limits. Five out of 5 muscle strength in the arms and legs. Normal speech. PSYCHIATRIC: Appropriate mood and affect; insight and judgment normal. Results 07/11/18 05:15 07/11/18 05:15 Cardiac Enzymes 07/09/18 07/09/18 07/09/18 Range/Units 16:49 16:49 23:20 AST 13 L (15-37) U/L Troponin I 0.22 H 0.28 H (0.02-0.05) ng/mL B-Natriuretic Peptide 64 (0-100) pg/mL 07/10/18 Range/Units 05:48 AST (15-37) U/L Troponin I 0.34 H (0.02-0.05) ng/mL B-Natriuretic Peptide (0-100) pg/mL Coagulation 07/09/18 07/09/18 07/09/18 Range/Units 16:49 16:49 23:20 PT 10.6 (9.8-11.6) sec APTT 26.4 36.7 H D (23.4-31.7) sec B-Natriuretic Peptide 64 (0-100) pg/mL 07/10/18 Range/Units 05:48 PT (9.8-11.6) sec APTT 39.8 H (23.4-31.7) sec B-Natriuretic Peptide (0-100) pg/mL Lipids 07/10/18 Range/Units 05:48 Triglycerides 63 (42-150) mg/dL Cholesterol 87 L (120-200) mg/dL HDL Cholesterol 35.8 L (40.0-60.0) mg/dL Cholesterol/HDL Ratio 2.43 Ratio CBC 07/09/18 07/10/18 07/11/18 Range/Units 16:49 05:48 05:15 WBC 6.3 6.5 6.9 (4.0-11.0) th/mm3 RBC 3.94 L 3.71 L 3.97 L (4.50-5.90) mil/mm3 Hgb 12.7 L 12.0 L 12.7 L (13.0-17.0) gm/dL Hct 36.2 L 33.3 L 35.9 L (39.0-51.0) % Plt Count 224 190 211 (150-450) th/mm3 Neut # (Auto) 3.2 4.5 (1.8-7.7) th/mm3 Lymph # (Auto) 1.7 1.2 (1.0-4.8) th/mm3 Spencer # (Auto) 0.5 0.6 (0.0-0.9) th/mm3 Eos # (Auto) 0.7 H 0.6 H (0.0-0.4) th/mm3 Baso # (Auto) 0.1 0.0 (0.0-0.2) th/mm3 Comprehensive Metabolic Panel 07/09/18 07/10/18 07/11/18 Range/Units 16:49 05:48 05:15 Sodium 138 142 140 (136-145) meq/L Potassium 4.2 4.0 3.6 (3.5-5.1) meq/L Chloride 102 105 105 (98-107) meq/L Carbon Dioxide 26.4 30.0 28.7 (21.0-32.0) meq/L BUN 32 H 32 H 25 H (7-18) mg/dL Creatinine 1.99 H 1.68 H 1.46 H (0.60-1.30) mg/dL Calcium 8.7 9.3 8.8 (8.5-10.1) mg/dL AST 13 L (15-37) U/L ALT 17 (12-78) U/L Alkaline Phosphatase 90 (45-117) U/L Total Protein 7.5 (6.4-8.2) g/dL Albumin 3.5 (3.4-5.0) g/dL Intake and Output 07/11/18 07/11/18 07/11/18 06:59 14:59 22:59 Intake Total 240 / 240 240 / 240 Output Total 700 / 700 220 / 220 Balance -460 / -460 Intake: Oral 240 / 240 240 / 240 Output: Urine 700 / 700 220 / 220 Other: Date of Last Bowel Movement 07/09/18 07/09/18 Weight 85 kg - Imaging and Cardiology Imaging: Impressions Chest X-Ray 07/09/18 16:53 CONCLUSION: 1. Mild cardiomegaly. 2. No focal infiltrate or pulmonary vascular congestion. Assessment and Plan - Assessment (1) CAD (coronary artery disease) Code(s): I25.10 - Atherosclerotic heart disease of robinson coronary artery without angina pectoris Status: Acute (2) Chronic kidney disease (CKD) Code(s): N18.9 - Chronic kidney disease, unspecified Status: Acute (3) DM (diabetes mellitus) Code(s): E11.9 - Type 2 diabetes mellitus without complications Status: Acute (4) HTN (hypertension) Code(s): I10 - Essential (primary) hypertension Status: Acute (5) Non-ST elevation [place] (NSTEMI) Code(s): I21.4 - Non-ST elevation (NSTEMI) myocardial infarction Status: Acute - Plan 1) NSTEMI/CAD s/p LENCHO to RCA ASA/Plavix Will continue on Propranolol due to help with tremors and not change to Metoprolol Continue statin No FREDERIC-I at this time with his CKD with mild JAKY 2) Cardiovascularly stable for discharge Follow up in the office with me in 4-8 weeks (2) Chronic kidney disease (CKD) Qualifiers: Chronic kidney disease stage: unspecified stage Qualified Code(s): N18.9 - Chronic kidney disease, unspecified
== END 2018-07-11 12:12 | disposition home or self-care (01) | DRG 247 ==
LOC: NEPE 16:43 → NEDA 18:13 → N04 21:15 → HCIS 07-10 10:54
PROVIDERS: ADMIT Hospitalist; ATTEND Hospitalist
CPT/HCPCS: 71010; 71045; 80048; 80053; 80061; 82550; 82948; 82962; 83520; 83690; 83735; 83880; 84484; 85002; 85025; 85027; 85610; 85730; 92928; 93005; 93458; 99152; 99153; 99291; C1725; C1769; C1874; C1887; C1893; J1644; J1815; J2250; J3010; J7030; Q9967